=== PATIENT | female | born 1950 | race Caucasian/White ===

== ENCOUNTER 2019-03-11 12:35 | Outpatient (CLI) | payer MEDICARE, SELFPAY ==
--- NOTE | 2019-03-11 12:45 | USCV_ITS ---
Kathy Willoughby Age: 69 Gender: F : 1950 Exam Date: 03/11/2019 13:12 Ordering Phys: Debbie Burgos APRN Technologist: Sherita Chacon [place] [facility] [place]: CHEST PAIN, EDEMA BP: / HR: 68 Rhythm: Sinus Technical Quality: Fair MEASUREMENTS (Male / Female) Normal Values 2D ECHO LV Diastolic Diameter PLAX 5.7 cm 4.2 - 5.9 / 3.9 - 5.3 cm LV Systolic Diameter PLAX 2.8 cm LV Chamber Size 5.4 cm IVS Diastolic Thickness 0.8 cm 0.6 - 1.0 / 0.6 - 0.9 cm IVS Systolic Thickness 2.2 cm LVPW Diastolic Thickness 1.3 cm 0.6 - 1.0 / 0.6 - 0.9 cm LVPW Systolic Thickness 1.7 cm RV Chamber Size 4.5 cm LVOT Diameter 2.0 cm LV Ejection Fraction 2D Teich 81.8 % LV Ejection Fraction MOD 2C 59.9 % LV Ejection Fraction 2C AL 58.9 % LA Diameter 4.3 cm LA Width 3.9 cm LA Height 6.0 cm RA Width 3.8 cm RA Height 5.8 cm M-MODE LV Diastolic Diameter MM 6.8 cm 4.2 - 5.9 / 3.9 - 5.3 cm LV Systolic Diameter MM 4.5 cm LV Ejection Fraction MM Teich 61.7 % IVS Diastolic Thickness MM 0.7 cm 0.6 - 1.0 / 0.6 - 0.9 cm IVS Systolic Thickness MM 1.4 cm LVPW Diastolic Thickness MM 1.1 cm 0.6 - 1.0 / 0.6 - 0.9 cm LVPW Systolic Thickness MM 1.2 cm Aortic Annulus Diameter 3.1 cm LA Ao Ratio MM 1.4 MV E Point Septal Separation 0.6 cm DOPPLER AV Peak Velocity 176.0 cm/s LVOT Peak Velocity 109.0 cm/s AV Area Cont Eq vti 2.1 cm squared AV Area Cont Eq pk 2.0 cm squared MV Area PHT 2.5 cm squared Mitral E to A Ratio 1.3 MV E' Velocity 6.0 cm/s Mitral E to MV E' Ratio 21.3 Mitral E to LV E' Lateral Ratio 22.7 Mitral E to LV E' Septal Ratio 20.4 TR Peak Velocity 310.7 cm/s TR Peak Gradient 38.6 mmHg TR Mean Velocity 250.7 cm/s TR Mean Gradient 26.2 mmHg TR Velocity Time Integral 112.8 cm TV Peak E Velocity 51.0 cm/s Right Atrial Pressure 3.0 mmHg Pulmonary Artery Systolic Pressu 41.6 mmHg PV Peak Velocity 94.0 cm/s FINDINGS Left Ventricle Normal left ventricular cavity size. Normal left ventricular wall thickness. Normal left ventricular systolic function. Left ventricular ejection fraction is estimated at 65 %. No regional wall motion abnormalities. Grade 2 diastolic dysfunction with elevated left atrial pressure. Right Ventricle Normal right ventricular size and systolic function. Right ventricular systolic pressure 41.6 mmHg. Right Atrium Normal right atrial size. Right atrial pressure estimated at 3 mmHg. Left Atrium Mildly increased left atrial size. Mitral Valve Mildly thickened mitral valve. No mitral valve stenosis. Mild- moderate mitral valve regurgitation. Aortic Valve Structurally normal trileaflet aortic valve. No aortic valve stenosis. No aortic valve regurgitation. Tricuspid Valve Structurally normal tricuspid valve. No tricuspid valve stenosis. Mild tricuspid valve regurgitation. Pulmonic Valve Pulmonic valve not well visualized. No pulmonary valve stenosis. Trace pulmonary valve regurgitation. Pericardium No pericardial effusion. Aorta Mildly dilated ascending aorta measuring 40 mm anteroposteriorly CONCLUSIONS 1. Normal left ventricular cavity size, wall thickness and systolic function. Left ventricular ejection fraction is estimated at 65 %. No regional wall motion abnormalities. Grade 2 diastolic dysfunction with elevated left atrial pressure. 2. Normal right ventricular size and systolic function. 3. Right atrial pressure estimated at 3 mmHg. 4. Mild-moderate mitral valve regurgitation. 5. Mild tricuspid valve regurgitation. 6. Mild pulmonary hypertension with pulmonary artery pressure estimated at 42 mmHg. 7. No prior similar studies to compare. Kayleigh Samuel MD (Electronically Signed) Final Date: 11 March 2019 16:41 S
== END 2019-03-11 12:36 | disposition home or self-care (01) ==
DX: I34.0 Nonrheumatic mitral (valve) insufficiency (principal); R07.9 Chest pain, unspecified; R60.9 Edema, unspecified; I07.1 Rheumatic tricuspid insufficiency; I27.20 Pulmonary hypertension, unspecified
CPT/HCPCS: 93306

== ENCOUNTER 2019-04-06 06:17 | Day surgery (SDC) | payer MEDICARE, SELFPAY ==
[2019-04-05 13:56] VITALS: BMI 40.5
[2019-04-06] MEDS: sodium chloride 0.9% 1,000 ML 30 ML (06:45)
[2019-04-06 06:47] VITALS: BP 167/64; PULSE 73; RESP 18; TEMP 36.8; O2SAT 98
--- NOTE | 2019-04-06 06:49 | PM.HPUD ---
H&P update H&P Update: DATE OF SURGERY/PROCEDURE: 04/06/19 DATE H&P PERFORMED: 03/14/19 H&P UPDATE INFORMATION: H&P completed within last 30 days and No changes to prior documentation PREOP DIAGNOSIS: Anemia PLANNED PROCEDURE: Operation Date: 04/06/19 07:15 Proposed Procedures p EGD/Colon 94005 [id number] K21.9 Z12.11(Not Applicable) - Romain Vallejo MD s Colonoscopy(Not Applicable) - Romain Vallejo MD Full H&P Perinent History: Medical/Surgical History: Medical History (Updated 03/14/19 @ 11:03 by Romain Vallejo MD) Anemia (Acute) Family History: Family History (Updated 03/14/19 @ 10:43 by Nancy Lind RN) Father Stroke Mother Diabetes Sister Diabetes Social History: Social History Smoking and tobacco status: never smoked Second hand smoke exposure: No Smoking risk assessment/counseling performed?: No Alcohol intake: never Desire information about alcohol rehabilitation?: No Counseling given: No Desire information about substance/drug rehabilitation?: No Counseling given: No Adopted: No Caregiver/support person: Yes Lives independently: Yes Household members: spouse Housing: House Marital status: Number of children: 2 Number of grandchildren: 3 Highest education level completed: High School Graduate service: No Current occupational status: retired Current occupational exposures/hazards: No Pets and animals: Yes History of recent travel: No Sexually active: No Current gender identity: Female Nilam/Amish: [employer] [place] Special nilam needs: No Agree to transfusion: Yes Financial difficulty paying for basics: Not Very Hard
[2019-04-06 06:53] LABS: Glucose Point of Care 130 mg/dL (70-110)
--- NOTE | 2019-04-06 06:56 | P.ANES_ITS ---
Pre-Anesthetic Assessment Pre-Anesthetic Assessment: Height/Weight: Height 1.68 m Weight 113.852 kg Temp Pulse Resp BP Pulse Ox 98.3 F 73 18 167/64 98 04/06/19 06:47 04/06/19 06:47 04/06/19 06:47 04/06/19 06:47 04/06/19 06:47 Preop Diagnosis: Anemia Proposed Procedure: Operation Date: 04/06/19 07:15 Proposed Procedures p EGD/Colon [id number] K21.9 Z12.11(Not Applicable) - Romain Vallejo MD s Colonoscopy(Not Applicable) - Romain Vallejo MD Was Beta Jenny taken within 24 hours: Yes Last intake: Intake Last Liquid Date 04/05/19 Last Liquid Time 22:30 Social: Social History: No alcohol and No tobacco Exam: Pre-Anes Outpt Exam: alert, oriented x 3, clear to auscultation bilaterally and regular rate & rhythm Airway: Submandibular: WNL Cervical ROM: WNL MP: 2 Dentition: Full History/ROS: No significant history except as noted and No significant complaints Pulmonary: Pulmonary: None reported CV/HEM: CV/HEM: Anemia and HTN : : None reported Hepatic: Hepatic: None reported GI: GI: GERD Metabolic: Metabolic: DM Musc/skel: Musc/skel: None reported Neuropsych: Neuropsych: None reported Anesthetic Plan: ASA status: III Anesthesia: MAC Risk of > 500 ml blood loss (7ml/kg in children): No PFSH Anesthesia PFSH: Medical History (Updated 03/14/19 @ 11:03 by Romain Vallejo MD) Anemia (Acute) Social History Smoking and tobacco status: never smoked Second hand smoke exposure: No Smoking risk assessment/counseling performed?: No Alcohol intake: never Desire information about alcohol rehabilitation?: No Counseling given: No Desire information about substance/drug rehabilitation?: No Counseling given: No Adopted: No Caregiver/support person: Yes Lives independently: Yes Household members: spouse Housing: House Marital status: Number of children: 2 Number of grandchildren: 3 Highest education level completed: High School Graduate service: No Current occupational status: retired Current occupational exposures/hazards: No Pets and animals: Yes History of recent travel: No Sexually active: No Current gender identity: Female Nilam/[employer]regation: [employer] [place] Special nilam needs: No Agree to transfusion: Yes Financial difficulty paying for basics: Not Very Hard Female Reproductive History: Para: 1 Spontaneous abortions: Yes Data Anesthesia Other Labs: Laboratory Results - last 48 hr 04/06/19 06:50 POC Glucose 130 Cardiac Studies: No Data to Display
[2019-04-06 07:24] VITALS: BP 172/70; PULSE 58; RESP 16; TEMP 36.6; O2SAT 100
[2019-04-06 07:39] VITALS: BP 130/88; PULSE 64; RESP 16; O2SAT 100
[2019-04-06 07:52] VITALS: BP 142/82; PULSE 67; RESP 16; O2SAT 99
== END 2019-04-06 08:10 | disposition home or self-care (01) ==
PROVIDERS: PCP Nurse Practitioner Family; Visit Provider Surgery
PROC: 0DJ08ZZ Inspection of Upper Intestinal Tract, Via Natural or Artificial Opening Endoscopic (ICD-10-PCS; CPT 43235; principal; 2019-04-06 07:15)
PROC: 0DJD8ZZ Inspection of Lower Intestinal Tract, Via Natural or Artificial Opening Endoscopic (ICD-10-PCS; CPT 45378; 2019-04-06 07:15)
DX: D64.9 Anemia, unspecified (principal); K21.9 Gastro-esophageal reflux disease without esophagitis; E11.9 Type 2 diabetes mellitus without complications; Z79.4 Long term (current) use of insulin; Z83.3 Family history of diabetes mellitus; K57.30 Diverticulosis of large intestine without perforation or abscess without bleeding; I10 Essential (primary) hypertension
CPT/HCPCS: 12345; 36416; 43235; 45378; 82962; 96365; J2001; J2704; J7030

== ENCOUNTER 2020-08-23 12:33 | Outpatient (CLI) | payer MEDICARE, SELFPAY ==
--- NOTE | 2020-08-23 12:45 | USCV_ITS ---
Kathy Willoughby Age: 70 Gender: F : 1950 Exam Date: 08/23/2020 12:57 Ordering Phys: Nita Knox Technologist: Amanda Vogel Exam Location: [facility] – [place] Indication: Right carotid bruit Risk Factors: Unknown Previous Vascular Surgery: None Right Brachial BP: / Left Brachial BP: / Right Left Velocity (cm/s) Spectral Plaque Velocity (cm/s) Spectral Plaque Syst/Diast Broadening Syst/Diast Broadening 115.00/20.20 Prox CCA 122.40/ 22.10 99.40/ 21.80 Mid CCA 98.10 / 14.30 88.60/ 17.10 Hetro Distal CCA 84.90 / 17.60 Hetro 83.90/ 18.60 Hetro Prox ICA 59.80 / 17.10 Hetro 80.80/ 18.60 Mid ICA 78.60 / 24.80 107.20/34.20 Distal ICA 79.40 / 26.50 97.90 ECA 66.70 Hetro 1.21 ICA/CCA 0.94 Antegrade Vertebral Antegrade 39.70/ 14.30 cm/s 48.50/ 13.20 cm/s Tri Subclavian Bi 91.50 115.1 0 CONCLUSIONS Right ICA stenosis <50%. Mild atheromatous plaque right carotid bulb/ICA. Left ICA stenosis <50%. Mild atheromatous plaque left carotid bulb/ICA. Normal antegrade Doppler flow noted in the right vertebral artery. Normal antegrade Doppler flow noted in the left vertebral artery. Bilateral thyroid nodules. Recommend futher evaluation with ultrasound Uli De Leon MD (Electronically Signed) Final Date: 23 August 2020 14:58 S
== END 2020-08-23 12:34 | disposition home or self-care (01) ==
LOC: RAD 12:37
PROVIDERS: PCP Nurse Practitioner Family; Visit Provider Nurse Practitioner Family
DX: R09.89 Other specified symptoms and signs involving the circulatory and respiratory systems (principal); I65.23 Occlusion and stenosis of bilateral carotid arteries; E04.2 Nontoxic multinodular goiter
CPT/HCPCS: 93880

== ENCOUNTER 2020-10-09 13:06 | Outpatient (CLI) | payer MEDICARE, SELFPAY ==
--- NOTE | 2020-10-09 13:30 | US_ITS ---
WS: [id number] THYROID ULTRASOUND HISTORY: E04.1 - Nontoxic single thyroid nodule COMPARISON: None available. Right lobe: 2.2 cm x 2.1 cm x 5.0 cm (w x ap x l). Volume: 11.9 cm3. Mildly enlarged thyroid. There are multiple nodules scattered within the gland. These nodules are non specific. Nodules are less than 1 cm. Left lobe: 1.8 cm x 2.1 cm x 5.0 cm (w x ap x l). Volume: 9.9 cm3. Mildly enlarged thyroid. Multiple nodules are identified. There is a solid-appearing nodule in the LEFT neck adjacent to the mid thyroid. This nodule measures 1.3 x 1.5 x 1.7 cm. This may be external to the thyroid. Isthmus: 0.4 cm. US/US thyroid [id number] IMPRESSION: 1. Multinodular goiter. 2. Indeterminate location of a soft tissue nodule in the LEFT neck measuring 1 .3 x 1.5 x 1.7 cm. Cannot confirm location based upon this ultrasound. This cou ld be external to the thyroid and a lymph node. Recommend follow-up neck CT wit h IV contrast for further evaluation.
== END 2020-10-09 13:07 | disposition home or self-care (01) ==
PROVIDERS: PCP Nurse Practitioner Family; Visit Provider Nurse Practitioner Family
DX: E04.2 Nontoxic multinodular goiter (principal)
CPT/HCPCS: 76536

== ENCOUNTER 2020-12-26 13:53 | Outpatient (CLI) | payer MEDICARE, SELFPAY ==
[2020-12-26 16:02] LABS: Creatinine Urine, Random 144 mg/dL (28-217)
[2020-12-26 17:41] LABS: Microalbum Creatinine Ratio Ur 3604 mg/dL (0-20)
== END 2020-12-26 13:54 | disposition home or self-care (01) ==
PROVIDERS: PCP Nurse Practitioner Family; Visit Provider Internal Medicine Nephrology
DX: N18.2 Chronic kidney disease, stage 2 (mild) (principal)
CPT/HCPCS: 82044

== ENCOUNTER 2020-12-31 12:00 | Outpatient (CLI) | payer MEDICARE, SELFPAY ==
[2020-12-31 13:24] LABS: Complement C3 119 mg/dL (90-180)
[2021-01-01 10:14] LABS: PROTEIN, TOTAL 6.4 g/dL (6.1-8.1)
[2021-01-01 12:59] LABS: KAPPA LIGHT CHAIN, FREE, SERUM 94.1 mg/L (3.3-19.4); KAPPA/LAMBDA LIGHT CHAINS FREE 2.19 (0.26-1.65)
[2021-01-01 15:34] LABS: ALBUMIN 3.5 g/dL (3.8-4.8); ALPHA 1 GLOBULIN 0.3 g/dL (0.2-0.3); BETA 1 GLOBULIN 0.4 g/dL (0.4-0.6); BETA 2 GLOBULIN 0.3 g/dL (0.2-0.5); GAMMA GLOBULIN 0.9 g/dL (0.8-1.7)
[2021-01-03 09:57] LABS: Anti-Double Strand DNA AB 1 IU/mL; Jo-1 Antibody <1.0 NEG AI (<1.0 NEG); SM/RNP Antibodies <1.0 NEG AI (<1.0 NEG); SS-B/LA IGG <1.0 NEG AI (<1.0 NEG); Scleroderma Ab(Scl-70) Ab <1.0 NEG AI (<1.0 NEG); Ss-A/Ro Igg <1.0 NEG AI (<1.0 NEG)
== END 2020-12-31 12:01 | disposition home or self-care (01) ==
PROVIDERS: PCP Nurse Practitioner Family; Visit Provider Internal Medicine Nephrology
DX: N18.2 Chronic kidney disease, stage 2 (mild) (principal); D64.9 Anemia, unspecified; E04.1 Nontoxic single thyroid nodule; Z79.899 Other long term (current) drug therapy
CPT/HCPCS: 36415; 83516; 83883; 84155; 84165; 86160; 86225; 86235

== ENCOUNTER 2021-03-19 12:56 | Outpatient (CLI) | payer MEDICARE, SELFPAY ==
--- NOTE | 2021-03-19 13:10 | MM_ITS ---
WS: [id number] BILATERAL DIGITAL SCREENING MAMMOGRAPHY WITH CAD CLINICAL INFORMATION: SCREENING HISTORY: Screening mammogram. No current complaints. COMPARISON: TECHNIQUE: Bilateral CC and MLO views. FINDINGS: Scattered fibroglandular densities bilaterally. Vascular calcification. Punctate and lucent centered calcifications. Stable secretory calcifications right breast. No suspicious focal mass, asymmetry, ca lcifications, or architectural distortion. No evidence of malignancy. MM/[place] [id number] IMPRESSION: BI-RADS: 2-Benign FOLLOW UP: 1 Year Follow-up Recommend return to annual screening mammography.
== END 2021-03-19 12:57 | disposition home or self-care (01) ==
PROVIDERS: PCP Nurse Practitioner Family; Visit Provider Nurse Practitioner Family
DX: Z12.31 Encounter for screening mammogram for malignant neoplasm of breast (principal)
CPT/HCPCS: 77067

== ENCOUNTER 2021-04-22 07:02 | Outpatient (CLI) | payer MEDICARE, SELFPAY ==
--- NOTE | 2021-04-22 07:10 | US_ITS ---
WS: [id number] RENAL ULTRASOUND HISTORY: CHRONIC KIDNEY DISEASE STAGE 2 COMPARISON: None available. TECHNIQUE: 2-D and color Doppler imaging of the kidney submitted. Right kidney: 10.0 cm x 5.5 cm x 4.9 cm. Normal echogenicity with no hydronephrosis or mass. Left kidney: 12.7 cm x 6.1 cm x 5.7 cm. Normal echogenicity with no hydronephrosis or mass. Aorta: Normal. Urinary Bladder: Minimal distention. US/US renal BI* [id number] IMPRESSION: Normal renal ultrasound.
== END 2021-04-22 07:03 | disposition home or self-care (01) ==
LOC: RAD 07:05
PROVIDERS: PCP Nurse Practitioner Family; Visit Provider Internal Medicine Nephrology
DX: N18.2 Chronic kidney disease, stage 2 (mild) (principal)
CPT/HCPCS: 76770

== ENCOUNTER 2021-06-18 09:29 | Outpatient (CLI) | payer MEDICARE, SELFPAY ==
[2021-06-18 10:05] LABS: Basophils # 0.1 10^3/uL (0.0-0.1); Basophils % 0.6 %; Eosinophils # 0.2 10^3/uL (0.0-0.8); Eosinophils % 2.6 %; Hemoglobin 8.7 g/dL (11.5-15.3); Lymphocytes # 1.3 10^3/uL (0.8-4.8); Lymphocytes % 16.4 %; Mean Corpuscular Hemoglobin 25.7 pg (28.0-34.0); Mean Corpuscular Volume 85.8 fl (81-99); Monocytes # 0.7 10^3/uL (0.2-0.9); Monocytes % 8.1 %; Neutrophils # 5.77 10^3/uL (1.8-7.7); Neutrophils % 71.9 %; Nucleated Red Blood Cells % 0 %; Platelet Count 201 10^3/cmm (130-400); Red Blood Count 3.38 10^6/uL (4.1-5.3); Red Cell Distribution Width 15.1 % (12.1-15.1)
[2021-06-18 10:24] LABS: Calcium 9.1 mg/dL (8.5-10.5)
[2021-06-18 10:25] LABS: Albumin Level 3.9 g/dL (3.5-5.2); Blood Urea Nitrogen 29 mg/dL (8-23); Calcium 9.2 mg/dL (8.5-10.5); Carbon Dioxide 25 mmol/L (22-29); Chloride 102 mmol/L (98-107); Glucose 86 mg/dL (65-115); Phosphorus 4.3 mg/dL (2.5-4.5); Sodium 138 mmol/L (136-145)
[2021-06-18 10:31] LABS: Parathyroid Hormone 123.1 pg/mL (15-65)
[2021-06-18 10:32] LABS: Creatinine Urine, Random 122 mg/dL (28-217)
[2021-06-18 10:54] LABS: Microalbum Creatinine Ratio Ur 770 mg/dL (0-20); Microalbumin Random Urine 94 ug/dL (0-20)
== END 2021-06-18 09:30 | disposition home or self-care (01) ==
LOC: LAB 09:31
PROVIDERS: PCP Nurse Practitioner Family; Visit Provider Internal Medicine Nephrology
DX: N18.2 Chronic kidney disease, stage 2 (mild) (principal)
CPT/HCPCS: 36415; 80069; 82044; 82310; 83970; 85025

== ENCOUNTER 2021-07-01 09:09 | Outpatient (CLI) | payer MEDICARE, SELFPAY ==
[2021-07-01 12:55] LABS: Ferritin 43 ng/mL (15-150); Iron 44 ug/dL (37-145); Percent Saturation 16.3 % (20-50); Total Iron Binding Capacity 269 mcg/dl; Unsaturated Iron Binding 225 ug/dL (112-347)
== END 2021-07-01 09:10 | disposition home or self-care (01) ==
LOC: LAB 09:11
PROVIDERS: PCP Nurse Practitioner Family; Visit Provider Internal Medicine Nephrology
DX: N18.31 Chronic kidney disease, stage 3a (principal); D64.9 Anemia, unspecified
CPT/HCPCS: 36415; 82728; 83540; 83550

== ENCOUNTER → 2021-08-06 15:20 | Outpatient (BNVA) | payer MEDICARE, SELFPAY | PROVIDERS: PCP Nurse Practitioner Family; Visit Provider Internal Medicine Cardiovascular Disease | DX: R07.9 Chest pain, unspecified (principal); I11.9 Hypertensive heart disease without heart failure; R60.0 Localized edema | CPT/HCPCS: 93005; 99214; 99215 ==

== ENCOUNTER 2021-11-20 08:46 | Outpatient (CLI) | payer MEDICARE, SELFPAY ==
[2021-11-20 09:17] LABS: Basophils % 0.5 %; Eosinophils # 0.5 10^3/uL (0.0-0.8); Eosinophils % 5.9 %; Hematocrit 34.4 % (37.0-47.0); Hemoglobin 10.6 g/dL (11.5-15.3); Lymphocytes % 23.4 %; Mean Corpuscular HGB Conc 30.8 g/dL (30.0-36.0); Mean Corpuscular Volume 87.8 fl (81-99); Mean Platelet Volume 10.2 fL (7.4-10.4); Monocytes # 0.7 10^3/uL (0.2-0.9); Monocytes % 8.3 %; Neutrophils # 5.13 10^3/uL (1.8-7.7); Neutrophils % 61.7 %; Nucleated Red Blood Cells % 0 %; Platelet Count 241 10^3/cmm (130-400); Red Blood Count 3.92 10^6/uL (4.1-5.3); Red Cell Distribution Width 14.6 % (12.1-15.1); White Blood Count 8.3 10^3/uL (4.0-10.0)
[2021-11-20 09:38] LABS: Albumin Level 3.7 g/dL (3.5-5.2); Anion Gap 15.3 (5-19); Blood Urea Nitrogen 39 mg/dL (8-23); Calcium 9.2 mg/dL (8.5-10.5); Carbon Dioxide 27 mmol/L (22-29); Chloride 100 mmol/L (98-107); Glucose 58 mg/dL (65-115); Phosphorus 3.6 mg/dL (2.5-4.5); Potassium 4.3 mmol/L (3.5-5.1); Sodium 138 mmol/L (136-145)
[2021-11-20 09:40] LABS: Calcium 9.3 mg/dL (8.5-10.5)
[2021-11-20 10:36] LABS: Creatinine Urine, Random 97 mg/dL (28-217); Microalbumin Random Urine 25 ug/dL (0-20)
[2021-11-20 10:37] LABS: Microalbum Creatinine Ratio Ur 258 mg/dL (0-20)
[2021-11-20 10:43] LABS: Parathyroid Hormone 103.7 pg/mL (15-65)
== END 2021-11-20 08:47 | disposition home or self-care (01) ==
LOC: LAB 08:49
PROVIDERS: PCP Nurse Practitioner Family; Visit Provider Internal Medicine Nephrology
DX: N18.31 Chronic kidney disease, stage 3a (principal)
CPT/HCPCS: 80069; 82044; 82310; 83970; 85025

== ENCOUNTER 2022-02-05 08:36 | Outpatient (CLI) | payer MEDICARE, SELFPAY ==
[2022-02-05 09:42] LABS: Basophils # 0.1 10^3/uL (0.0-0.1); Basophils % 0.6 %; Eosinophils # 0.4 10^3/uL (0.0-0.8); Eosinophils % 4.3 %; Hematocrit 33.9 % (37.0-47.0); Hemoglobin 10.5 g/dL (11.5-15.3); Lymphocytes # 1.6 10^3/uL (0.8-4.8); Lymphocytes % 16.7 %; Mean Corpuscular Hemoglobin 27.4 pg (28.0-34.0); Mean Corpuscular Volume 88.5 fl (81-99); Mean Platelet Volume 10.1 fL (7.4-10.4); Monocytes # 0.8 10^3/uL (0.2-0.9); Monocytes % 8.2 %; Neutrophils # 6.59 10^3/uL (1.8-7.7); Nucleated Red Blood Cells % 0 %; Platelet Count 216 10^3/cmm (130-400); Red Blood Count 3.83 10^6/uL (4.1-5.3); Red Cell Distribution Width 13.8 % (12.1-15.1); White Blood Count 9.4 10^3/uL (4.0-10.0)
[2022-02-05 10:01] LABS: Albumin Level 3.8 g/dL (3.5-5.2); Blood Urea Nitrogen 31 mg/dL (8-23); Calcium 9.8 mg/dL (8.5-10.5); Carbon Dioxide 29 mmol/L (22-29); Chloride 97 mmol/L (98-107); Glucose 96 mg/dL (65-115); Phosphorus 4.1 mg/dL (2.5-4.5); Sodium 135 mmol/L (136-145)
[2022-02-05 10:17] LABS: 25 Hydroxy Vitamin D 8 ng/mL (30-100)
[2022-02-05 10:27] LABS: Creatinine Urine, Random 20 mg/dL (28-217); Microalbumin Random Urine 16 ug/dL (0-20)
[2022-02-05 10:31] LABS: Microalbum Creatinine Ratio Ur 800 mg/dL (0-20)
[2022-02-05 11:32] LABS: Parathyroid Hormone 101.6 pg/mL (15-65)
[2022-02-05 11:46] LABS: Calcium 9.9 mg/dL (8.5-10.5)
[2022-02-07 11:47] LABS: NT Pro B Type Natriuretic Pept 921 pg/mL (0-125)
== END 2022-02-05 08:37 | disposition home or self-care (01) ==
PROVIDERS: Nurse Practitioner Family; PCP Nurse Practitioner Family; Visit Provider Registered Nurse
DX: E55.9 Vitamin D deficiency, unspecified (principal)
CPT/HCPCS: 36415; 80069; 82044; 82306; 82310; 83880; 83970; 85025

== ENCOUNTER → 2022-02-07 10:13 | Outpatient (BNVA) | payer MEDICARE, SELFPAY | PROVIDERS: PCP Nurse Practitioner Family; Visit Provider Nurse Practitioner Family | DX: R60.0 Localized edema (principal) | CPT/HCPCS: 99214 ==

== ENCOUNTER 2022-04-24 12:48 | Outpatient (CLI) | payer MEDICARE, SELFPAY ==
--- NOTE | 2022-04-24 13:07 | MM_ITS ---
WS: [id number] Bilateral screening 3D tomosynthesis digital mammogram, 04/24/2022 Clinical Data: SCREENING Comparison: 03/19/2021, 07/03/2017, 12/21/2015, 12/13/2015. Findings: The breast parenchymal pattern shows fibroglandular tissue. No spiculated masses or clustered calcifi cations are seen. There are no secondary signs of carcinoma. There are small benign calcifications th roughout both breasts including vascular calcifications. There are bilateral lymph nodes in the axill a. MM/[place] [id number] Impression: 1. Negative bilateral mammogram unchanged. 2. Recommend annual screening mammograms. BIRADS: 1-Negative FOLLOW UP: 1 Year Follow-up The CAD store clerk checker was used.
== END 2022-04-24 12:49 | disposition home or self-care (01) ==
LOC: RAD 12:50
PROVIDERS: PCP Nurse Practitioner Family; Visit Provider Nurse Practitioner Family
DX: Z12.31 Encounter for screening mammogram for malignant neoplasm of breast (principal)
CPT/HCPCS: 77063; 77067

== ENCOUNTER 2022-06-24 09:36 | Outpatient (CLI) | payer MEDICARE, SELFPAY ==
[2022-06-24 10:48] LABS: Basophils # 0.1 10^3/uL (0.0-0.1); Basophils % 0.6 %; Eosinophils # 0.2 10^3/uL (0.0-0.8); Hematocrit 29.6 % (37.0-47.0); Lymphocytes # 1.7 10^3/uL (0.8-4.8); Lymphocytes % 19.2 %; Mean Corpuscular HGB Conc 30.4 g/dL (30.0-36.0); Mean Corpuscular Hemoglobin 26.9 pg (28.0-34.0); Mean Corpuscular Volume 88.4 fl (81-99); Mean Platelet Volume 10.5 fL (7.4-10.4); Monocytes # 0.8 10^3/uL (0.2-0.9); Monocytes % 9.1 %; Neutrophils # 5.96 10^3/uL (1.8-7.7); Neutrophils % 68.9 %; Nucleated Red Blood Cells % 0 %; Platelet Count 207 10^3/cmm (130-400); Red Blood Count 3.35 10^6/uL (4.1-5.3); White Blood Count 8.7 10^3/uL (4.0-10.0)
[2022-06-24 11:24] LABS: Calcium 8.9 mg/dL (8.5-10.5)
[2022-06-24 11:25] LABS: Albumin Level 3.9 g/dL (3.5-5.2); Anion Gap 12.6 (5-19); Blood Urea Nitrogen 33 mg/dL (8-23); Calcium 8.9 mg/dL (8.5-10.5); Carbon Dioxide 27 mmol/L (22-29); Chloride 104 mmol/L (98-107); Glucose 55 mg/dL (65-115); Iron 48 ug/dL (37-145); Percent Saturation 17.2 % (20-50); Potassium 4.6 mmol/L (3.5-5.1); Sodium 139 mmol/L (136-145); Total Iron Binding Capacity 278 mcg/dl; Unsaturated Iron Binding 230 ug/dL (112-347)
[2022-06-24 11:28] LABS: UPRO/UCREAT Ratio 0.55 mg/mg CR; Urine Creatinine 58 mg/dL (28-217); Urine Protein Random 32 mg/dL
[2022-06-24 11:29] LABS: Parathyroid Hormone 69.3 pg/mL (15-65)
[2022-06-24 11:39] LABS: 25 Hydroxy Vitamin D 18 ng/mL (30-100)
== END 2022-06-24 09:37 | disposition home or self-care (01) ==
LOC: LAB 09:42
PROVIDERS: PCP Nurse Practitioner Family; Visit Provider Internal Medicine
DX: N18.32 Chronic kidney disease, stage 3b (principal)
CPT/HCPCS: 80069; 82306; 82310; 82570; 83540; 83550; 83970; 84156; 85025

== ENCOUNTER → 2022-08-26 13:12 | Outpatient (BNVA) | payer MEDICARE, SELFPAY | PROVIDERS: PCP Nurse Practitioner Family; Visit Provider Specialist | DX: I11.0 Hypertensive heart disease with heart failure (principal); I50.30 Unspecified diastolic (congestive) heart failure; I34.0 Nonrheumatic mitral (valve) insufficiency; R60.9 Edema, unspecified | CPT/HCPCS: 99214 ==

== ENCOUNTER 2022-09-11 09:47 | Outpatient (CLI) | payer MEDICARE, SELFPAY ==
--- NOTE | 2022-09-11 10:15 | USCV_ITS ---
Kathy Willoughby Age: 72 Gender: F : 1950 Exam Date: 09/11/2022 10:18 Ordering Phys: Dian Guillen MD ([email or web address]) Technologist: Radha Castillo Exam Location: [facility] – [place] Indication: sob BP: 131 / 80 HR: 52 Rhythm: Sinus Technical Quality: Adequate MEASUREMENTS (Male / Female) Normal Values 2D ECHO LV Diastolic Diameter PLAX 6.0 cm 4.2 - 5.9 / 3.9 - 5.3 cm LV Systolic Diameter PLAX 2.9 cm IVS Diastolic Thickness 1.1 cm 0.6 - 1.0 / 0.6 - 0.9 cm IVS Systolic Thickness 2.1 cm LVPW Diastolic Thickness 0.9 cm 0.6 - 1.0 / 0.6 - 0.9 cm LVPW Systolic Thickness 1.8 cm LVOT Diameter 2.0 cm LV Ejection Fraction 2D Teich 83.2 % LV Ejection Fraction MOD 2C 66.2 % LV Ejection Fraction 2C AL 67.9 % LA Diameter 3.7 cm LA Width 3.7 cm LA Height 5.5 cm RA Width 2.9 cm RA Height 5.6 cm Aorta at Sinotubular Diameter 2.9 cm IVC Diameter 2.2 cm M-MODE Aortic Annulus Diameter 3.1 cm LA Ao Ratio MM 1.3 MV E Point Septal Separation 0.6 cm DOPPLER AV Peak Velocity 203.0 cm/s LVOT Peak Velocity 146.0 cm/s AV Area Cont Eq vti 2.4 cm squared AV Area Cont Eq pk 2.3 cm squared MV Area PHT 3.3 cm squared Mitral E to A Ratio 1.3 MV E' Velocity 71.0 cm/s Mitral E to MV E' Ratio 16.2 Mitral E to LV E' Lateral Ratio 15.6 Mitral E to LV E' Septal Ratio 17.0 TR Peak Velocity 209.5 cm/s TR Peak Gradient 17.6 mmHg Right Atrial Pressure 8.0 mmHg Pulmonary Artery Systolic Pressu 25.6 mmHg PV Peak Velocity 117.0 cm/s RV Acceleration Time 0.1 s RV Ejection Time 0.3 s RV AcT/ET 0.4 FINDINGS Left Ventricle LV systolic function is normal with EF of 55 to 60%. No regional wall motion abnormalities are seen. Right Ventricle Normal in size and function Right Atrium Normal in size Left Atrium Dilated Mitral Valve Mild mitral annular calcification. Mild mitral regurgitation. Aortic Valve Structurally normal aortic valve. No significant stenosis or regurgitation. Tricuspid Valve Mild tricuspid regurgitation. Insufficient TR jet to calculate RVSP Pulmonic Valve Trace pulmonic regurgitation Pericardium Normal Aorta Normal in size IVC Dilated CONCLUSIONS LV systolic function is normal with EF 55 to 60%. Left atrial dilation Mild mitral regurgitation Mild tricuspid regurgitation Trace pulmonic regurgitation IVC is dilated. Compared to prior echocardiogram from 2019, no significant changes are seen Oscar Denson MD (Electronically Signed) Final Date: 13 September 2022 10:29 S
== END 2022-09-11 09:48 | disposition home or self-care (01) ==
LOC: RAD 09:53
PROVIDERS: PCP Nurse Practitioner Family; Visit Provider Specialist
DX: I34.0 Nonrheumatic mitral (valve) insufficiency (principal); I10 Essential (primary) hypertension; R60.9 Edema, unspecified; I07.1 Rheumatic tricuspid insufficiency
CPT/HCPCS: 93306

== ENCOUNTER → 2022-12-10 10:42 | Outpatient (BNVA) | payer MEDICARE, SELFPAY | PROVIDERS: PCP Nurse Practitioner Family; Visit Provider Podiatrist Foot & Ankle Surgery | DX: R60.9 Edema, unspecified (principal); M76.822 Posterior tibial tendinitis, left leg; E11.42 Type 2 diabetes mellitus with diabetic polyneuropathy; L60.3 Nail dystrophy; L84 Corns and callosities; Z79.4 Long term (current) use of insulin | CPT/HCPCS: 11055; 11721; 99203 ==

== ENCOUNTER 2022-12-18 11:08 | Outpatient (CLI) | payer MEDICARE, SELFPAY ==
[2022-12-18 12:09] LABS: Basophils # 0.1 10^3/uL (0.0-0.1); Basophils % 0.6 %; Eosinophils # 0.3 10^3/uL (0.0-0.8); Eosinophils % 3.3 %; Hematocrit 39.9 % (36-47); Lymphocytes # 1.5 10^3/uL (0.8-4.8); Lymphocytes % 14.8 %; Mean Corpuscular HGB Conc 31.3 g/dL (30-55); Mean Corpuscular Hemoglobin 27.1 pg (27-33); Mean Corpuscular Volume 86.6 fl (85-98); Mean Platelet Volume 10.7 fL (7.4-10.4); Monocytes # 0.7 10^3/uL (0.2-0.9); Neutrophils # 7.63 10^3/uL (1.8-7.7); Neutrophils % 73.9 %; Nucleated Red Blood Cells % 0 %; Platelet Count 240 10^3/cmm (157-399); Red Blood Count 4.61 10^6/uL (3.85-5.65); Red Cell Distribution Width 15.4 % (12.1-15.1); White Blood Count 10.32 10^3/uL (3.29-11.43)
[2022-12-18 12:38] LABS: Creatinine Urine, Random 71 mg/dL (28-217); Microalbumin Random Urine 8 ug/dL (0-20)
[2022-12-18 12:39] LABS: Microalbum Creatinine Ratio Ur 113 mg/dL (0-20)
[2022-12-18 12:41] LABS: Calcium 9.4 mg/dL (8.5-10.5)
[2022-12-18 12:47] LABS: Parathyroid Hormone 71.8 pg/mL (15-65)
[2022-12-18 12:53] LABS: 25 Hydroxy Vitamin D 47 ng/mL (30-100); Albumin Level 3.9 g/dL (3.5-5.2); Anion Gap 15.3 (5-19); Blood Urea Nitrogen 38 mg/dL (8-23); Calcium 9.4 mg/dL (8.5-10.5); Carbon Dioxide 29 mmol/L (22-29); Chloride 99 mmol/L (98-107); Glucose 92 mg/dL (65-115); Phosphorus 3.5 mg/dL (2.5-4.5); Potassium 5.3 mmol/L (3.5-5.1); Sodium 138 mmol/L (136-145)
== END 2022-12-18 11:09 | disposition home or self-care (01) ==
PROVIDERS: PCP Nurse Practitioner Family; Visit Provider Internal Medicine Nephrology
DX: N18.31 Chronic kidney disease, stage 3a (principal); Z79.899 Other long term (current) drug therapy
CPT/HCPCS: 36415; 80069; 82044; 82306; 82310; 83970; 85025

== ENCOUNTER → 2023-02-10 09:42 | Outpatient (BNVA) | payer MEDICARE, SELFPAY | PROVIDERS: PCP Nurse Practitioner Family; Visit Provider Podiatrist Foot & Ankle Surgery | DX: R60.9 Edema, unspecified (principal); M76.822 Posterior tibial tendinitis, left leg; E11.42 Type 2 diabetes mellitus with diabetic polyneuropathy; L60.3 Nail dystrophy; L84 Corns and callosities; Z79.4 Long term (current) use of insulin; Z79.84 Long term (current) use of oral hypoglycemic drugs | CPT/HCPCS: 11055; 11721; 99213 ==

== ENCOUNTER → 2023-05-12 09:26 | Outpatient (BNVA) | payer MEDICARE, SELFPAY | PROVIDERS: PCP Nurse Practitioner Family; Visit Provider Podiatrist Foot & Ankle Surgery | DX: R60.9 Edema, unspecified (principal); M76.822 Posterior tibial tendinitis, left leg; E11.42 Type 2 diabetes mellitus with diabetic polyneuropathy; Z79.4 Long term (current) use of insulin; Z79.84 Long term (current) use of oral hypoglycemic drugs | CPT/HCPCS: 99213 ==

== ENCOUNTER → 2023-06-02 13:29 | Outpatient (BNVA) | payer MEDICARE, SELFPAY | PROVIDERS: PCP Nurse Practitioner Family; Visit Provider Internal Medicine Cardiovascular Disease | DX: I08.1 Rheumatic disorders of both mitral and tricuspid valves (principal); I11.9 Hypertensive heart disease without heart failure; I83.893 Varicose veins of bilateral lower extremities with other complications; R07.89 Other chest pain | CPT/HCPCS: 99214 ==

== ENCOUNTER 2023-06-29 08:27 | Outpatient (CLI) | payer MEDICARE, SELFPAY ==
[2023-06-29 08:55] LABS: Basophils # 0.1 10^3/uL (0.0-0.1); Basophils % 0.9 %; Eosinophils # 0.4 10^3/uL (0.0-0.8); Eosinophils % 3.9 %; Lymphocytes # 2.1 10^3/uL (0.8-4.8); Lymphocytes % 23.2 %; Mean Corpuscular HGB Conc 31.5 g/dL (30-55); Mean Corpuscular Hemoglobin 28.9 pg (27-33); Mean Corpuscular Volume 91.5 fl (85-98); Mean Platelet Volume 10.3 fL (7.4-10.4); Monocytes # 0.9 10^3/uL (0.2-0.9); Monocytes % 9.2 %; Neutrophils # 5.75 10^3/uL (1.8-7.7); Neutrophils % 62.6 %; Nucleated Red Blood Cells % 0 %; Platelet Count 218 10^3/cmm (157-399); Red Blood Count 4.26 10^6/uL (3.85-5.65); Red Cell Distribution Width 13.6 % (12.1-15.1); White Blood Count 9.19 10^3/uL (3.29-11.43)
[2023-06-29 09:15] LABS: Albumin Level 3.9 g/dL (3.5-5.2); Anion Gap 14.5 (5-19); Blood Urea Nitrogen 39 mg/dL (8-23); Calcium 9.8 mg/dL (8.5-10.5); Carbon Dioxide 30 mmol/L (22-29); Chloride 102 mmol/L (98-107); Glucose 70 mg/dL (65-115); Phosphorus 4.3 mg/dL (2.5-4.5); Potassium 4.5 mmol/L (3.5-5.1); Sodium 142 mmol/L (136-145)
[2023-06-29 09:16] LABS: Calcium 9.9 mg/dL (8.5-10.5)
[2023-06-29 09:22] LABS: Parathyroid Hormone 99.6 pg/mL (15-65)
[2023-06-29 09:59] LABS: Creatinine Urine, Random 61 mg/dL (28-217); Microalbumin Random Urine 5 ug/dL (0-20)
[2023-06-29 10:04] LABS: Microalbum Creatinine Ratio Ur 82 mg/dL (0-20)
== END 2023-06-29 08:28 | disposition home or self-care (01) ==
LOC: LAB 08:32
PROVIDERS: PCP Nurse Practitioner Family; Visit Provider Registered Nurse
DX: N18.32 Chronic kidney disease, stage 3b (principal)
CPT/HCPCS: 36415; 80069; 82044; 82310; 83970; 85025

== ENCOUNTER → 2023-08-18 08:41 | Outpatient (BNVA) | payer MEDICARE, SELFPAY | PROVIDERS: PCP Nurse Practitioner Family; Visit Provider Podiatrist Foot & Ankle Surgery | DX: R60.9 Edema, unspecified (principal); M76.822 Posterior tibial tendinitis, left leg; E11.42 Type 2 diabetes mellitus with diabetic polyneuropathy; L84 Corns and callosities; L60.3 Nail dystrophy; Z79.4 Long term (current) use of insulin; Z79.84 Long term (current) use of oral hypoglycemic drugs | CPT/HCPCS: 11055; 11721 ==

== ENCOUNTER → 2023-10-27 08:31 | Outpatient (BNVA) | payer MEDICARE, SELFPAY | PROVIDERS: PCP Nurse Practitioner Family; Visit Provider Podiatrist Foot & Ankle Surgery | DX: E11.42 Type 2 diabetes mellitus with diabetic polyneuropathy (principal); L60.0 Ingrowing nail; Z79.4 Long term (current) use of insulin; Z79.84 Long term (current) use of oral hypoglycemic drugs | CPT/HCPCS: 11730 ==

== ENCOUNTER 2023-11-10 08:15 | Outpatient (CLI) | payer MEDICARE, SELFPAY ==
[2023-11-10 09:41] LABS: Basophils # 0.1 10^3/uL (0.0-0.1); Basophils % 0.7 %; Eosinophils # 0.3 10^3/uL (0.0-0.8); Hematocrit 37.9 % (36-47); Lymphocytes % 23.8 %; Mean Corpuscular HGB Conc 31.9 g/dL (30-55); Mean Corpuscular Hemoglobin 29.6 pg (27-33); Mean Corpuscular Volume 92.7 fl (85-98); Mean Platelet Volume 10.9 fL (7.4-10.4); Monocytes # 0.7 10^3/uL (0.2-0.9); Monocytes % 8.2 %; Neutrophils # 5.38 10^3/uL (1.8-7.7); Neutrophils % 64.1 %; Nucleated Red Blood Cells % 0 %; Platelet Count 215 10^3/cmm (157-399); Red Blood Count 4.09 10^6/uL (3.85-5.65); Red Cell Distribution Width 12.7 % (12.1-15.1)
[2023-11-10 10:07] LABS: Urine Creatinine 79 mg/dL (28-217); Urine Protein Random 12 mg/dL
[2023-11-10 10:11] LABS: Calcium 9.4 mg/dL (8.5-10.5); Parathyroid Hormone 89.3 pg/mL (15-65)
[2023-11-10 10:12] LABS: UPRO/UCREAT Ratio 0.15 mg/mg CR
[2023-11-10 10:21] LABS: 25 Hydroxy Vitamin D 39 ng/mL (30-100)
[2023-11-12 09:16] LABS: Albumin Level 3.9 g/dL (3.5-5.2); Anion Gap 18.6 (5-19); Blood Urea Nitrogen 44 mg/dL (8-23); Calcium 8.9 mg/dL (8.5-10.5); Carbon Dioxide 26 mmol/L (22-29); Chloride 98 mmol/L (98-107); Glucose 60 mg/dL (65-115); Phosphorus 3.5 mg/dL (2.5-4.5); Sodium 136 mmol/L (136-145)
[2023-11-12 09:57] LABS: Potassium 6.6 mmol/L (3.5-5.1)
== END 2023-11-10 08:16 | disposition home or self-care (01) ==
PROVIDERS: PCP Nurse Practitioner Family; Visit Provider Nurse Practitioner
DX: N18.32 Chronic kidney disease, stage 3b (principal); E55.9 Vitamin D deficiency, unspecified; N25.81 Secondary hyperparathyroidism of renal origin
CPT/HCPCS: 36415; 80069; 82306; 82310; 82570; 83970; 84156; 85025

== ENCOUNTER 2023-11-16 08:27 | Outpatient (CLI) | payer MEDICARE, SELFPAY ==
[2023-11-16 09:47] LABS: Urine Creatinine 106 mg/dL (28-217); Urine Protein Random 8 mg/dL
[2023-11-16 09:51] LABS: UPRO/UCREAT Ratio 0.08 mg/mg CR
== END 2023-11-16 08:28 | disposition home or self-care (01) ==
PROVIDERS: PCP Nurse Practitioner Family; Visit Provider Nurse Practitioner
DX: N18.32 Chronic kidney disease, stage 3b (principal); E55.9 Vitamin D deficiency, unspecified; N25.81 Secondary hyperparathyroidism of renal origin
CPT/HCPCS: 82570; 84156

== ENCOUNTER → 2023-11-24 09:08 | Outpatient (BNVA) | payer MEDICARE, SELFPAY | PROVIDERS: PCP Nurse Practitioner Family; Visit Provider Podiatrist Foot & Ankle Surgery | DX: E11.42 Type 2 diabetes mellitus with diabetic polyneuropathy (principal); R60.9 Edema, unspecified; L84 Corns and callosities; L60.3 Nail dystrophy; Z79.4 Long term (current) use of insulin; Z79.84 Long term (current) use of oral hypoglycemic drugs | CPT/HCPCS: 11055; 11721 ==

== ENCOUNTER → 2024-04-04 08:14 | Outpatient (BNVA) | payer MEDICARE, SELFPAY | PROVIDERS: PCP Nurse Practitioner Family; Visit Provider Podiatrist Foot & Ankle Surgery | DX: L60.8 Other nail disorders (principal); E11.42 Type 2 diabetes mellitus with diabetic polyneuropathy; R60.9 Edema, unspecified; L84 Corns and callosities; L60.3 Nail dystrophy; L03.115 Cellulitis of right lower limb; Z79.4 Long term (current) use of insulin; Z79.84 Long term (current) use of oral hypoglycemic drugs | CPT/HCPCS: 11055; 11721; 99213 ==

== ENCOUNTER 2024-05-11 08:51 | Outpatient (CLI) | payer MEDICARE, SELFPAY ==
[2024-05-11 09:43] LABS: Basophils # 0.1 10^3/uL (0.0-0.1); Basophils % 0.8 %; Eosinophils # 0.3 10^3/uL (0.0-0.8); Eosinophils % 3.4 %; Hematocrit 36.7 % (36-47); Lymphocytes # 1.9 10^3/uL (0.8-4.8); Lymphocytes % 20.7 %; Mean Corpuscular HGB Conc 32.2 g/dL (30-55); Mean Corpuscular Hemoglobin 29.4 pg (27-33); Mean Corpuscular Volume 91.5 fl (85-98); Mean Platelet Volume 10.8 fL (7.4-10.4); Monocytes # 0.8 10^3/uL (0.2-0.9); Monocytes % 8.7 %; Neutrophils # 6.02 10^3/uL (1.8-7.7); Neutrophils % 66.3 %; Nucleated Red Blood Cells % 0 %; Platelet Count 212 10^3/cmm (157-399); Red Blood Count 4.01 10^6/uL (3.85-5.65); Red Cell Distribution Width 12.4 % (12.1-15.1); White Blood Count 9.08 10^3/uL (3.29-11.43)
[2024-05-11 10:05] LABS: Albumin Level 4.1 g/dL (3.5-5.2); Anion Gap 13.7 (5-19); Blood Urea Nitrogen 49 mg/dL (8-23); Calcium 9.5 mg/dL (8.5-10.5); Carbon Dioxide 30 mmol/L (22-29); Chloride 96 mmol/L (98-107); Glucose 97 mg/dL (65-115); Phosphorus 3.7 mg/dL (2.5-4.5); Potassium 4.7 mmol/L (3.5-5.1); Sodium 135 mmol/L (136-145)
[2024-05-11 10:07] LABS: Calcium 9.6 mg/dL (8.5-10.5)
[2024-05-11 10:10] LABS: Creatinine Urine, Random 36 mg/dL (28-217); Microalbumin Random Urine 2 ug/dL (0-20)
[2024-05-11 10:12] LABS: Microalbum Creatinine Ratio Ur 56 mg/dL (0-20)
[2024-05-11 10:14] LABS: Parathyroid Hormone 102.5 pg/mL (15-65)
== END 2024-05-11 08:52 | disposition home or self-care (01) ==
PROVIDERS: PCP Nurse Practitioner Family; Visit Provider Registered Nurse
DX: N18.32 Chronic kidney disease, stage 3b (principal)
CPT/HCPCS: 36415; 80069; 82044; 82310; 83970; 85025

== ENCOUNTER 2024-05-25 12:33 | Observation (INO) | payer MEDICARE, SELFPAY ==
[2024-05-25] VITALS (10 sets, daily range): BP systolic 111–159; BP diastolic 58–93; PULSE 59–73; RESP 16–20; TEMP 36.3–36.6; O2SAT 87–96; BMI 34.7
--- NOTE | 2024-05-25 12:41 | XRR_ITS ---
PROCEDURE INFORMATION: Exam: XR Chest Exam date and time: 05/25/2024 12:46 PM Age: 74 years old Clinical indication: Cough and dyspnea; Additional info: Dyspnea/cough TECHNIQUE: Imaging protocol: Radiologic exam of the chest. Views: 1 view. COMPARISON: No relevant prior studies available. FINDINGS: Lungs: Unremarkable. No consolidation. Pleural spaces: Unremarkable. No pleural effusion. No pneumothorax. Heart/Mediastinum: Unremarkable. No cardiomegaly. Bones/joints: Unremarkable. XR/XR chest 1V portable [id number] IMPRESSION: No acute findings.
--- NOTE | 2024-05-25 12:42 | ECG_ITS ---
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 Measurements Intervals [place] Rate: 63 P: 72 KS: 188 QRS: -69 QRSD: 123 T: 59 QT: 427 QTc: 439 Interpretive Statements SINUS RHYTHM WITH OCCASIONAL SUPRAVENTRICULAR PREMATURE COMPLEXES LEFT ANTERIOR FASCICULAR BLOCK [QRS AXIS <= -45, QR IN I, RS IN II] MINIMAL VOLTAGE CRITERIA FOR LVH, CONSIDER NORMAL VARIANT [MEETS CRITERIA IN ONE OF: R(aVL), S(V1), R(V5), R(V5/V6)+S(V1)] SEPTAL MYOCARDIAL INFARCTION , PROBABLY OLD [40+ ms Q WAVE IN V1/V2] POSSIBLE LATERAL MYOCARDIAL INFARCTION , PROBABLY OLD [30 ms Q WAVE IN I/aVL/V5/V6] No previous ECG available for comparison Electronically Signed On 05-25-2024 22:02:49 CDT by Kaylen Ku M.D. [id number]
[2024-05-25 13:04] LABS: ABG PCO2 45.2 mmHg (35-45); ABG PH Result 7.39 (7.35-7.45); Alveolar-Arterial Oxygen Gradi 9.6 mmHg (5-10); Arterial Blood Gas Hematocrit 37.4 % (37-47); Base Excess ABG 1.8 mmol/L (-2.0-2.0); Blood Gas Operator Identificat AMH; Blood Gas Sample Site Brachial, right; Blood Gas Sample Type Arterial; Carboxyhemoglobin 1.1 %THgb (0.4-20.1); HCO3 ABG 27.3 mmol/L (22-26); Ionized Calcium Level - ABG 1.1 mmol/L (1.1-1.4); Oxygen Device NC; Oxygen Saturation ABG 92.9; PO2 ABG 66.2 mmHg (80.0-100.0); PO2 FiO2 Ratio Arterial Blood 236; Potassium Level - ABG 3.7 mmol/L (3.5-5.0); Total Hemoglobin 12.2 g/dL (12-16)
[2024-05-25 13:06] LABS: Basophils % 0.3 %; Eosinophils % 0.2 %; Hematocrit 37.1 % (36-47); Lymphocytes # 1.1 10^3/uL (0.8-4.8); Lymphocytes % 16.5 %; Mean Corpuscular HGB Conc 31.3 g/dL (30-55); Mean Corpuscular Hemoglobin 28.7 pg (27-33); Mean Corpuscular Volume 91.8 fl (85-98); Monocytes # 0.7 10^3/uL (0.2-0.9); Monocytes % 11.1 %; Neutrophils % 71.7 %; Nucleated Red Blood Cells % 0 %; Platelet Count 150 10^3/cmm (157-399); Red Blood Count 4.04 10^6/uL (3.85-5.65); Red Cell Distribution Width 12.5 % (12.1-15.1); White Blood Count 6.55 10^3/uL (3.29-11.43)
--- NOTE | 2024-05-25 13:10 | W.ED.WEAKNES ---
HPI - Weakness General: Chief complaint: Weakness Stated complaint: General weakness Time Seen by Provider: 05/25/24 12:40 History of Present Illness: 74-year-old female presents emergency room complaining of shortness of breath mildly productive cough been going on for last 4 days. Patient denies fever sweats chills denies chest pain no orthopnea. No swelling in legs or feet. Denies hemoptysis. Not exposed to anyone flu or COVID recently. Audible wheeze. Associated symptoms: Denies chest pain, chills, dysuria or fever(s) Review of Systems Const: Denies: fever(s) or chills Card: Denies: chest pain Resp: Reports: dyspnea GI: Denies: abdominal pain : Denies: dysuria, urinary frequency or urinary urgency Musc: Denies: neck pain or back pain Skin/Breast: Denies: rash PFSH ED PFSH: Medical History Diabetes Epigastric pain Diverticulitis Callus of foot Onychomycosis Diabetic autonomic neuropathy Posterior tibial tendon dysfunction (PTTD) of left lower extremity Hiatal hernia Hyperlipidemia Hypertension Varicose veins of bilateral lower extremities with other complications Lower extremity edema Diastolic dysfunction Tricuspid valve regurgitation Mitral valve regurgitation Anemia EGD findings showed hiatal hernia and colonoscopy showed diverticulosis Surgical History S/P skin and subcutaneous tissue surgery Family History Father No problems noted. Mother Diabetes Chronic kidney disease (CKD) Hypertension Hyperlipidemia Sister Diabetes Stroke Hyperlipidemia Breast cancer Grandfather CAD (coronary artery disease) Lung disease Hypertension Grandmother Stroke Hypertension Denies family history of Clotting disorder Dementia Suicide Anesthesia complication Bleeding disorder Social History Smoking and tobacco/nicotine status: never used tobacco/nicotine Second hand smoke exposure: No Alcohol intake: never Substance/Drug Use: never Adopted: No Caregiver/support person: Yes Lives independently: Yes Household members: spouse Housing: House Marital status: Number of children: 2 Number of grandchildren: 3 Highest education level completed: High School Graduate service: No Current occupational status: retired Current occupational exposures/hazards: No Pets and animals: Yes Sexually active: No Do you think of yourself as: Straight/Heterosexual Current gender identity: Female Nilam/Orthodoxy: [employer]ist of [place] Special nilam needs: No Agree to transfusion: Yes Female Reproductive History: Para: 1 Spontaneous abortions: Yes Date of menopause: 03/09/79 Physical Exam Const: COMMON NORMALS: no acute distress GENERAL APPEARANCE: cooperative and comfortable ORIENTATION/CONSCIOUSNESS: Yes awake, Yes oriented to person, Yes oriented to place and Yes oriented to time HENMT: COMMON NORMALS: normocephalic, atraumatic and hearing grossly normal bilaterally HEAD & SCALP: normocephalic and atraumatic Resp: COMMON NORMALS: normal respiratory effort, No retractions and No use of accessory muscles AUSCULTATION: wheezes Cardio: COMMON NORMALS: regular rate, regular rhythm and No murmurs present (Cardio) RATE: regular rate RHYTHM: regular rhythm GI: COMMON NORMALS: Soft to palpation and No hepatosplenomegaly present AUSCULTATION: Yes normoactive bowel sounds PALPATION: Yes Soft to palpation, No Tenderness to palpation present (GI), No Guarding due to palpation present (GI) and Yes No hepatosplenomegaly present Extremity: COMMON NORMALS: normal to inspection, capillary refill normal, no clubbing, cyanosis or edema, no calf tenderness and no pedal edema Neuro: SENSORIUM/ORIENTATION: Yes oriented to person, Yes oriented to place and Yes oriented to time Skin: COMMON NORMALS: no rashes or lesions noted GENERAL SKIN EXAM: no rashes or lesions noted Course Vital Signs: Vital signs: Vital Signs Temperature 97.8 F 05/25/24 12:35 Pulse Rate 67 05/25/24 16:15 Respiratory Rate 20 H 05/25/24 15:29 Blood Pressure 147/70 05/25/24 16:15 Pulse Oximetry 92 05/25/24 16:15 Oxygen Delivery Me thod Nasal Cannula 05/25/24 15:29 Oxygen Flow Rate 2 05/25/24 15:29 MDM - Weakness Medical Decision Making Mild hypoxia with influenza. Will admit for supportive cares nebulizers oxygen support discussed with hospitalist patient placed on observation Medical Records I reviewed the patient's medical records. Lab Data I reviewed the patient's lab results. 05/25/24 13:02 05/25/24 13:02 Radiology Impressions Chest X-Ray 05/25/24 12:41 IMPRESSION: No acute findings. Laboratory Results WBC 6.55 10^3/uL (3.29-11.43) 05/25/24 13:02 RBC 4.04 10^6/uL (3.85-5.65) 05/25/24 13:02 Hgb 11.60 g/dL (11.27-16.99) 05/25/24 13:02 Hct 37.1 % (36-47) 05/25/24 13:02 MCV 91.8 fl (85-98) 05/25/24 13:02 MCH 28.7 pg (27-33) 05/25/24 13:02 MCHC 31.3 g/dL (30-55) 05/25/24 13:02 RDW 12.5 % (12.1-15.1) 05/25/24 13:02 Plt Count 150 10^3/cmm (157-399) L 05/25/24 13:02 MPV 10.0 fL (7.4-10.4) 05/25/24 13:02 Neut % (Auto) 71.7 % 05/25/24 13:02 Lymph % (Auto) 16.5 % 05/25/24 13:02 [place] % (Auto) 11.1 % 05/25/24 13:02 Eos % (Auto) 0.2 % 05/25/24 13:02 Baso % (Auto) 0.3 % 05/25/24 13:02 Neut # (Auto) 4.70 10^3/uL (1.8-7.7) 05/25/24 13:02 Lymph # (Auto) 1.1 10^3/uL (0.8-4.8) 05/25/24 13:02 [place] # (Auto) 0.7 10^3/uL (0.2-0.9) 05/25/24 13:02 Eos # (Auto) 0.0 10^3/uL (0.0-0.8) 05/25/24 13:02 Baso # (Auto) 0.0 10^3/uL (0.0-0.1) 05/25/24 13:02 Nucleated RBC % (auto) 0 % 05/25/24 13:02 Nucleated RBCs # 0.0 /100WBC 05/25/24 13:02 Specimen Type Arterial 05/25/24 12:52 Sample Site Brachial, right 05/25/24 12:52 ABG pH 7.39 (7.35-7.45) 05/25/24 12:52 ABG pCO2 45.2 mmHg (35-45) H 05/25/24 12:52 ABG pO2 66.2 mmHg (80.0-100.0) L 05/25/24 12:52 ABG PO2/FiO2 Ratio 236 05/25/24 12:52 ABG HCO3 27.3 mmol/L (22-26) H 05/25/24 12:52 ABG O2 Saturation 92.9 05/25/24 12:52 ABG Base Excess 1.8 mmol/L (-2.0-2.0) 05/25/24 12:52 Soham Test N/a 05/25/24 12:52 A-a O2 Gradient 9.6 mmHg (5-10) 05/25/24 12:52 Hematocrit 37.4 % (37-47) 05/25/24 12:52 Hgb O2 Saturation 91.0 % (95-100) L 05/25/24 12:52 Carboxyhemoglobin 1.1 %THgb (0.4-20.1) 05/25/24 12:52 Methemoglobin 1.0 % (0.4-1.5) 05/25/24 12:52 Total Hemoglobin 12.2 g/dL (12-16) 05/25/24 12:52 Sodium 134.0 mmol/L (131-143) 05/25/24 12:52 Potassium 3.7 mmol/L (3.5-5.0) 05/25/24 12:52 Glucose 167.0 mg/dL (70-115) H 05/25/24 12:52 Ionized Calcium 1.1 mmol/L (1.1-1.4) 05/25/24 12:52 O2 Delivery Device Nc 05/25/24 12:52 O2 Liters/Min 2.0 % 05/25/24 12:52 FiO2 28.0 % 05/25/24 12:52 Application Security Engineer ID Amh 05/25/24 12:52 Sodium 133 mmol/L (136-145) L 05/25/24 13:02 Potassium 3.9 mmol/L (3.5-5.1) 05/25/24 13:02 Chloride 95 mmol/L (98-107) L 05/25/24 13:02 Carbon Dioxide 26 mmol/L (22-29) 05/25/24 13:02 Anion Gap 15.9 (5-19) 05/25/24 13:02 BUN 55 mg/dL (8-23) H 05/25/24 13:02 Creatinine 1.8 mg/dL (0.5-0.9) H 05/25/24 13:02 GFR Calculation Not Reportable 05/25/24 13:02 Glucose 163 mg/dL (65-115) H 05/25/24 13:02 Calculated Osmolality 295 mOsm/kg (285-295) 05/25/24 13:02 Lactic Acid 1.1 mmol/L (0.5-2.2) 05/25/24 13:02 Calcium 8.3 mg/dL (8.5-10.5) L 05/25/24 13:02 Total Bilirubin 0.3 mg/dL (0.15-1.2) 05/25/24 13:02 AST 28 U/L (0-32) 05/25/24 13:02 ALT 17 U/L (0-33) 05/25/24 13:02 Alkaline Phosphatase 52 U/L (35-105) 05/25/24 13:02 Total Protein 6.2 g/dL (6.6-8.7) L 05/25/24 13:02 Albumin 3.3 g/dL (3.5-5.2) L 05/25/24 13:02 Globulin 2.9 g/dL (1.3-4.6) 05/25/24 13:02 Urine Color Yellow (Yellow) 05/25/24 13:23 Urine Appearance Clear (CLEAR) 05/25/24 13:23 Urine pH 5.0 (5-7) 05/25/24 13:23 Ur Specific [place] 1.015 (1.005-1.030) 05/25/24 13:23 Urine Protein Trace (Negative) A 05/25/24 13:23 Urine Glucose (UA) Negative (Normal) 05/25/24 13:23 Urine Ketones Negative (Negative) 05/25/24 13:23 Urine Blood Negative (Negative) 05/25/24 13:23 Urine Nitrate Negative (Negative) 05/25/24 13:23 Urine Bilirubin Negative (Negative) 05/25/24 13:23 Urine Urobilinogen 1.0 mg/dL (Negative) 05/25/24 13:23 Ur Leukocyte Esterase Negative (Negative) 05/25/24 13:23 Urine RBC 0-2 /hpf (0-2) 05/25/24 13:23 Urine WBC 0-5 /hpf (0-5) 05/25/24 13:23 Ur Squamous Epith Cells 0-5 /hpf (0-5) 05/25/24 13:23 Amorphous Sediment Not Reportable 05/25/24 13:23 Urine Bacteria None seen /hpf (NONE) 05/25/24 13:23 Hyaline Casts 15.71 /lpf 05/25/24 13:23 Influenza A (PCR) Positive (Negative) 05/25/24 12:50 Influenza Type B (PCR) Negative (Negative) 05/25/24 12:50 RSV (PCR) Negative (Negative) 05/25/24 12:50 SARS-CoV-2 (PCR) Negative (Negative) 05/25/24 12:50 All radiology interpretation(s) finalized by discharge Discharge Plan Discharge Patient Disposition: Admitted As Inpatient Admit Provider: Sarah Clancy Clinical Impression: Hypoxia, Influenza A Condition: Stable Coding Level of Care Code ED Glazier Supervisor for Chg Fwd Related Data Home Medications ?Medication ?Instructions ?Recorded ?Confirmed gabapentin 300 mg capsule 300 mg PO TID 03/14/19 05/25/24 metformin 500 mg tablet 500 mg PO BID 03/14/19 05/25/24 ferrous sulfate 325 mg (65 mg 325 mg PO DAILY PRN iron 02/04/21 05/25/24 iron) tablet valsartan 160 mg tablet 160 mg PO BID 02/19/21 05/25/24 insulin glargine 100 unit/mL (3 30 unit SUBCUT DAILY 08/06/21 05/25/24 mL) subcutaneous pen (Lantus Solostar U-100 Insulin) ezetimibe 10 mg tablet 10 mg PO DAILY 02/07/22 05/25/24 amlodipine 5 mg tablet 5 mg PO DAILY 05/25/24 05/25/24 furosemide 40 mg tablet 40 mg PO DAILY 05/25/24 05/25/24 Previous Rx's ?Medication ?Instructions ?Recorded isosorbide mononitrate 30 mg 15 mg (1/2 x 30 mg) PO BID #90 tabs 11/21/20 tablet,extended release 24 hr carvedilol 12.5 mg tablet 12.5 mg PO BID #180 tabs 02/12/21 Allergies Allergy/AdvReac Type Severity Reaction Status Date / Time cimetidine (From Tagamet) Allergy Severe Suicidal Verified 04/04/24 08:20 [facility] AdvReac Mild Unknown Verified 04/04/24 08:20
[2024-05-25 13:24] LABS: Alanine Aminotransferase 17 U/L (0-33); Albumin Level 3.3 g/dL (3.5-5.2); Alkaline Phosphatase 52 U/L (35-105); Anion Gap 15.9 (5-19); Aspartate Amino Transferase 28 U/L (0-32); Blood Urea Nitrogen 55 mg/dL (8-23); Calcium 8.3 mg/dL (8.5-10.5); Carbon Dioxide 26 mmol/L (22-29); Chloride 95 mmol/L (98-107); Creatinine Clr Calc Pharmacy 31.7981; Globulin 2.9 g/dL (1.3-4.6); Glucose 163 mg/dL (65-115); Osmolality Calculated 295 mOsm/kg (285-295); Potassium 3.9 mmol/L (3.5-5.1); Sodium 133 mmol/L (136-145); Total Bilirubin 0.3 mg/dL (0.15-1.2); Total Protein 6.2 g/dL (6.6-8.7)
[2024-05-25 13:41] LABS: Bilirubin Urine Negative (Negative); Blood Urine Negative (Negative); Glucose Urine UA Negative (Normal); Ketones Urine Negative (Negative); Leukocyte Esterase Urine Negative (Negative); Nitrate Urine Negative (Negative); Protein Urine Trace (Negative); Specific Gravity, Urine 1.015 (1.005-1.030); Urine Appearance Clear (CLEAR); Urine Color Yellow (Yellow)
[2024-05-25 13:44] LABS: Influenza A POSITIVE (Negative); Influenza B NEGATIVE (Negative); Respiratory Syncytial Virus Ce NEGATIVE (Negative); SARS-CoV-2 PCR NEGATIVE (Negative)
[2024-05-25 13:46] LABS: Add Urine Microscopic? YES; Bacteria Urine None Seen /hpf; Hyaline Casts Urine 15.71 /lpf; RBC Urine 0-2 /hpf (0-2); Squamous Epithelial Cell Urine 0-5 /hpf (0-5); WBC Urine 0-5 /hpf (0-5)
[2024-05-25 14:21] LABS: Lactic Sepsis W/Reflex 1.1 mmol/L (0.5-2.2)
[2024-05-25] MEDS: methylPREDNISolone sod succ 125 mg/2 mL INJ IVP (14:22)
[2024-05-25] MEDS: ipratropium-albuterol 3 mL Neb INHALATION ×2 (15:13→19:52)
[2024-05-25 16:51] LABS: Glucose Point of Care 158 mg/dL (70-110)
--- NOTE | 2024-05-25 18:27 | PM.HP ---
Providers/Chief Complaint Admitting Physician: Sarah Clancy MD Primary Care Provider: Debbie Burgos, SANITATION INSPECTOR Chief Complaint: General weakness History of Present Illness Kathy Willoughby is a 74 year old female with PMH HTN who presented to the hospital with generalized weakness starting 4-5 days ago. States she has been having cough, weakness and fatigue. NO chest pain. ROS + for chills, no fever measured at home. No Le swelling. She presnted to ER with these complaints, noted she was short of breath with ADLs. Here she was found to be + influenza A. Since coming up to the floor, she has had one bloody BM with broght red blood. She estimates volume was about 1/2 cup. Has a past h/o GI bleed and anemai for which she is on iron supplementation. States she had an EGD and colonoscopy years ago which did not find an obvious source of bleed .no known hemorrhoids. Review of Systems General: Reports: 10 or more systems reviewed and unremarkable except in HPI and below Const: Denies: fever(s), chills or body aches Eyes: Denies: change in vision, blurry vision or photophobia ENMT: Reports: hoarseness; Denies: throat pain, enlarged tonsils, odynophagia or nasal congestion Card: Denies: chest pain, palpitations, irregular heart rhythm, edema, swelling of feet/ankles, lightheadedness, pre-syncope, dyspnea on exertion or orthopnea Resp: Denies: dyspnea, productive cough, non-productive cough, wheezing, stridor, pain on inspiration, change in phlegm color, hemoptysis or chest congestion GI: Denies: abdominal pain, nausea, vomiting, hematemesis, coffee ground emesis, dysphagia, heartburn, diarrhea, constipation, GI cramping, change in stool character, hematochezia or melena : Denies: flank pain, difficulty voiding, dysuria, urinary frequency, urinary urgency, urinary hesitancy or hematuria Musc: Denies: neck pain, back pain, extremity pain, joint swelling, joint warmth or deformity Neuro: Denies: headache(s), numbness in extremities, weakness in extremities, sensory changes, difficulty walking, frequent falls, dizziness, vertigo, behavioral changes, Slurred speech present or seizure-like activity Psych: Denies: anxiety, depression, suicidal ideation or homicidal ideation Endo: Denies: polyuria, polydipsia, tired all the time, cold intolerance or hot flashes Jewel/Lymph: Denies: easy bruising or easy bleeding Medications/Allergies Home Medications ?Medication ?Instructions ?Recorded ?Confirmed ?Last Taken ?Type gabapentin 300 mg capsule 300 mg PO TID 03/14/19 05/25/24 04/05/19 History metformin 500 mg tablet 500 mg PO BID 03/14/19 05/25/24 04/05/19 History isosorbide mononitrate 30 mg 15 mg (1/2 x 30 mg) PO BID #90 tabs 11/21/20 05/25/24 Unknown Rx tablet,extended release 24 hr ferrous sulfate 325 mg (65 mg 325 mg PO DAILY PRN iron 02/04/21 05/25/24 Unknown History iron) tablet carvedilol 12.5 mg tablet 12.5 mg PO BID #180 tabs 02/12/21 05/25/24 Unknown Rx valsartan 160 mg tablet 160 mg PO BID 02/19/21 05/25/24 Unknown History insulin glargine 100 unit/mL (3 30 unit SUBCUT DAILY 08/06/21 05/25/24 Unknown History mL) subcutaneous pen (Lantus Solostar U-100 Insulin) ezetimibe 10 mg tablet 10 mg PO DAILY 02/07/22 05/25/24 Unknown History amlodipine 5 mg tablet 5 mg PO DAILY 05/25/24 05/25/24 Unknown History furosemide 40 mg tablet 40 mg PO DAILY 05/25/24 05/25/24 Unknown History Allergies Allergy/AdvReac Type Severity Reaction Status Date / Time cimetidine (From Tagamet) Allergy Severe Suicidal Verified 04/04/24 08:20 levofloxacin (From Levaquin) AdvReac Mild Unknown Verified 04/04/24 08:20 PFSH Acute PFSH: Medical History Diabetes Epigastric pain Diverticulitis Callus of foot Onychomycosis Diabetic autonomic neuropathy Posterior tibial tendon dysfunction (PTTD) of left lower extremity Hiatal hernia Hyperlipidemia Hypertension Varicose veins of bilateral lower extremities with other complications Lower extremity edema Diastolic dysfunction Tricuspid valve regurgitation Mitral valve regurgitation Anemia EGD findings showed hiatal hernia and colonoscopy showed diverticulosis Surgical History S/P skin and subcutaneous tissue surgery Family History Father No problems noted. Mother Diabetes Chronic kidney disease (CKD) Hypertension Hyperlipidemia Sister Diabetes Stroke Hyperlipidemia Breast cancer Grandfather CAD (coronary artery disease) Lung disease Hypertension Grandmother Stroke Hypertension Denies family history of Clotting disorder Dementia Suicide Anesthesia complication Bleeding disorder Social History Smoking and tobacco/nicotine status: never used tobacco/nicotine Second hand smoke exposure: No Alcohol intake: never Substance/Drug Use: never Adopted: No Caregiver/support person: Yes Lives independently: Yes Household members: spouse Housing: House Marital status: Number of children: 2 Number of grandchildren: 3 Highest education level completed: High School Graduate service: No Current occupational status: retired Current occupational exposures/hazards: No Pets and animals: Yes Sexually active: No Do you think of yourself as: Straight/Heterosexual Current gender identity: Female Nilam/Faith: [employer] [place] Special nilam needs: No Agree to transfusion: Yes Female Reproductive History: Para: 1 Spontaneous abortions: Yes Date of menopause: 03/09/79 Vitals/I&O/Wt Last Vital Signs Temp 97.6 F 05/25/24 17:52 Pulse 59 L 05/25/24 17:52 Resp 16 05/25/24 17:52 BP 142/77 05/25/24 17:52 Pulse Ox 94 05/25/24 17:52 O2 Del Method Nasal Cannula 05/25/24 17:52 O2 Flow Rate 2 05/25/24 15:29 05/25/24 05/25/24 05/25/24 06:59 14:59 22:59 Intake Total 480 / 480 Balance 480 / 480 Weight last 48 hrs Weight 97.522 kg Weight 97.522 kg Physical Exam Narrative: General: No acute distress, AO x3 HEENT: PERRLA, pupils bilaterally equal and reactive, pallors not present Chest: Normal vesicular breath sounds, no added sounds, equal good air entry bilaterally CVS: S1-S2 regular, no murmurs, no tachycardia, no gallops, no rubs Abdomen: Soft, nontender, no organomegaly, bowel sounds present Neuro: No focal deficits, no facial deformity, AO x3, power 5/5 in all limbs Data 05/26/24 16:42 05/26/24 00:32 Micro: Microbiology 05/25/24 14:24 Blood Culture - Preliminary Blood SPECIMEN COLLECTED 05/25/24 14:18 Blood Culture - Preliminary Blood SPECIMEN COLLECTED A&P Assessment and plan (1) Influenza A: Influenza A with new hypoxemia Start Tamiflu 75mg BID No evidence of consolidation on CXR scattered wheezing on exam scheduled nebulization with duoneb and budesonide iv steroids if no improvement (2) Hypertension: continue home meds Qualifiers: Hypertension type: primary hypertension Qualified Code(s): I10 - Essential (primary) hypertension (3) Anemia: on iron supplementation (4) GI bleed: patient noted to have bright red blood per rectum along with stools on having bowel movements here denies any abdominal pain She does not know if she was having bleeding at home or not as she had no power and was using a bedside commode shared with family Hb todat at 11.2, stable over previous Will check H&H every 8 hrs Patient has had colonoscopy in 2020 which had shown a sigmoid doverticulosis EGD showed hiatal hernia without any other abnormalities suspect diverticular bleeding as cause of bleeding currently. If continues to have bleeding, hemodynamic instability or falling hb, will plan for endoscopic evaluation Plan dvt ppx: Scd only, a/c contraindicated Full code PDMP PDMP Reviewed: Not Reviewed Attestations Medical Necessity Statement*: > 2 midnight stay anticipated for GI bleed, influenza infection Coding Level of Care Code Acute Code for [facility] Fwd Diagnoses Influenza A J10.1 Primary hypertension I10 Hypertension type: primary hypertension Anemia D64.9 GI bleed K92.2
[2024-05-25] MEDS: budesonide 0.5 mg/2 mL Neb INHALATION (19:52)
[2024-05-25 19:58] LABS: Troponin(5th) Baseline 27 ng/L (0-10)
[2024-05-25 20:07] LABS: D Dimer 1.71 ug/mLFEU (0-0.59)
[2024-05-25 20:15] LABS: Glucose Point of Care 425 mg/dL (70-110)
--- NOTE | 2024-05-25 20:25 | ECG_ITS ---
[facility] [employer] Test Date: 2024-05-25 Pat Name: Kathy Willoughby Department: Room: 275 Gender: Female Internet Cafe Manager: : 1950 Requested By: Sarah Clancy Order Number: [id number] Shukri MD: Kaylen Ku M.D. Measurements Intervals [place] Rate: 71 P: 96 HI: 192 QRS: -59 QRSD: 121 T: 59 QT: 393 QTc: 429 Interpretive Statements SINUS RHYTHM WITH FREQUENT SUPRAVENTRICULAR PREMATURE COMPLEXES LEFT ANTERIOR FASCICULAR BLOCK [QRS AXIS <= -45, QR IN I, RS IN II] MODERATE VOLTAGE CRITERIA FOR LVH, CONSIDER NORMAL VARIANT [MEETS CRITERIA IN ONE OF: R(aVL), S(V1), R(V5), R(V5/V6)+S(V1)] POSSIBLE ANTERIOR MYOCARDIAL INFARCTION , OF INDETERMINATE AGE [30 ms Q WAVE IN V3/V4, OR R < 0.2 mV IN V4] Compared to ECG 05/25/2024 12:36:16 No significant changes Electronically Signed On 05-25-2024 22:12:10 CDT by Kaylen Ku M.D. [email or web address] [id number]
[2024-05-25] MEDS: dexamethasone 4 mg/mL INJ 6 MG IVP (20:26)
[2024-05-25] MEDS: enoxaparin 40 mg/0.4 mL Syringe SUBCUT (20:26)
[2024-05-25] MEDS: gabapentin 300 mg Capsule PO (20:26)
[2024-05-25] MEDS: insulin lispro 100 unit/1 mL SUBCUT (20:27)
[2024-05-25 20:47] LABS: Troponin 5 2HR 25.29 ng/L (0-10)
[2024-05-25 20:48] LABS: Troponin 5 2HR Delta -1.71 ABS# (0-10)
[2024-05-25] MEDS: pantoprazole 40 mg SDV IVP (22:14)
[2024-05-26] VITALS (13 sets, daily range): BP systolic 114–150; BP diastolic 62–82; PULSE 60–77; RESP 16–20; TEMP 36.3–36.8; O2SAT 92–97
[2024-05-26] MEDS: ipratropium-albuterol 3 mL Neb INHALATION ×4 (00:39→19:41)
--- NOTE | 2024-05-26 00:40 | ECG_ITS ---
[facility] Test Date: 2024-05-26 Pat Name: Kathy Willoughby Department: Room: 275 Gender: Female Pet Counselor: : 1950 Requested By: Sarah Clancy Order Number: [id number] Shukri MD: Oscar Denson M.D. Measurements Intervals [place] Rate: 63 P: 85 MS: 185 QRS: -61 QRSD: 128 T: 31 QT: 430 QTc: 441 Interpretive Statements SINUS RHYTHM WITH OCCASIONAL SUPRAVENTRICULAR PREMATURE COMPLEXES LEFT ANTERIOR FASCICULAR BLOCK [QRS AXIS <= -45, QR IN I, RS IN II] POSSIBLE LEFT VENTRICULAR HYPERTROPHY [VOLTAGE CRITERIA PLUS LAE OR QRS WIDENING] POSSIBLE SEPTAL MYOCARDIAL INFARCTION , OF INDETERMINATE AGE [30 ms Q WAVE IN V1/V2] PROBABLE LATERAL MYOCARDIAL INFARCTION , OF INDETERMINATE AGE [35 ms Q WAVE IN I/aVL/V5/V6] Compared to ECG 05/25/2024 19:56:58 No significant changes Electronically Signed On 05-28-2024 07:49:23 CDT by Oscar Denson M.D. [id number] [id number]
[2024-05-26 00:43] LABS: Hematocrit 37.5 % (36-47); Lymphocytes # 0.5 10^3/uL (0.8-4.8); Lymphocytes % 14.4 %; Mean Corpuscular HGB Conc 32.8 g/dL (30-55); Mean Corpuscular Hemoglobin 29.3 pg (27-33); Mean Corpuscular Volume 89.3 fl (85-98); Mean Platelet Volume 10.3 fL (7.4-10.4); Monocytes # 0.1 10^3/uL (0.2-0.9); Monocytes % 2.8 %; Neutrophils # 2.64 10^3/uL (1.8-7.7); Neutrophils % 82.5 %; Nucleated Red Blood Cells % 0 %; Platelet Count 144 10^3/cmm (157-399); Red Cell Distribution Width 12.1 % (12.1-15.1)
[2024-05-26 01:04] LABS: Troponin 5 6HR 23.62 ng/L (0-10)
[2024-05-26 01:08] LABS: Alanine Aminotransferase 18 U/L (0-33); Albumin Level 3.6 g/dL (3.5-5.2); Alkaline Phosphatase 56 U/L (35-105); Anion Gap 16.2 (5-19); Aspartate Amino Transferase 25 U/L (0-32); Blood Urea Nitrogen 52 mg/dL (8-23); Calcium 8.2 mg/dL (8.5-10.5); Carbon Dioxide 24 mmol/L (22-29); Chloride 95 mmol/L (98-107); Creatinine Clr Calc Pharmacy 33.6686; Globulin 2.5 g/dL (1.3-4.6); Glucose 324 mg/dL (65-115); Osmolality Calculated 299 mOsm/kg (285-295); Potassium 4.2 mmol/L (3.5-5.1); Sodium 131 mmol/L (136-145); Total Bilirubin 0.2 mg/dL (0.15-1.2); Total Protein 6.1 g/dL (6.6-8.7)
[2024-05-26 01:12] LABS: Troponin 5 6HR Delta -3.38 ng/L (0-12)
[2024-05-26 06:17] LABS: Glucose Point of Care 259 mg/dL (70-110)
[2024-05-26] MEDS: budesonide 0.5 mg/2 mL Neb INHALATION ×2 (07:52→19:41)
[2024-05-26] MEDS: insulin lispro 100 unit/1 mL SUBCUT ×3 (08:54→21:16)
[2024-05-26] MEDS: amlodipine 5 mg Tablet PO (08:55)
[2024-05-26] MEDS: isosorbide mononitrate ER 30 mg Tablet 15 MG PO ×2 (08:55→18:10)
[2024-05-26] MEDS: FUROsemide 40 mg Tablet PO (08:55)
[2024-05-26] MEDS: gabapentin 300 mg Capsule PO ×3 (08:55→21:15)
[2024-05-26] MEDS: carvedilol 12.5 mg Tablet PO ×2 (08:55→18:10)
[2024-05-26] MEDS: ezetimibe 10 mg Tablet PO (08:57)
[2024-05-26 11:19] LABS: Glucose Point of Care 234 mg/dL (70-110)
[2024-05-26 16:40] LABS: Glucose Point of Care 106 mg/dL (70-110)
[2024-05-26 16:52] LABS: Hematocrit 34.7 % (36-47)
[2024-05-26] MEDS: pantoprazole DR 40 mg Tablet PO (18:10)
[2024-05-26] MEDS: oseltamivir phosphate 30 mg Capsule PO (18:13)
--- NOTE | 2024-05-26 18:33 | P.PN_ITS ---
Subjective 2 Subjective: 02 requirement stable today, wheezing be tter on auscultation. no further BM this morning Medications: Reviewed: Yes Vitals/I&O/Wt Last Vital Signs Temp 98.2 F 05/26/24 16:00 Pulse 61 05/26/24 16:00 Resp 20 H 05/26/24 16:00 BP 121/70 05/26/24 16:00 Pulse Ox 92 05/26/24 16:00 O2 Del Method Room Air 05/26/24 16:00 O2 Flow Rate 2 05/26/24 13:32 05/26/24 05/26/24 05/26/24 06:59 14:59 22:59 Intake Total 0 / 1480 480 / 480 Balance 0 / 1480 480 / 480 Weight last 48 hrs Weight 100.561 kg Weight 97.522 kg Weight 97.522 kg Physical Exam 2 Narrative: General: No acute distress, AO x3 HEENT: PERRLA, pupils bilaterally equal and reactive, pallors not present Chest: Normal vesicular breath sounds, no added sounds, equal good air entry bilaterally CVS: S1-S2 regular, no murmurs, no tachycardia, no gallops, no rubs Abdomen: Soft, nontender, no organomegaly, bowel sounds present Neuro: No focal deficits, no facial deformity, AO x3, power 5/5 in all limbs Data 05/26/24 16:42 05/26/24 00:32 Micro: Microbiology 05/25/24 14:24 Blood Culture - Preliminary Blood NEGATIVE TO DATE 05/25/24 14:18 Blood Culture - Preliminary Blood NEGATIVE TO DATE A&P Assessment and plan (1) Influenza A: Influenza A with new hypoxemia Start Tamiflu 75mg BID No evidence of consolidation on CXR scattered wheezing on exam scheduled nebulization with duoneb and budesonide iv steroids if no improvement (2) Hypertension: continue home meds Qualifiers: Hypertension type: primary hypertension Qualified Code(s): I10 - Essential (primary) hypertension (3) Anemia: on iron supplementation (4) GI bleed: patient noted to have bright red blood per rectum along with stools on having bowel movements here denies any abdominal pain She does not know if she was having bleeding at home or not as she had no power and was using a bedside commode shared with family Hb todat at 11.2, stable over previous Will check H&H every 8 hrs Patient has had colonoscopy in 2020 which had shown a sigmoid doverticulosis EGD showed hiatal hernia without any other abnormalities suspect diverticular bleeding as cause of bleeding currently. If continues to have bleeding, hemodynamic instability or falling hb, will plan for endoscopic evaluation Plan dvt ppx: Scd only, a/c contraindicated Full code 05/26/24: 02 requirements stable, wheezing better but persisting, continue scheduled nebs, iv dexamethasone 6mg x 1 iv, no further GI bleed today, check H&h this afternoon and then in am. This morning Hb at 12. No current indication for endoscopic procedure. Likely had diverticular bleed. PDMP PDMP Reviewed: Not Reviewed Attestations 2 Medical Necessity Statement*: monitor Hb closely, iv steroids today, continued nebs Coding Level of Care Code Acute Code for Chg Fwd Diagnoses Influenza A J10.1 Primary hypertension I10 Hypertension type: primary hypertension Anemia D64.9 GI bleed K92.2
[2024-05-26 20:43] LABS: Glucose Point of Care 232 mg/dL (70-110)
[2024-05-26] MEDS: dexamethasone 4 mg/mL INJ 6 MG IVP (21:16)
[2024-05-27] VITALS (13 sets, daily range): BP systolic 129–195; BP diastolic 64–74; PULSE 58–74; RESP 15–18; TEMP 36.4–37; O2SAT 88–97
[2024-05-27] MEDS: ipratropium-albuterol 3 mL Neb INHALATION ×2 (02:31→08:16)
[2024-05-27 05:53] LABS: Hematocrit 36.2 % (36-47); Lymphocytes # 0.7 10^3/uL (0.8-4.8); Mean Corpuscular HGB Conc 31.8 g/dL (30-55); Mean Corpuscular Hemoglobin 28.8 pg (27-33); Mean Corpuscular Volume 90.5 fl (85-98); Mean Platelet Volume 11.3 fL (7.4-10.4); Monocytes # 0.2 10^3/uL (0.2-0.9); Neutrophils # 3.87 10^3/uL (1.8-7.7); Neutrophils % 80.6 %; Nucleated Red Blood Cells % 0 %; Platelet Count 158 10^3/cmm (157-399); Red Cell Distribution Width 12.1 % (12.1-15.1)
[2024-05-27 06:14] LABS: Alanine Aminotransferase 16 U/L (0-33); Albumin Level 3.4 g/dL (3.5-5.2); Alkaline Phosphatase 48 U/L (35-105); Anion Gap 15.7 (5-19); Aspartate Amino Transferase 21 U/L (0-32); Blood Urea Nitrogen 39 mg/dL (8-23); Calcium 8.6 mg/dL (8.5-10.5); Carbon Dioxide 26 mmol/L (22-29); Chloride 95 mmol/L (98-107); Creatinine Clr Calc Pharmacy 41.3805; Globulin 2.8 g/dL (1.3-4.6); Glucose 234 mg/dL (65-115); Osmolality Calculated 291 mOsm/kg (285-295); Potassium 4.7 mmol/L (3.5-5.1); Sodium 132 mmol/L (136-145); Total Bilirubin 0.3 mg/dL (0.15-1.2); Total Protein 6.2 g/dL (6.6-8.7)
[2024-05-27 06:40] LABS: Glucose Point of Care 246 mg/dL (70-110)
[2024-05-27] MEDS: budesonide 0.5 mg/2 mL Neb INHALATION (08:16)
[2024-05-27] MEDS: gabapentin 300 mg Capsule PO (08:46)
[2024-05-27] MEDS: oseltamivir phosphate 30 mg Capsule PO (08:46)
[2024-05-27] MEDS: ferrous sulfate EC 325 mg Tablet PO (08:46)
[2024-05-27] MEDS: isosorbide mononitrate ER 30 mg Tablet 15 MG PO (08:46)
[2024-05-27] MEDS: pantoprazole DR 40 mg Tablet PO (08:46)
[2024-05-27] MEDS: FUROsemide 40 mg Tablet PO (08:46)
[2024-05-27] MEDS: ezetimibe 10 mg Tablet PO (08:46)
[2024-05-27] MEDS: carvedilol 12.5 mg Tablet PO (08:47)
[2024-05-27] MEDS: amlodipine 5 mg Tablet PO (08:47)
[2024-05-27] MEDS: insulin lispro 100 unit/1 mL SUBCUT ×2 (08:47→11:56)
[2024-05-27 10:52] LABS: Glucose Point of Care 308 mg/dL (70-110)
[2024-05-27] MEDS: losartan 50 mg Tablet PO (11:56)
--- NOTE | 2024-05-27 12:06 | PC.NURSE ---
Per Dr. Clancy, ONE time dose of IVP hydralazine not administered due to manual BP within normal range following administration of morning PO BP meds.
--- NOTE | 2024-05-27 14:55 | P.DS_ITS ---
Discharge Providers Date of Admission: 05/25/24 16:00 Date of Discharge: May 27, 2024 Attending Provider at Admission: Sarah Clancy MD Attending Provider at Discharge: Sarah Clancy MD Primary Care Provider: BERNARDINO Corbett Diagnoses at Discharge Discharge Diagnosis (1) Influenza A: Status: Acute (2) Hypertension: Status: Acute Qualifiers: Hypertension type: primary hypertension Qualified Code(s): I10 - Esse ntial (primary) hypertension (3) Anemia: Status: Chronic Permanent problem details: EGD findings showed hiatal hernia and colonoscopy showed diverticulosis (4) GI bleed: Status: Acute Reason for Visit Reason for Visit: General weakness Hospital Course Hospital Course Kathy Willoughby is a 74 year old female with PMH HTN who presented to the hospital with generalized weakness starting 4-5 days ago. States she has been having cough, weakness and fatigue. ROS + for chills, no fever measured at home. No LE swelling. She presented to ER with these complaints, noted she was short of breath with ADLs. Here she was found to be + influenza A. Since coming up to the floor, she has had one bloody BM with brought red blood. She estimates volume was about 1/2 cup. Has a past h/o GI bleed and anemai for which she is on iron supplementation. Parient was monitored with serail H&H for the GI bleed. This remained stable between 11-12. No further bleeding was encountered except day of admission. She had a previous colonoscopy with diverticulosis, suspect diverticular bleeding to have been the cause currently. For influenza infection, she received treatment with Tamiflu, scheduled nebulization and iv steroids. This has been transitioned to oral steroids for short course at time of discharge. Home oxygen evaluation was completed, she qualified for 2lpm with exertion. She is being discharged today in improved state. Physical Exam Narrative: General: No acute distress, AO x3 HEENT: PERRLA, pupils bilaterally equal and reactive, pallors not present Chest: Normal vesicular breath sounds, no added sounds, equal good air entry bi laterally CVS: S1-S2 regular, no murmurs, no tachycardia, no gallops, no rubs Abdomen: Soft, nontender, no organomegaly, bowel sounds present Neuro: No focal deficits, no facial deformity, AO x3, power 5/5 in all limbs Discharge Data Studies Completed and Pending Completed Studies During Hospitalization Category Date Time Status XR chest 1V portable [id number] Stat Exams 05/25/24 12:41 Completed Pending at discharge Category Date Time Status Blood Culture Stat Lab 05/25/24 14:24 Results Sputum Culture Routine Lab 05/25/24 21:30 Results Radiology Impressions Chest X-Ray 05/25/24 12:41 IMPRESSION: No acute findings. Laboratory Results WBC 4.80 10^3/uL (3.29-11.43) 05/27/24 04:48 RBC 4.00 10^6/uL (3.85-5.65) 05/27/24 04:48 Hgb 11.50 g/dL (11.27-16.99) 05/27/24 04:48 Hct 36.2 % (36-47) 05/27/24 04:48 MCV 90.5 fl (85-98) 05/27/24 04:48 MCH 28.8 pg (27-33) 05/27/24 04:48 MCHC 31.8 g/dL (30-55) 05/27/24 04:48 RDW 12.1 % (12.1-15.1) 05/27/24 04:48 Plt Count 158 10^3/cmm (157-399) 05/27/24 04:48 MPV 11.3 fL (7.4-10.4) H 05/27/24 04:48 Neut % (Auto) 80.6 % 05/27/24 04:48 Lymph % (Auto) 14.0 % 05/27/24 04:48 [place] % (Auto) 5.0 % 05/27/24 04:48 Eos % (Auto) 0.0 % 05/27/24 04:48 Baso % (Auto) 0.0 % 05/27/24 04:48 Neut # (Auto) 3.87 10^3/uL (1.8-7.7) 05/27/24 04:48 Lymph # (Auto) 0.7 10^3/uL (0.8-4.8) L 05/27/24 04:48 [place] # (Auto) 0.2 10^3/uL (0.2-0.9) 05/27/24 04:48 Eos # (Auto) 0.0 10^3/uL (0.0-0.8) 05/27/24 04:48 Baso # (Auto) 0.0 10^3/uL (0.0-0.1) 05/27/24 04:48 Nucleated RBC % (auto) 0 % 05/27/24 04:48 Nucleated RBCs # 0.0 /100WBC 05/27/24 04:48 D-Dimer 1.71 ug/mLFEU (0-0.59) H 05/25/24 19:24 Specimen Type Arterial 05/25/24 12:52 Sample Site Brachial, right 05/25/24 12:52 ABG pH 7.39 (7.35-7.45) 05/25/24 12:52 ABG pCO2 45.2 mmHg (35-45) H 05/25/24 12:52 ABG pO2 66.2 mmHg (80.0-100.0) L 05/25/24 12:52 ABG PO2/FiO2 Ratio 236 05/25/24 12:52 ABG HCO3 27.3 mmol/L (22-26) H 05/25/24 12:52 ABG O2 Saturation 92.9 05/25/24 12:52 ABG Base Excess 1.8 mmol/L (-2.0-2.0) 05/25/24 12:52 Soham Test N/a 05/25/24 12:52 A-a O2 Gradient 9.6 mmHg (5-10) 05/25/24 12:52 Hematocrit 37.4 % (37-47) 05/25/24 12:52 Hgb O2 Saturation 91.0 % (95-100) L 05/25/24 12:52 Carboxyhemoglobin 1.1 %THgb (0.4-20.1) 05/25/24 12:52 Methemoglobin 1.0 % (0.4-1.5) 05/25/24 12:52 Total Hemoglobin 12.2 g/dL (12-16) 05/25/24 12:52 Sodium 134.0 mmol/L (131-143) 05/25/24 12:52 Potassium 3.7 mmol/L (3.5-5.0) 05/25/24 12:52 Glucose 167.0 mg/dL (70-115) H 05/25/24 12:52 Ionized Calcium 1.1 mmol/L (1.1-1.4) 05/25/24 12:52 O2 Delivery Device Nc 05/25/24 12:52 O2 Liters/Min 2.0 % 05/25/24 12:52 FiO2 28.0 % 05/25/24 12:52 Haircutter ID Amh 05/25/24 12:52 Sodium 132 mmol/L (136-145) L 05/27/24 04:48 Potassium 4.7 mmol/L (3.5-5.1) 05/27/24 04:48 Chloride 95 mmol/L (98-107) L 05/27/24 04:48 Carbon Dioxide 26 mmol/L (22-29) 05/27/24 04:48 Anion Gap 15.7 (5-19) 05/27/24 04:48 BUN 39 mg/dL (8-23) H 05/27/24 04:48 Creatinine 1.4 mg/dL (0.5-0.9) H 05/27/24 04:48 GFR Calculation Not Reportable 05/27/24 04:48 Glucose 234 mg/dL (65-115) H 05/27/24 04:48 POC Glucose 308 mg/dL (70-110) H 05/27/24 10:46 Calculated Osmolality 291 mOsm/kg (285-295) 05/27/24 04:48 Lactic Acid 1.1 mmol/L (0.5-2.2) 05/25/24 13:02 Calcium 8.6 mg/dL (8.5-10.5) 05/27/24 04:48 Total Bilirubin 0.3 mg/dL (0.15-1.2) 05/27/24 04:48 AST 21 U/L (0-32) 05/27/24 04:48 ALT 16 U/L (0-33) 05/27/24 04:48 Alkaline Phosphatase 48 U/L (35-105) 05/27/24 04:48 Troponin T Baseline 27 ng/L (0-10) H 05/25/24 19:24 Troponin T 120 Minute 25.29 ng/L (0-10) H 05/25/24 20:18 Delta Troponin T -1.71 ABS# (0-10) L 05/25/24 20:18 Troponin T Hi Sens 6Hr 23.62 ng/L (0-10) H 05/26/24 00:32 Troponin T Hi Sens 6Hr Delta -3.38 ng/L (0-12) L 05/26/24 00:32 Total Protein 6.2 g/dL (6.6-8.7) L 05/27/24 04:48 Albumin 3.4 g/dL (3.5-5.2) L 05/27/24 04:48 Globulin 2.8 g/dL (1.3-4.6) 05/27/24 04:48 Urine Color Yellow (Yellow) 05/25/24 13:23 Urine Appearance Clear (CLEAR) 05/25/24 13:23 Urine pH 5.0 (5-7) 05/25/24 13:23 Ur Specific [place] 1.015 (1.005-1.030) 05/25/24 13:23 Urine Protein Trace (Negative) A 05/25/24 13:23 Urine Glucose (UA) Negative (Normal) 05/25/24 13:23 Urine Ketones Negative (Negative) 05/25/24 13:23 Urine Blood Negative (Negative) 05/25/24 13:23 Urine Nitrate Negative (Negative) 05/25/24 13:23 Urine Bilirubin Negative (Negative) 05/25/24 13:23 Urine Urobilinogen 1.0 mg/dL (Negative) 05/25/24 13:23 Ur Leukocyte Esterase Negative (Negative) 05/25/24 13:23 Urine RBC 0-2 /hpf (0-2) 05/25/24 13:23 Urine WBC 0-5 /hpf (0-5) 05/25/24 13:23 Ur Squamous Epith Cells 0-5 /hpf (0-5) 05/25/24 13:23 Amorphous Sediment Not Reportable 05/25/24 13:23 Urine Bacteria None seen /hpf (NONE) 05/25/24 13:23 Hyaline Casts 15.71 /lpf 05/25/24 13:23 Influenza A (PCR) Positive (Negative) 05/25/24 12:50 Influenza Type B (PCR) Negative (Negative) 05/25/24 12:50 RSV (PCR) Negative (Negative) 05/25/24 12:50 SARS-CoV-2 (PCR) Negative (Negative) 05/25/24 12:50 Vitals Last Vital Signs Temp 97.5 F L 05/27/24 11:14 Pulse 72 05/27/24 13:00 Resp 18 05/27/24 11:14 BP 150/70 05/27/24 13:00 Pulse Ox 96 05/27/24 13:00 O2 Del Method Nasal Cannula 05/27/24 11:14 O2 Flow Rate 2 05/27/24 11:15 Discharge Plan Discharge Patient Disposition: Home Condition: Stable Prescriptions: New oseltamivir [Tamiflu] 30 mg Capsule 30 mg PO BID 3 Days Qty: 6 0RF amoxicillin-pot clavulanate 875-125 mg tablet 1 tab PO BID 5 Days Qty: 10 0RF prednisone 20 mg tablet 20 mg PO BID 5 Days Qty: 10 0RF pantoprazole [Protonix] 40 mg tablet,delayed release (DR/EC) 40 mg PO DAILY 28 Days Qty: 30 0RF albuterol sulfate [Ventolin HFA] 90 mcg/actuation HFA aerosol inhaler 1 inh inhalation Q6H PRN (Reason: shortness of breath or wheezing) Qty: 8.5 0RF Continued gabapentin 300 mg capsule 300 mg PO TID metformin 500 mg tablet 500 mg PO BID ferrous sulfate 325 mg (65 mg iron) tablet 325 mg PO DAILY PRN (Reason: iron) Lantus Solostar U-100 Insulin 100 unit/mL (3 mL) insulin pen 30 unit SUBCUT DAILY Rx Instructions: 30 units valsartan 160 mg tablet 160 mg PO BID ezetimibe 10 mg tablet 10 mg PO DAILY isosorbide mononitrate 30 mg tablet extended release 24 hr 15 mg PO BID Qty: 90 3RF carvedilol 12.5 mg tablet 12.5 mg PO BID Qty: 180 3RF Rx Instructions: must administer with a meal/food furosemide 40 mg tablet 40 mg PO DAILY amlodipine 5 mg tablet 5 mg PO DAILY Discharge Orders: Discharge Order (Routine); Ordered 05/27/24 Ordered By: Sarah Clancy Other Ambulatory Orders: DME: Oxygen (Order) Location: None Selected Ordered By: Sarah Clancy Referrals: Debbie Burgos FNP [Primary Care Provider] - 06/02/24 1:30 pm (hospital discharge follow up ) Discharge Diet: Usual diet Discharge Activity: Resume usual activity Patient Instructions: Prednisone (By mouth), Amoxicillin/Clavulanate Potassium (By mouth), Oseltamivir (By mouth), Pantoprazole (By mouth), Influenza (DC), Using Oxygen at Home (DC), Hypoxia (GEN), Opioid Safety Discharge Attestations Time Spent in Discharge Care*: greater than 30 min Quality Metrics Clinical Quality Measures [ No reported AMI, CVA or VTE this stay] Coding Level of Care Code Acute Code for Chg Fwd Diagnoses Influenza A J10.1 Primary hypertension I10 Hypertension type: primary hypertension Anemia D64.9 GI bleed K92.2
== END 2024-05-27 13:01 | disposition home or self-care (01) ==
LOC: ER 15:36 → MEDSURG 16:00
PROVIDERS: Admitting Provider Student in an Organized Health Care Education/Training Program; Emergency Provider Family Medicine; PCP Nurse Practitioner Family; Visit Provider Student in an Organized Health Care Education/Training Program
DX: J10.1 Influenza due to other identified influenza virus with other respiratory manifestations (principal); I10 Essential (primary) hypertension; D64.9 Anemia, unspecified; K92.2 Gastrointestinal hemorrhage, unspecified; R53.1 Weakness; E13.43 Other specified diabetes mellitus with diabetic autonomic (poly)neuropathy; Z83.3 Family history of diabetes mellitus; Z87.19 Personal history of other diseases of the digestive system; K44.9 Diaphragmatic hernia without obstruction or gangrene; E78.5 Hyperlipidemia, unspecified
CPT/HCPCS: 36415; 36416; 36600; 71045; 80051; 80053; 81001; 82330; 82805; 82962; 83605; 84484; 85014; 85018; 85025; 85378; 87040; 87070; 87637; 93005; 94640; 94760; 96372; G0378; J1100; J1650; J1815; J2470; J2919; J7626; J9999

== ENCOUNTER → 2024-06-01 09:43 | Outpatient (BNVA) | payer MEDICARE, SELFPAY | PROVIDERS: PCP Nurse Practitioner Family; Visit Provider Internal Medicine Cardiovascular Disease | DX: R06.02 Shortness of breath (principal); I34.0 Nonrheumatic mitral (valve) insufficiency; I36.1 Nonrheumatic tricuspid (valve) insufficiency; I51.89 Other ill-defined heart diseases; I83.893 Varicose veins of bilateral lower extremities with other complications; I10 Essential (primary) hypertension | CPT/HCPCS: 36415; 83880; 99214 ==

== ENCOUNTER 2024-06-14 08:18 | Outpatient (CLI) | payer MEDICARE, SELFPAY ==
[2024-06-14 09:36] LABS: Anion Gap 13.8 (5-19); Blood Urea Nitrogen 43 mg/dL (8-23); Calcium 9.8 mg/dL (8.5-10.5); Carbon Dioxide 31 mmol/L (22-29); Chloride 100 mmol/L (98-107); Glucose 125 mg/dL (65-115); NT Pro B Type Natriuretic Pept 623 pg/mL (0-450); Osmolality Calculated 302 mOsm/kg (285-295); Potassium 4.8 mmol/L (3.5-5.1); Sodium 140 mmol/L (136-145)
== END 2024-06-14 08:19 | disposition home or self-care (01) ==
PROVIDERS: Internal Medicine Cardiovascular Disease; PCP Nurse Practitioner Family; Visit Provider Nurse Practitioner Family
DX: E87.70 Fluid overload, unspecified (principal); R07.89 Other chest pain
CPT/HCPCS: 36415; 80048; 83880

== ENCOUNTER → 2024-07-04 10:41 | Outpatient (BNVA) | payer MEDICARE, SELFPAY | PROVIDERS: PCP Nurse Practitioner Family; Visit Provider Podiatrist Foot & Ankle Surgery | DX: E11.42 Type 2 diabetes mellitus with diabetic polyneuropathy (principal); L60.8 Other nail disorders; L84 Corns and callosities; E11.8 Type 2 diabetes mellitus with unspecified complications; R60.9 Edema, unspecified; L60.3 Nail dystrophy; Z79.4 Long term (current) use of insulin; Z79.84 Long term (current) use of oral hypoglycemic drugs | CPT/HCPCS: 11055; 11721 ==

== ENCOUNTER 2024-09-13 08:38 | Outpatient (CLI) | payer MEDICARE, SELFPAY ==
[2024-09-13 09:25] LABS: Anion Gap 14.9 (5-19); Blood Urea Nitrogen 45 mg/dL (8-23); Calcium 9.5 mg/dL (8.5-10.5); Carbon Dioxide 31 mmol/L (22-29); Chloride 98 mmol/L (98-107); Glucose 126 mg/dL (65-115); Osmolality Calculated 301 mOsm/kg (285-295); Potassium 4.9 mmol/L (3.5-5.1); Sodium 139 mmol/L (136-145)
[2024-09-13 09:30] LABS: Estmated Average Glucose 131; Hemoglobin A1C 6.2 % (4.0-6.0)
== END 2024-09-13 08:39 | disposition home or self-care (01) ==
PROVIDERS: Internal Medicine Cardiovascular Disease; PCP Nurse Practitioner Family; Visit Provider Nurse Practitioner Family
DX: I12.9 Hypertensive chronic kidney disease with stage 1 through stage 4 chronic kidney disease, or unspecified chronic kidney disease (principal); N18.30 Chronic kidney disease, stage 3 unspecified; E11.22 Type 2 diabetes mellitus with diabetic chronic kidney disease; Z79.4 Long term (current) use of insulin
CPT/HCPCS: 36415; 80048; 83036

== ENCOUNTER 2024-11-14 08:45 | Outpatient (CLI) | payer MEDICARE, SELFPAY ==
[2024-11-14 10:01] LABS: Hematocrit 36.1 % (36-47); Hemoglobin 11.70 g/dL (11.27-16.99); Mean Corpuscular HGB Conc 32.4 g/dL (30-55); Mean Corpuscular Hemoglobin 29.9 pg (27-33); Mean Corpuscular Volume 92.3 fl (85-98); Nucleated Red Blood Cells % 0 %; Platelet Count 225 10^3/cmm (157-399); Red Blood Count 3.91 10^6/uL (3.85-5.65); White Blood Count 8.36 10^3/uL (3.29-11.43)
[2024-11-14 10:29] LABS: Albumin Level 4.0 g/dL (3.5-5.2); Anion Gap 15.4 (5-19); Blood Urea Nitrogen 43 mg/dL (8-23); Calcium 9.7 mg/dL (8.5-10.5); Calcium 9.8 mg/dL (8.5-10.5); Carbon Dioxide 28 mmol/L (22-29); Chloride 98 mmol/L (98-107); Glucose 110 mg/dL (65-115); Potassium 5.4 mmol/L (3.5-5.1); Sodium 136 mmol/L (136-145)
[2024-11-14 10:43] LABS: Creatinine Urine, Random 33 mg/dL (28-217)
[2024-11-14 10:51] LABS: Microalbum Creatinine Ratio Ur 61 mg/dL (0-20)
== END 2024-11-14 08:46 | disposition home or self-care (01) ==
PROVIDERS: PCP Nurse Practitioner Family; Visit Provider Registered Nurse
DX: N18.32 Chronic kidney disease, stage 3b (principal); E87.5 Hyperkalemia; E11.22 Type 2 diabetes mellitus with diabetic chronic kidney disease
CPT/HCPCS: 36415; 80069; 82044; 82310; 83970; 85025

== ENCOUNTER 2024-12-12 14:47 | Inpatient (IN) | payer MEDICARE, SELFPAY ==
[2024-12-12] VITALS (9 sets, daily range): BP systolic 103–144; BP diastolic 53–88; PULSE 62–73; RESP 16–18; TEMP 36.6–36.8; O2SAT 90–96; BMI 38.2
--- NOTE | 2024-12-12 13:34 | ECG_ITS ---
[facility] 2024[facility]12 Pat Name: Kathy Willoughby Department: Room: EDIP Gender: Female Practice Assistant: : 1950 Requested By: Estella Echevarria Order Number: [id number] Shukri MD: Kaylen Ku M.D. Measurements Intervals [place] Rate: 71 P: 28 MD: 252 QRS: -73 QRSD: 139 T: 20 QT: 443 QTc: 482 Interpretive Statements SINUS RHYTHM WITH FIRST DEGREE AV BLOCK INTRAVENTRICULAR CONDUCTION DELAY [130+ ms QRS DURATION] PROBABLE ANTEROLATERAL MYOCARDIAL INFARCTION , PROBABLY OLD [35 ms Q WAVE IN I/aVL/V3-V6] Compared to ECG 05/26/2024 00:40:45 First degree AV block now present Intraventricular conduction delay now present Left anterior fascicular block no longer present Myocardial infarct finding still present Electronically Signed On 12-12-2024 23:25:57 CDT by Kaylen Ku M.D. [email or web address]
--- NOTE | 2024-12-12 14:49 | XR_ITS ---
WS: [id number] Left ankle, 3 views, 12/12/2024 Clinical Data: trauma deformity Comparison: None. Findings: There are fractures of the distal left tibia and fibula with minimal displacement. 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 There is a plantar spur and an Achilles spur. There is vascular calcification. XR/XR ankle LT min 3V* [id number] Impression: Fractures of the distal left tibia and fibula.
--- OUTSIDE RECORDS SUMMARY | 2024-12-12 14:52 | XMS_ITS | Encounter Summary ---
Author Organization [facility] Address [address] [place] [address] Care Team Providers Care Hub Inventory Specialist Name Role Phone Debbie Burgos BERNARDINO Primary Care Provider [phone] Encounter Details Date Type Department Care Team (Late st Contact Info) Description 03/03/2019 Ancillary Orders [facility] [place] [address] [place] [id number] Lowell BurgosBERNARDINO wiley [address] [place] [phone] Chest pain, unspecified Social History Tobacco Use Types Packs/Day Years Used Date Smoking Tobacco: Never Assessed Comments Unknown Sex and Gender Information Value Date Recorded Sex Assigned at Not on file 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 Exam: XR CHEST PA AND LATERAL 2 VW Date/Time of Exam: 03/03/2019 12:17 PM Reason For Exam: See Diagnosis. Priors: None Findings: Cardiac silhouette is within normal limits. Chronic diffuse interstitial opacities without focal consolidation, pleural effusion or pneumothorax. No acute osseous abnormality. Narrative Procedure Note Laci Osorio, DO - 12/26/2019 IMPRESSION: See below. Exam: XR CHEST PA AND LATERAL 2 VW Date/Time of Exam: 03/03/2019 12:17 PM Reason For Exam: See Diagnosis. Priors: None Findings: Cardiac silhouette is within normal limits. Chronic diffuse interstitial opacities without focal consolidation, pleural effusion or pneumothorax. No acute osseous abnormality. [facility] DIAGNOSTIC IMAGING ORDERABLES nal Result documented in this encounter Visit Diagnoses Diagnosis Chest pain, unspecified Chest pain, unspecified documented in this encounter Care Teams Hub Inventory Specialist Relationship Specialty Start Date End Date Burgos, BERNARDINO Lewis [address] [place] [phone] PCP - General Nurse Practitioner Family 03/03/19 documented as of this encounter
--- OUTSIDE RECORDS SUMMARY | 2024-12-12 14:52 | XMS_ITS | Clinical Summary ---
Author Organization [place] Address [address] Hunt: Epic Prelude ADT BIANCA NERI [address] Care Team Providers Care Liner Man Name Role Phone Debbie Burgos BERNARDINO Primary Care Provider [phone] Allergies No known active allergies Medications carvediloL (COREG) 6.25 mg tablet Take 12.5 mg by mouth 2 times daily. Active ergocalciferol (VITAMIN D2) 50,000 unit capsule Take 50,000 Units by mouth. 4 Active ezetimibe (ZETIA) 10 mg tablet Take 10 mg by mouth daily. Active FeroSuL 325 mg (65 mg iron) tablet Take 325 mg by mouth daily. Active furosemide (LASIX) 40 mg tablet Take 1 Tablet by mouth daily. 5 Active gabapentin (NEURONTIN) 300 mg capsule Take 300 mg by mouth 3 times daily. Active insulin glargine (LANTUS) 100 unit/mL vial Inject 30 Units by subcutaneous injection daily at bedtime. Active Lantus Solostar U-100 Insulin 100 unit/mL (3 mL) solution for injection INJECT 15 UNITS UNDER SKIN TWICE DAILY 5 Active isosorbide dinitrate (ISORDIL) 30 mg Tablet TAKE ONE TABLET BY MOUTH TWICE DAILY, ALLOW NITRATE-FREE INTERVAL 12-14 HOURS PER 24 HOUR PERIOD 5 Active metFORMIN (GLUCOPHAGE) 500 mg tablet Take 500 mg by mouth 2 times daily. Active pantoprazole (PROTONIX) 40 mg Tablet, Delayed Release (E.C.) Take 1 Tablet by mouth daily. 5 Active valsartan (DIOVAN) 160 mg tablet Take 320 mg by mouth daily. Active Hospital, Clinic, or Other Facility Administered Medication Ordered Dose Route Frequency Start Date End Date Status bevacizumab (AVASTIN) 2.25 mg/0.09 mL intravitreal injection 1.25 mgIndications:Type 2 diabetes mellitus with both eyes affected by mild nonproliferative retinopathy and macular edema, with long-term current use of insulin 1.25 mg IZ ONE TIME ONLY 10/25/2024 Active lidocaine (XYLOCAINE) 4 % (40 mg/mL) mucosal solution 0.2 mLIndications:Type 2 diabetes mellitus with both eyes affected by mild nonproliferative retinopathy and macular edema, with long-term current use of insulin 0.2 mL See Instruct ONE TIME ONLY 10/25/2024 Active povidone-iodine in balanced salt solution 0.25% eye drop 2 DropIndications:Type 2 diabetes mellitus with both eyes affected by mild nonproliferative retinopathy and macular edema, with long-term current use of insulin 2 Drop Right Eye ONE TIME ONLY 10/25/2024 Active sod borate-boric vp-MoAs-xebki (COLLYRIUM) opthalmic solution 40 DropIndications:Type 2 diabetes mellitus with both eyes affected by mild nonproliferative retinopathy and macular edema, with long-term current use of insulin 40 Drop See Instruct ONE TIME ONLY 10/25/2024 Active tetracaine (AK-T-KATHY) 0.5 % ophthalmic solution 5 DropIndications:Type 2 diabetes mellitus with both eyes affected by mild nonproliferative retinopathy and macular edema, with long-term current use of insulin 5 Drop Right Eye ONE TIME ONLY 10/25/2024 Active povidone-iodine in balanced salt solution 0.25% eye drop 1 DropIndications:Type 2 diabetes mellitus with both eyes affected by mild nonproliferative retinopathy and macular edema, with long-term current use of insulin 1 Drop Right Eye ONE TIME ONLY 10/25/2024 Active bevacizumab (AVASTIN) 2.25 mg/0.09 mL intravitreal injection 1.25 mgIndications:Type 2 diabetes mellitus with both eyes affected by mild nonproliferative retinopathy and macular edema, with long-term current use of insulin 1.25 mg IZ ONE TIME ONLY 10/25/2024 Active lidocaine (XYLOCAINE) 4 % (40 mg/mL) mucosal solution 0.2 mLIndications:Type 2 diabetes mellitus with both eyes affected by mild nonproliferative retinopathy and macular edema, with long-term current use of insulin 0.2 mL See Instruct ONE TIME ONLY 10/25/2024 Active povidone-iodine in balanced salt solution 0.25% eye drop 2 DropIndications:Type 2 diabetes mellitus with both eyes affected by mild nonproliferative retinopathy and macular edema, with long-term current use of insulin 2 Drop Left Eye ONE TIME ONLY 10/25/2024 Active sod borate-boric rz-GhQx-bhbsq (COLLYRIUM) opthalmic solution 40 DropIndications:Type 2 diabetes mellitus with both eyes affected by mild nonproliferative retinopathy and macular edema, with long-term current use of insulin 40 Drop See Instruct ONE TIME ONLY 10/25/2024 Active tetracaine (AK-T-KATHY) 0.5 % ophthalmic solution 5 DropIndications:Type 2 diabetes mellitus with both eyes affected by mild nonproliferative retinopathy and macular edema, with long-term current use of insulin 5 Drop Left Eye ONE TIME ONLY 10/25/2024 Active povidone-iodine in balanced salt solution 0.25% eye drop 1 DropIndications:Type 2 diabetes mellitus with both eyes affected by mild nonproliferative retinopathy and macular edema, with long-term current use of insulin 1 Drop Left Eye ONE TIME ONLY 10/25/2024 Active proparacaine (OPTHAINE) 0.5 % ophthalmic solution 5 DropIndications:Type 2 diabetes mellitus with both eyes affected by mild nonproliferative retinopathy and macular edema, with long-term current use of insulin 5 Drop Left Eye ONE TIME ONLY 10/25/2024 Active fluorescein (AK-KAVON, FLUORESCITE) 500 mg/5 mL (10 %) injection 1 mLIndications:Backgro und diabetic macular edema (DME) 1 mL IV ONE TIME ONLY 10/25/2024 Active sodium chloride 0.9% vial - DILUENTIndications:Ba ckground diabetic macular edema (DME) 3 mL IV ONE TIME ONLY 10/25/2024 Ac tive Active Problems Problem Noted Date Diagnosed Date Chronic open angle glaucoma of both eyes, modera te stage 10/25/2024 Epiretinal membrane (ERM) of both eyes Type 2 diabetes mellitus wit h both eyes affected by mild nonproliferative retinopathy and macular edema, with long-term current use of insulin 10/25/2024 Pseudophakia, both eyes 10/25/2024 Dry eyes, bilateral 10/25/2024 Early dry stage nonexudative age-related macular degeneration of both eyes 10/25/2024 Encounters Date Type Department Care Team Description 11/29/2024 External Device Data [facility] ABSTRACTION Provider, Abstract 11/02/2024 External Device Data [facility] ABSTRACTION Provider, Abstract 11/01/2024 External Device Data [facility] ABSTRACTION Provider, Abstract 11/01/2024 External Device Data [facility] ABSTRACTION Provider, Abstract 10/25/2024 1:40 PM CDT Office Visit [facility] [place] [address] [facility] [address] [place] [address] Dafne Carter MD Type 2 diabetes mellitus with both eyes affected by mild nonproliferative retinopathy and macular edema, with long-term current use of insulin (CMS/HCC) (Primary Dx); Chronic open angle glaucoma of both eyes, moderate stage; Epiretinal membrane (ERM) of both eyes; Pseudophakia, both eyes; Dry eyes, bilateral; Early dry stage nonexudative age-related macular degeneration of both eyes from Last 3 Months Social History Tobacco Use Types Packs/Day Years Used Date Smoking Tobacco: Never Tobacco Cessation:Counseling Given: Not Answered Alcohol Use Standard Drinks/Week Comments Not Currently 0 (1 standard drink = 0.6 oz pur e alcohol) Comments Unknown Sex and Gender Information Value Date Recorded Sex Assigned at Not on file 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 Gender Identity Not on file Sexual Orientation Not on file Plan of Treatment Health Maintenance Due Date Last Done Comments DIABETES ANNUAL FOOT EXAM 1967 DIABETES HBA1C Q 6 MONTHS 1967 DIABETES MICROALBUMIN ANNUAL SCREEN 1967 LDL CHOLESTEROL ANNUAL 1967 DTAP/TDAP/TD VACCINES (1 - Tdap) 01/06/1968 PNEUMOCOCCAL VACCINE 50+ YEA RS (1 of 2 - PCV) 01/06/1968 COLORECTAL SCREENING 1994 Colorectal Cancer Screening 1994 FIT-DNA Q 3 years 1994 FIT/FOBT Q 1 year 1994 Flex Sig/CT Colonography Q 5 years 1994 ZOSTER VACCINE (1 of 2) 1999 OSTEOPOROSIS SCREENING 2014 RSV VACCINE (60+ or ) (1 - 1-dose 75+ series) 01/06/2024 INFLUENZA VACCINE (#1) 2024 COVID-19 Vaccine ( - 2024-2 6 season) 2024 01/25/2021, 06/01/2020, 05/04/2020 DIABETES ANNUAL RETINAL EXAM 10/25/2025, 10/25/2024, 10/25/2024, Additional history exists Procedures Procedure Name Priority Date/Time Associated Diagnosis Comments FUNDUS PHOTOS - OU - BOTH EYES Routine 10/26/2024 8:50 AM CDT Type 2 diabetes mellitus with both eyes affected by mild nonproliferative retinopathy and macular edema, with long-term current use of insulin (CMS/HCC) Epiretinal membrane (ERM) of both eyes EYE DROPS Routine 10/25/2024 3:12 PM CDT Type 2 diabetes mellitus with both eyes affected by mild nonproliferative retinopathy and macular edema, with long-term current use of insulin ([facility]) OCT, RETINA - OU - BOTH EYES Routine 10/25/2024 2:31 PM CDT Type 2 diabetes mellitus with both eyes affected by mild nonproliferative retinopathy and macular edema, with long-term current use of insulin ([facility]) from Last 3 Months Results * FUNDUS PHOTOS - OU - BOTH EYES (10/26/2024 8:50 AM CDT) Narrative [facility] - 10/26/2024 8:50 AM CDT Fundus Photo Indication for procedure: To evaluate and document fundus findings. Findings: Findings consistent with clinical findings, both eyes. Impression: Right eye: background diabetic retinopathy Left eye: background diabetic retinopathy, diabetic macular edema us X Tana Carter MD OPHTH PHOTOGRAPHY Final Result [facility] * EYE DROPS (10/25/2024 3:12 PM CDT) Narrative [facility] - 10/25/2024 3:12 PM CDT Medications Eye Drops: 1 Drop proparacaine (OPHTHAINE) 0.5% ophthalmic solution Route: Right Eye NDC: 02047-320-23, Lot: [id number], Expiration date: 04/09/2026 5 Drop proparacaine (OPHTHAINE) 0.5% ophthalmic solution Route: Right Eye NDC: 69364-912-31, Lot: [id number], Expiration date: 05/06/2026 1 Drop proparacaine (OPHTHAINE) 0.5% ophthalmic solution Route: Left Eye NDC: 34384-618-07, Lot: [id number], Expiration date: 04/09/2026 1 Drop phenylephrine 2.5 % Route: Topical, Site: Eye, Bilateral NDC: 23945-485-72, Lot: [id number], Expiration date: 03/09/2026 1 Drop tropicamide 1 % Route: Topical, Site: Eye, Bilateral NDC: 87553-386-09, Lot: [id number], Expiration date: 10/07/2025 Notes Eye drop orders per protocol for Basic Automatic Quilling Machine Operator Eye Exam (Dilated) 1 Drop proparacaine (OPHTHAINE) 0.5% ophthalmic solution prior to tonometry 1 Drop tropicamide (MYDRIACYL) 1% ophthalmic solution 1 Drop phenylephrine (AK-DILATE, MYDFRIN) 2.5% ophthalmic solution us X Tana Carter MD OPH CLINIC PROCEDURES Final R esult [facility] [id number] [address] [address] * OCT, RETINA - OU - BOTH EYES (10/25/2024 2:31 PM CDT) Narrative [facility] - 10/26/2024 8:49 AM CDT Optical Coherent Topography Report Indication: To evaluate the macula. Right Eye: There is no macular edema or subretinal fluid. Minimal Epiretinal membrane. Overall thinning Left Eye: There is macular edema but no subretinal fluid. Central thinning. Epiretinal membrane us X Tana Carter MD OPHTH TOMOGRAPHY Final Result [facility] from Last 3 Months Insurance [facility] [id number] Care Teams Liner Man Relationship Specialty Start Date End Date Debbie Burgos FNP [address] [place] [address] PCP - General Nurse Practitioner Family 03/03/19
--- OUTSIDE RECORDS SUMMARY | 2024-12-12 14:53 | XMS_ITS | Clinical Summary ---
Author Organization [facility] Address 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 Gender Identity Not on file Sexual Orientation Not on file Plan of Treatment Health Maintenance Due Date Last Done Comments DTAP/TDAP/TD VACCINES (1 - Tdap) 01/06/1968 COLORECTAL SCREENING 1994 Colorectal Cancer Screening 1994 FIT-DNA Q 3 years 1994 FIT/FOBT Q 1 year 1994 Flex Sig/CT Colonography Q 5 years 1994 PNEUMOCOCCAL VACCINE 50+ YEARS (1 of 1 - PCV) 01/05/19 99 ZOSTER VACCINE (1 of 2) 1999 OSTEOPOROSIS SCREENING 2014 RSV VACCINE (60+ or ) (1 - 1-dose 75+ series) 01/06/2024 INFLUENZA VACCINE (#1) 2024 Insurance [facility] DUAL COMPLETE MCR PPO D-SNP Care Teams Environmental Sustainability Manager Relationship Specialty Start Date End Date Debbie Burgos FNP [address] [place] [address] PCP - General Nurse Practitioner Family 03/03/19
--- NOTE | 2024-12-12 15:17 | W.ED.EXTPRO ---
HPI - Extremity Problem General: Chief complaint: Extremity Injury, Lower Stated complaint: fall - left ankle deformity Time Seen by Provider: 12/12/24 14:47 History of Present Illness: 74-year-old female with a history of morbid obesity, diabetes, diverticulosis, diabetic neuropathy, hiatal hernia, hyperlipidemia, hypertension, anemia and lower extremity edema who presents emergency room by ambulance from home with a left ankle deformity after her foot went through the floor of her home. She has some abrasions on her thigh where it hit the diamond. No other injuries. She is neurovascularly intact. No chest pain. No abdominal pain. No head injury. No altered mental status. No focal motor deficits. Related Data Home Medications ?Medication ?Instructions ?Recorded ?Confirmed gabapentin 300 mg capsule 300 mg PO TID 03/14/19 07/04/24 metformin 500 mg tablet 500 mg PO BID 03/14/19 07/04/24 ferrous sulfate 325 mg (65 mg 325 mg PO DAILY PRN iron 02/04/21 07/04/24 iron) tablet valsartan 160 mg tablet 160 mg PO BID 02/19/21 07/04/24 insulin glargine 100 unit/mL (3 30 unit SUBCUT DAILY 08/06/21 07/04/24 mL) subcutaneous pen (Lantus Solostar U-100 Insulin) ezetimibe 10 mg tablet 10 mg PO DAILY 02/07/22 07/04/24 amlodipine 5 mg tablet 5 mg PO DAILY 05/25/24 07/04/24 furosemide 40 mg tablet 40 mg PO DAILY 05/25/24 07/04/24 Previous Rx's ?Medication ?Instructions ?Recorded carvedilol 12.5 mg tablet 12.5 mg PO BID #180 tabs 02/12/21 albuterol sulfate 90 mcg/actuation 1 inh inhalation Q6H PRN shortness 05/27/24 aerosol inhaler (Ventolin HFA) of breath or wheezing #8.5 grams furosemide 40 mg tablet 40 mg PO BID 7 days #14 tabs 06/03/24 potassium chloride 20 mEq 20 meq PO DAILY #7 tabs 06/03/24 tablet,extended release (K-Tab) isosorbide dinitrate 30 mg tablet See Rx Instructions .Route 11/14/24 .COMPLEX #180 tabs Allergies Allergy/AdvReac Type Severity Reaction Status Date / Time cimetidine (From GetPromotd) Allergy Severe Suicidal Verified 07/04/24 07:37 levofloxacin (From Levaquin) AdvReac Mild Unknown Verified 07/04/24 07:37 Review of Systems Narrative: Constitutional symptoms: Negative except as documented in HPI. Skin symptoms: Negative except as documented in HPI. Eye symptoms: Negative except as documented in HPI. ENMT symptoms: Negative except as documented in HPI. Respiratory symptoms: Negative except as documented in HPI. Cardiovascular symptoms: Negative except as documented in HPI. Gastrointestinal symptoms: Negative except as documented in HPI. Genitourinary symptoms: Negative except as documented in HPI. Musculoskeletal symptoms: Negative except as documented in HPI. Neurologic symptoms: Negative except as documented in HPI. Psychiatric symptoms: Negative except as documented in HPI. Endocrine symptoms: Negative except as documented in HPI. PFSH ED PFSH: Medical History (Updated 12/12/24 @ 16:40 by Estella Scott MD) Diabetes Epigastric pain Diverticulitis Callus of foot Onychomycosis Diabetic autonomic neuropathy Posterior tibial tendon dysfunction (PTTD) of left lower extremity Hiatal hernia Hyperlipidemia Hypertension Varicose veins of bilateral lower extremities with other complications Lower extremity edema Diastolic dysfunction Tricuspid valve regurgitation Mitral valve regurgitation Anemia EGD findings showed hiatal hernia and colonoscopy showed diverticulosis Surgical History S/P skin and subcutaneous tissue surgery Family History Father No problems noted. Mother Diabetes Chronic kidney disease (CKD) Hypertension Hyperlipidemia Sister Diabetes Stroke Hyperlipidemia Breast cancer Grandfather CAD (coronary artery disease) Lung disease Hypertension Grandmother Stroke Hypertension Denies family history of Clotting disorder Dementia Suicide Anesthesia complication Bleeding disorder Social History Smoking and tobacco/nicotine status: never used tobacco/nicotine Second hand smoke exposure: No Alcohol intake: never Substance/Drug Use: never Adopted: No Caregiver/support person: Yes Lives independently: Yes Household members: spouse Housing: House Marital status: Number of children: 2 Number of grandchildren: 3 Highest education level completed: High School Graduate service: No Current occupational status: retired Current occupational exposures/hazards: No Pets and animals: Yes Sexually active: No Do you think of yourself as: Straight/Heterosexual Current gender identity: Female Nilam/Baptism: [employer] [place] Special nilam needs: No Agree to transfusion: Yes Female Reproductive History: Para: 1 Spontaneous abortions: Yes Date of menopause: 03/09/79 Physical Exam Narrative: EXAM NARRATIVE: General: Alert, no acute distress. Skin: Warm, dry. Head: Normocephalic, atraumatic. Neck: Supple, trachea midline. Eye: Extraocular movements are intact. Ears, nose, mouth and throat: mucosa moist. Cardiovascular: Regular, Normal peripheral perfusion. Respiratory: Lungs are clear to auscultation, respirations are non-labored, breath sounds are equal, Symmetrical chest wall expansion. Gastrointestinal: Soft, Nontender, Non distended Musculoskeletal: Left ankle deformity with some bruising medially. Patient is neurovascularly intact. Neurological: Alert and oriented, No focal neurological deficit observed. Psychiatric: Cooperative, appropriate mood & affect. Course Vital Signs: Vital signs: Vital Signs Temperature 98.3 F 12/12/24 14:54 Pulse Rate 65 12/12/24 14:54 Respiratory Rate 16 12/12/24 14:54 Blood Pressure 131/75 12/12/24 14:54 Pulse Oximetry 95 12/12/24 14:54 Oxygen Delivery Me thod Nasal Cannula 12/12/24 14:54 Oxygen Flow Rate 2 12/12/24 14:54 MDM - Extremity (Nontraumatic) Medical Decision Making Medical decision making: Differential diagnosis including but not limited to and based on the above HPI, review of systems and physical exam: In this patient with a musculoskeletal extremity traumatic injury and x-ray is being ordered to rule out fractures and dislocations. Orders placed to evaluate differential diagnosis based on the above differential, HPI and physical exam X-ray of the right ankle: Fractures of the distal left tibia and fibula. This was reviewed and interpreted by myself the emergency room physician. I also reviewed the radiology report. CT of the left ankle: Severely comminuted mildly displaced fractures of the distal fibula and tibia. This was reviewed and interpreted by myself the emergency room physician. I also reviewed the radiology report. Chest x-ray: No acute process. No infiltrate. No pneumothorax. This was reviewed and interpreted by myself the emergency room physician. I also reviewed the radiology report. Lab review: Mild leukocytosis. No anemia. Renal function pending at admission. I reviewed the patient's medical record. 74-year-old female with a history of morbid obesity, diabetes, diverticulosis, diabetic neuropathy, hiatal hernia, hyperlipidemia, hypertension, anemia and lower extremity edema Reexamination: Patient remained stable. No increased work of breathing. No altered mental status. No focal motor deficits. Splint placed by nursing. Neurovascularly intact. Consultation: I spoke with Dr. Gaitan. He initially recommended a CT scan. After the CT scan he is going to put in an Ex-Fix and tomorrow at lunch and then do a definitive operation in a couple of weeks. He does agree with admission to hospitalist and he will consult. Patient likely will need jail/rehabilitation Consultation: I spoke with Dr. Haro who is on-call for the hospital service who agrees to admission. Splint was placed by myself and nursing personally. Reduced ankle slightly and placed a posterior with stirrups. She is neurovascularly intact afterwards. Pain is improved somewhat. Assessment and plan: Ankle fracture Obesity Diabetes ?Lily Abbott, splint placement -I discussed the patient with the hospitalist on-call who is admitting the patient. - Discussed findings and plan with patient. Answered any questions. - All laboratory values were reviewed and interpreted personally by myself, the ER physician - All imaging was reviewed and interpreted personally by myself, the ER physician. - Evaluation and treatment of this problem were appropriate in the emergency setting Lab Data 12/12/24 16:20 12/12/24 16:20 Radiology Impressions Ankle X-Ray 12/12/24 14:49 Impression: Fractures of the distal left tibia and fibula. Ankle CT 12/12/24 15:32 IMPRESSION: Severely comminuted, mildly displaced fractures of the distal tibia and fibula as detailed above Chest X-Ray 12/12/24 16:13 IMPRESSION: No acute findings. Laboratory Results WBC 12.58 10^3/uL (3.29-11.43) H 12/12/24 16:20 RBC 3.73 10^6/uL (3.85-5.65) L 12/12/24 16:20 Hgb 10.90 g/dL (11.27-16.99) L 12/12/24 16:20 Hct 34.1 % (36-47) L 12/12/24 16:20 MCV 91.4 fl (85-98) 12/12/24 16:20 MCH 29.2 pg (27-33) 12/12/24 16:20 MCHC 32.0 g/dL (30-55) 12/12/24 16:20 RDW 12.1 % (12.1-15.1) 12/12/24 16:20 Plt Count 233 10^3/cmm (157-399) 12/12/24 16:20 MPV 9.6 fL (7.4-10.4) 12/12/24 16:20 Neut % (Auto) 81.7 % 12/12/24 16:20 Lymph % (Auto) 10.2 % 12/12/24 16:20 [place] % (Auto) 5.8 % 12/12/24 16:20 Eos % (Auto) 1.6 % 12/12/24 16:20 Baso % (Auto) 0.3 % 12/12/24 16:20 Neut # (Auto) 10.28 10^3/uL (1.8-7.7) H 12/12/24 16:20 Lymph # (Auto) 1.3 10^3/uL (0.8-4.8) 12/12/24 16:20 [place] # (Auto) 0.7 10^3/uL (0.2-0.9) 12/12/24 16:20 Eos # (Auto) 0.2 10^3/uL (0.0-0.8) 12/12/24 16:20 Baso # (Auto) 0.0 10^3/uL (0.0-0.1) 12/12/24 16:20 Nucleated RBC % (auto) 0 % 12/12/24 16:20 Nucleated RBCs # 0.0 /100WBC 12/12/24 16:20 PT 12.40 SECONDS (12.1-14.9) 12/12/24 16:20 INR 0.87 (0.8-1.2) 12/12/24 16:20 APTT 25.1 SECONDS (23.9-36.7) 12/12/24 16:20 Sodium 138 mmol/L (136-145) 12/12/24 16:20 Potassium 4.8 mmol/L (3.5-5.1) 12/12/24 16:20 Chloride 96 mmol/L (98-107) L 12/12/24 16:20 Albumin 4.2 g/dL (3.5-5.2) 12/12/24 16:20 All radiology interpretation(s) finalized by discharge Discharge Plan Discharge Patient Disposition: Admitted As Inpatient Admit Provider: Uli Haro Clinical Impression: Ankle fracture, Morbid obesity, Diabetes Condition: Stable Coding Level of Care Code ED Statistical Reporting Analyst for Ming Holloway
--- NOTE | 2024-12-12 15:32 | CTR_ITS ---
PROCEDURE INFORMATION: Exam: CT Left Lower Extremity Without Contrast, Ankle Exam date and time: 12/12/2024 3:41 PM Age: 74 years old Clinical indication: Injury or trauma; Fall; Injury date: 12/12/2022; Injury details: PT fell through floor while doing laundry; PT presents with left ankle pain. Patient states she fell through floor in house. Patient had obvious deformity per EMS and splinted. XR done prior to CT; Additional info: FX. Podiatry recs TECHNIQUE: Imaging protocol: CT of the left lower extremity without contrast was performed. Exam focused on the ankle. Radiation optimization: All CT scans at this facility use at least one of these dose optimization techniques: automated exposure control; mA and/or kV adjustment per patient size (includes targeted exams where dose is matched to clinical indication); or iterative reconstruction. COMPARISON: CR XR ankle LT min 3V* [id number] 12/12/2024 2:51 PM RADIATION DOSE METRICS: Total DLP (mGy-cm): 140.66 FINDINGS: Bones/joints: The bony structures demonstrate diffuse osteopenia. Severely comminuted fractures involve the distal portion of the tibia and fibula. The tibial fractures involve the plafond and enter the tibiotalar joint space. A dominant fracture line extends through the medial malleolus. There is mild displacement of the fracture fragments. A large fracture fragment involving the posterior malleolus is displaced posteriorly. In general, the distal tibia is shifted anteriorly with respect to the talus. Severely comminuted fractures also involve the lateral malleolus with mild displacement. No other acute fracture is noted. Arthritic change involves the midfoot joints and calcaneus. Soft tissues: Normal. CT/CT ankle LT wo con* [id number] IMPRESSION: Severely comminuted, mildly displaced fractures of the distal tibia and fibula as detailed above
--- NOTE | 2024-12-12 16:13 | XRR_ITS ---
PROCEDURE INFORMATION: Exam: XR Chest Exam date and time: 12/12/2024 4:34 PM Age: 74 years old Clinical indication: Pre-operative exam; Cardiovascular screening and respiratory screening exam; Additional info: Presurgical TECHNIQUE: Imaging protocol: Radiologic exam of the chest. Views: 1 view. COMPARISON: CR XR chest 1V portable [id number] 05/25/2024 12:46 PM FINDINGS: Lungs: Unremarkable. No consolidation or mass. Pleural spaces: Unremarkable. No pleural effusion. No pneumothorax. Heart/Mediastinum: Unremarkable. No cardiomegaly. Bones/joints: Unremarkable. XR/XR chest 1V portable [id number] IMPRESSION: No acute findings.
[2024-12-12 16:34] LABS: Hematocrit 34.1 % (36-47); Hemoglobin 10.90 g/dL (11.27-16.99); Mean Corpuscular HGB Conc 32.0 g/dL (30-55); Mean Corpuscular Hemoglobin 29.2 pg (27-33); Mean Corpuscular Volume 91.4 fl (85-98); Nucleated Red Blood Cells % 0 %; Platelet Count 233 10^3/cmm (157-399); Red Blood Count 3.73 10^6/uL (3.85-5.65); White Blood Count 12.58 10^3/uL (3.29-11.43)
--- NOTE | 2024-12-12 16:39 | PM.CONSULT ---
Providers/Reason For Consult Consulting Physician/Specialty*: Dr. Scooter Gaitan, D.P.M./podiatry Reason for Consult*: Left ankle fracture Attending Physician: Uli Haro MD Primary Care Provider: BERNARDINO Corbett History of Present Illness History of Present Illness Kathy Willoughby is a 74 year old female past medical history significant for diabetes diabetic neuropathy who presented to the emergency department earlier today 12/12/2024 via EMS from home after sustaining a left ankle injury. Patient states that her foot went through the floor of her home. Patient noticed immediate pain and deformity of left lower extremity. Splint was placed in the field by EMS before being brought to emergency department for further evaluation. Podiatry was consulted to evaluate and treat. Review of Systems General: Reports: 10 or more systems reviewed and unremarkable except in HPI and below Const: Denies: fever(s), chills or fatigue Eyes: Denies: change in vision ENMT: Denies: sinus pain Card: Denies: chest pain, palpitations or lightheadedness Resp: Denies: dyspnea GI: Denies: abdominal pain, nausea or vomiting Musc: Reports: extremity pain, extremity swelling and limited range of motion; Denies: neck pain or back pain Skin/Breast: Reports: skin swelling Neuro: Denies: numbness in extremities Medications/Allergies Home Medications ?Medication ?Instructions ?Recorded ?Confirmed ?Last Taken ?Type gabapentin 300 mg capsule 300 mg PO TID 03/14/19 07/04/24 04/05/19 History metformin 500 mg tablet 500 mg PO BID 03/14/19 07/04/24 04/05/19 History ferrous sulfate 325 mg (65 mg 325 mg PO DAILY PRN iron 02/04/21 07/04/24 Unknown History iron) tablet carvedilol 12.5 mg tablet 12.5 mg PO BID #180 tabs 02/12/21 07/04/24 Unknown Rx valsartan 160 mg tablet 160 mg PO BID 02/19/21 07/04/24 Unknown History insulin glargine 100 unit/mL (3 30 unit SUBCUT DAILY 08/06/21 07/04/24 Unknown History mL) subcutaneous pen (Lantus Solostar U-100 Insulin) ezetimibe 10 mg tablet 10 mg PO DAILY 02/07/22 07/04/24 Unknown History amlodipine 5 mg tablet 5 mg PO DAILY 05/25/24 07/04/24 Unknown History furosemide 40 mg tablet 40 mg PO DAILY 05/25/24 07/04/24 Unknown History albuterol sulfate 90 mcg/actuation 1 inh inhalation Q6H PRN shortness 05/27/24 07/04/24 Unknown Rx aerosol inhaler (Ventolin HFA) of breath or wheezing #8.5 grams furosemide 40 mg tablet 40 mg PO BID 7 days #14 tabs 06/03/24 07/04/24 Unknown Rx potassium chloride 20 mEq 20 meq PO DAILY #7 tabs 06/03/24 07/04/24 Unknown Rx tablet,extended release (K-Tab) isosorbide dinitrate 30 mg tablet See Rx Instructions .Route 11/14/24 Unknown Rx .COMPLEX #180 tabs Allergies Allergy/AdvReac Type Severity Reaction Status Date / Time cimetidine (From Tagamet) Allergy Severe Suicidal Verified 07/04/24 07:37 levofloxacin (From Levaquin) AdvReac Mild Unknown Verified 07/04/24 07:37 PFSH Acute PFSH: Medical History (Updated 12/12/24 @ 18:50 by Scooter Gaitan DPM) Diabetes Epigastric pain Diverticulitis Callus of foot Onychomycosis Diabetic autonomic neuropathy Posterior tibial tendon dysfunction (PTTD) of left lower extremity Hiatal hernia Hyperlipidemia Hypertension Varicose veins of bilateral lower extremities with other complications Lower extremity edema Diastolic dysfunction Tricuspid valve regurgitation Mitral valve regurgitation Anemia EGD findings showed hiatal hernia and colonoscopy showed diverticulosis Surgical History S/P skin and subcutaneous tissue surgery Family History Father No problems noted. Mother Diabetes Chronic kidney disease (CKD) Hypertension Hyperlipidemia Sister Diabetes Stroke Hyperlipidemia Breast cancer Grandfather CAD (coronary artery disease) Lung disease Hypertension Grandmother Stroke Hypertension Denies family history of Clotting disorder Dementia Suicide Anesthesia complication Bleeding disorder Social History Smoking and tobacco/nicotine status: never used tobacco/nicotine Second hand smoke exposure: No Alcohol intake: never Substance/Drug Use: never Adopted: No Caregiver/support person: Yes Lives independently: Yes Household members: spouse Housing: House Marital status: Number of children: 2 Number of grandchildren: 3 Highest education level completed: High School Graduate service: No Current occupational status: retired Current occupational exposures/hazards: No Pets and animals: Yes Sexually active: No Do you think of yourself as: Straight/Heterosexual Current gender identity: Female Nilam/Restoration: [employer] Special nilam needs: No Agree to transfusion: Yes Female Reproductive History: Para: 1 Spontaneous abortions: Yes Date of menopause: 03/09/79 Vitals/I&O/Wt Last Vital Signs Temp 98.3 F 12/12/24 14:54 Pulse 65 12/12/24 14:54 Resp 16 12/12/24 14:54 BP 131/75 12/12/24 14:54 Pulse Ox 95 12/12/24 14:54 O2 Del Method Nasal Cannula 12/12/24 14:54 O2 Flow Rate 2 12/12/24 14:54 Weight last 48 hrs Weight 230 lb Physical Exam Narrative: BELOW IS A FOCUSED LOWER EXTREMITY EXAM GENERAL: A&O x 3 VASCULAR: DP/PT pulses palpable 2/4 with CFT intact, <3seconds to distal digits DERMATOLOGICAL: Skin turgor and temperature is within normal limits. No interdigital maceration noted. No tenting of skin. No open wounds at the level of the ankle MUSCULOSKELETAL: Full musculoskeletal exam deferred secondary to posttraumatic state. Left ankle deformity with external rotation and transverse plane at the level of the ankle. NEUROLOGICAL: Neurological sensation diminished to distal digits consistent with diabetic peripheral neuropathy IMAGING: Three-view x-rays left ankle taken in the emergency department independently interpreted by me. These show distal tib-fib fracture. Hard to visualize the extent of the injury from x-rays obtained in the emergency department. CT scan was obtained and personally interpreted by me. This shows medial malleolar type D fracture pattern with comminution. Posterior malleolus fracture extending into 50% of articular surface of tibial plafond with distal comminution. Distal fibula shows extensive comminution. Data 12/12/24 16:20 12/12/24 16:20 A&P Assessment and plan 1. Pilon fracture of left tibia: 2. Closed fracture of left distal fibula: 3. Diabetes: 4. Diabetic peripheral neuropathy associated with type 2 diabetes mellitus: Plan: -Left distal tibia pilon fracture with comminuted distal fibula fracture -Labs and vitals reviewed -Diet: N.p.o. at midnight -Surgical plan: Plan for external fixation tomorrow 12/13/2024 at noon to left lower extremity. Plan of treatment discussed with patient and patient's daughter at bedside in the emergency department. All questions answered to satisfaction. After external fixation we will monitor neurovascular status and soft tissue envelope status to determine timing of definitive fixation of left lower extremity which will likely be in the form of TTC nail. -Pain Mgmt: Per primary team -Weight bearing: Nonweightbearing to left lower extremity -Dressings: Leave splint to left lower extremity clean, dry, intact until surgery tomorrow 12/13/2024 -Continue current Abx therapy until ID and Sensitivity results -Trend labs -Discharge plan: To be determined -Podiatry will continue to round on patient daily and provide recommendations PDMP PDMP Reviewed: Not Reviewed Coding Level of Care Code Acute Code for [facility] Fwd Diagnoses Pilon fracture of left tibia S82.872A Closed fracture of left distal fibula S82.832A Diabetes E11.9 Diabetic peripheral neuropathy associated with type 2 diabetes mellitus E11.42
[2024-12-12 16:49] LABS: INR 0.87 (0.8-1.2); Prothrombin Time 12.40 SECONDS (12.1-14.9)
[2024-12-12 16:50] LABS: Partial Thromboplastin Time 25.1 SECONDS (23.9-36.7)
[2024-12-12 16:53] LABS: Albumin Level 4.2 g/dL (3.5-5.2); Chloride 96 mmol/L (98-107); Potassium 4.8 mmol/L (3.5-5.1); Sodium 138 mmol/L (136-145)
[2024-12-12] MEDS: HYDROmorphone 0.5 MG/0.5 ML INJ 1 MG IVP (17:13)
[2024-12-12] MEDS: ondansetron 2 mg/ML SDV 2 mL 4 MG IVP (17:13)
[2024-12-12 17:46] LABS: Alanine Aminotransferase 8 U/L (0-33); Anion Gap 17.8 (5-19); Aspartate Amino Transferase 13 U/L (0-32); Blood Urea Nitrogen 56 mg/dL (8-23); Calcium 9.5 mg/dL (8.5-10.5); Carbon Dioxide 29 mmol/L (22-29); Creatinine Clr Calc Pharmacy 29.1330; Globulin 3.1 g/dL (1.3-4.6); Glucose 71 mg/dL (65-115); Osmolality Calculated 300 mOsm/kg (285-295); Total Protein 7.3 g/dL (6.6-8.7)
--- NOTE | 2024-12-12 17:52 | XRR_ITS ---
PROCEDURE INFORMATION: Exam: XR Left Ankle Exam date and time: 12/12/2024 5:53 PM Age: 74 years old Clinical indication: Other: Post reduction TECHNIQUE: Imaging protocol: Radiologic exam of the left ankle. Views: 3 or more views. COMPARISON: CT ankle LT wo con* [id number] 12/12/2024 3:41 PM FINDINGS: Tubes, catheters and devices: A fiberglass splint overlies the ankle. Bones/joints: Trimalleolar ankle fractures are again noted in the talus remains mildly displaced in the lateral direction in relation to the tibia. Soft tissues: Normal. XR/XR ankle LT min 3V* [id number] IMPRESSION: As above
[2024-12-12 18:18] LABS: Alkaline Phosphatase 74 U/L (35-105)
--- NOTE | 2024-12-12 20:05 | PM.HP ---
Providers/Chief Complaint Admitting Physician: Uli Haro MD Primary Care Provider: BERNARDINO Corbett Chief Complaint: fall - left ankle deformity History of Present Illness Kathy Willoughby is a 74 year old female with diabetes, chronic kidney disease, obesity who is elderly living and stick to a house built in 1964 and fell through the laundry room floor which had been water damage from bathroom water leak years ago. Her left ankle was deformed after called grandson Jorge Nolasco who is age 32 and came over and pulled her out of the crawlspace. She was brought to the emergency department via 911 and found to have mildly displaced comminuted fracture of the left ankle. Fibula and tibia. Patient was seen by Dr. Gaitan scheduled for surgery tomorrow. Patient has chronic kidney disease from diabetes and hypertension. She has been continued on metformin. Patient's primary care nurse practitioner is Debbie Burgos at [facility]. Patient states she has had diabetes since 1989 and insulin requiring for 8 to 9 years Patient denies chest pain Review of Systems Narrative: General No fevers chills Cardiovascular some chest pressure occasional palpitations positive for edema and dizziness Respiratory cough with clear phlegm GI no nausea vomiting she does have diarrhea and constipation at times no dysuria hematuria Neuro no seizures strokes limb weakness Malignancy history negative Heme negative for blood clots in legs or lungs Medications/Allergies Home Medications ?Medication ?Instructions ?Recorded ?Confirmed ?Last Taken ?Type gabapentin 300 mg capsule 300 mg PO TID 03/14/19 07/04/24 04/05/19 History metformin 500 mg tablet 500 mg PO BID 03/14/19 07/04/24 04/05/19 History ferrous sulfate 325 mg (65 mg 325 mg PO DAILY PRN iron 02/04/21 07/04/24 Unknown History iron) tablet carvedilol 12.5 mg tablet 12.5 mg PO BID #180 tabs 02/12/21 07/04/24 Unknown Rx valsartan 160 mg tablet 160 mg PO BID 02/19/21 07/04/24 Unknown History insulin glargine 100 unit/mL (3 30 unit SUBCUT DAILY 08/06/21 07/04/24 Unknown History mL) subcutaneous pen (Lantus Solostar U-100 Insulin) ezetimibe 10 mg tablet 10 mg PO DAILY 02/07/22 07/04/24 Unknown History amlodipine 5 mg tablet 5 mg PO DAILY 05/25/24 07/04/24 Unknown History furosemide 40 mg tablet 40 mg PO DAILY 05/25/24 07/04/24 Unknown History albuterol sulfate 90 mcg/actuation 1 inh inhalation Q6H PRN shortness 05/27/24 07/04/24 Unknown Rx aerosol inhaler (Ventolin HFA) of breath or wheezing #8.5 grams furosemide 40 mg tablet 40 mg PO BID 7 days #14 tabs 06/03/24 07/04/24 Unknown Rx potassium chloride 20 mEq 20 meq PO DAILY #7 tabs 06/03/24 07/04/24 Unknown Rx tablet,extended release (K-Tab) isosorbide dinitrate 30 mg tablet See Rx Instructions .Route 11/14/24 Unknown Rx .COMPLEX #180 tabs Allergies Allergy/AdvReac Type Severity Reaction Status Date / Time cimetidine (From Tagamet) Allergy Severe Suicidal Verified 07/04/24 07:37 levofloxacin (From Levaquin) AdvReac Mild Unknown Verified 07/04/24 07:37 PFSH Acute PFSH: Medical History (Updated 12/12/24 @ 20:16 by Uli Haro MD) CKD (chronic kidney disease) stage 3, GFR 30-59 ml/min Diabetes Epigastric pain Diverticulitis Callus of foot Onychomycosis Diabetic autonomic neuropathy Posterior tibial tendon dysfunction (PTTD) of left lower extremity Hiatal hernia Hyperlipidemia Hypertension Varicose veins of bilateral lower extremities with other complications Lower extremity edema Diastolic dysfunction Tricuspid valve regurgitation Mitral valve regurgitation Anemia EGD findings showed hiatal hernia and colonoscopy showed diverticulosis Surgical History S/P skin and subcutaneous tissue surgery Family History Father No problems noted. Mother Diabetes Chronic kidney disease (CKD) Hypertension Hyperlipidemia Sister Diabetes Stroke Hyperlipidemia Breast cancer Grandfather CAD (coronary artery disease) Lung disease Hypertension Grandmother Stroke Hypertension Denies family history of Clotting disorder Dementia Suicide Anesthesia complication Bleeding disorder Social History (Updated 12/12/24 @ 20:14 by Uli Haro MD) Smoking and tobacco/nicotine status: never used tobacco/nicotine Second hand smoke exposure: No Alcohol intake: never Substance/Drug Use: never Additional social history: She wants full code no prolong life support as discussed with myself and her daughter Nelsy on 12/12/2024 with Uli Haro MD. 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[place] [employer] Pets and animals: Yes Sexually active: No Do you think of yourself as: Straight/Heterosexual Current gender identity: Female Nilam/[employer]: [employer] Special nilam needs: No Agree to transfusion: Yes Female Reproductive History: Para: 1 Spontaneous abortions: Yes Date of menopause: 03/09/79 Vitals/I&O/Wt Last Vital Signs Temp 98.3 F 12/12/24 14:54 Pulse 72 12/12/24 19:31 Resp 16 12/12/24 14:54 BP 144/78 12/12/24 19:31 Pulse Ox 90 12/12/24 19:31 O2 Del Method Room Air 12/12/24 19:31 O2 Flow Rate 2 12/12/24 14:54 Weight last 48 hrs Weight 104.326 kg Physical Exam Narrative: General Well-developed obese female in no acute cardiopulmonary stress Neck no bruits CV regular rate and rhythm Lungs clear to auscultation bilaterally Abdomen positive bowel tones soft obese nontender Calves left one is in a splint right one trace to 1+ pedal edema but dorsal pedal pulses 2/4 on the right left side unable to be checked Skin warm and dry Mentation alert and oriented pleasant cooperative Data 12/12/24 16:20 12/12/24 16:20 A&P Assessment and plan 1. Trimalleolar fracture of left ankle: Heparin for DVT prophylaxis tonight skip tomorrow's dose in the morning. Similarly give Lantus 15 units at night but skip tomorrow morning's dose. Anticipate surgery in the morning 2. Diabetes: As above plus sliding scale insulin low scale 3. CKD (chronic kidney disease) stage 3, GFR 30-59 ml/min: Do not prescribe NSAIDs. Metformin should be stopped forever due to GFR of only 33 and below 50 4. Hypertension: Resume home blood pressure medications PDMP PDMP Reviewed: Not Reviewed Attestations Medical Necessity Statement*: Patient admitted to hospital with ankle fracture with surgery planned in the morning and will require greater than 2 midnights in the hospital Coding Level of Care Code 30365 Diagnoses Trimalleolar fracture of left ankle S82.852A Diabetes E11.9 CKD (chronic kidney disease) stage 3, GFR 30-59 ml/min N18.30 Hypertension I10 Time Spent (min) 70
[2024-12-12] MEDS: heparin 5,000 unit/mL INJ 1 mL 5000 UNIT SUBCUT (22:10)
[2024-12-12] MEDS: insulin glargine 100 units/1 mL 15 UNIT SUBCUT (22:48)
--- NOTE | 2024-12-12 22:54 | PC.NURSE ---
2230 Patient to [facility] from ER via [facility]. Patient moved to bed with 3 person assist. Report received from FREDRICK Garcia. Patient oriented to room and plan of care discussed.
[2024-12-12] MEDS: oxyCODONE 5 mg IR Tab/Cap PO (23:56)
[2024-12-13] VITALS (20 sets, daily range): BP systolic 114–143; BP diastolic 43–76; PULSE 64–80; RESP 16–18; TEMP 36.4–37.1; O2SAT 90–98; BMI 38.2
--- NOTE | 2024-12-13 05:39 | PC.NURSE ---
0538 Lantus insulin not given per MD instructions for preop
[2024-12-13 05:48] LABS: Hematocrit 31.5 % (36-47); Hemoglobin 9.80 g/dL (11.27-16.99); Mean Corpuscular HGB Conc 31.1 g/dL (30-55); Mean Corpuscular Hemoglobin 28.9 pg (27-33); Mean Corpuscular Volume 92.9 fl (85-98); Nucleated Red Blood Cells % 0 %; Platelet Count 209 10^3/cmm (157-399); Red Blood Count 3.39 10^6/uL (3.85-5.65); White Blood Count 7.02 10^3/uL (3.29-11.43)
[2024-12-13 06:20] LABS: Anion Gap 16.1 (5-19); Blood Urea Nitrogen 59 mg/dL (8-23); Calcium 9.2 mg/dL (8.5-10.5); Carbon Dioxide 30 mmol/L (22-29); Chloride 98 mmol/L (98-107); Creatinine Clr Calc Pharmacy 27.7457; Glucose 125 mg/dL (65-115); Osmolality Calculated 306 mOsm/kg (285-295); Potassium 5.1 mmol/L (3.5-5.1); Sodium 139 mmol/L (136-145); Thyroid Stimulating Hormone 1.23 uIU/mL (0.27-4.20)
--- NOTE | 2024-12-13 10:52 | ANES.PREANE2 ---
Pre-Anesthetic Assessment Height/Weight: Height 5 ft 5 in Weight 229 lb 15.991 oz Temp Pulse Resp BP Pulse Ox O2 Del Method O2 Flow Rate 98.1 F 80 16 136/64 94 Nasal Cannula 2 12/13/24 09:50 12/13/24 09:50 12/13/24 09:50 12/13/24 09:50 12/13/24 09:50 12/13/24 09:50 12/13/24 09:50 Operation Date: 12/13/24 12:00 Proposed Procedures p Application External Fixator Ankle/Foot External Fixator Ankle(Left) - Scooter Gaitan DPM Anesthetic Plan Other: No prior issues with anesthesia NPO since yesterday evening History of hypertension on amlodipine and carvedilol IDDM, BS 125 Labs reviewed from today and acceptable for procedure Prior echo 2022 showing EF of 60% Plan for general anesthesia Medications/Allergies Home Medications ?Medication ?Instructions ?Recorded ?Confirmed ?Last Taken ?Type gabapentin 300 mg capsule 300 mg PO TID 03/14/19 07/04/24 04/05/19 History metformin 500 mg tablet 500 mg PO BID 03/14/19 07/04/24 04/05/19 History ferrous sulfate 325 mg (65 mg 325 mg PO DAILY PRN iron 02/04/21 07/04/24 Unknown History iron) tablet carvedilol 12.5 mg tablet 12.5 mg PO BID #180 tabs 02/12/21 07/04/24 Unknown Rx valsartan 160 mg tablet 160 mg PO BID 02/19/21 07/04/24 Unknown History insulin glargine 100 unit/mL (3 30 unit SUBCUT DAILY 08/06/21 07/04/24 Unknown History mL) subcutaneous pen (Lantus Solostar U-100 Insulin) ezetimibe 10 mg tablet 10 mg PO DAILY 02/07/22 07/04/24 Unknown History amlodipine 5 mg tablet 5 mg PO DAILY 05/25/24 07/04/24 Unknown History furosemide 40 mg tablet 40 mg PO DAILY 05/25/24 07/04/24 Unknown History albuterol sulfate 90 mcg/actuation 1 inh inhalation Q6H PRN shortness 05/27/24 07/04/24 Unknown Rx aerosol inhaler (Ventolin HFA) of breath or wheezing #8.5 grams furosemide 40 mg tablet 40 mg PO BID 7 days #14 tabs 06/03/24 07/04/24 Unknown Rx potassium chloride 20 mEq 20 meq PO DAILY #7 tabs 06/03/24 07/04/24 Unknown Rx tablet,extended release (K-Tab) isosorbide dinitrate 30 mg tablet See Rx Instructions .Route 11/14/24 Unknown Rx .COMPLEX #180 tabs Allergies Allergy/AdvReac Type Severity Reaction Status Date / Time cimetidine (From Tagamet) Allergy Severe Suicidal Verified 07/04/24 07:37 [facility] AdvReac Mild Unknown Verified 07/04/24 07:37 Current Medications Generic Name Dose Route Start Last Admin Trade Name Freq PRN Reason Stop Dose Admin Amlodipine Besylate 5 mg 12/13/24 05:00 12/13/24 05:38 Amlodipine 5 Mg Tablet PO Not Given DAILY [facility] Carvedilol 12.5 mg 12/13/24 05:00 12/13/24 05:38 Carvedilol 12.5 Mg Tablet PO Not Given BID [facility] Docusate Sodium 100 mg 12/13/24 05:00 12/13/24 05:38 Docusate Sodium 100 Mg Capsule PO Not Given BID [facility] Ezetimibe 10 mg 12/13/24 05:00 12/13/24 05:38 Ezetimibe 10 Mg Tablet PO Not Given DAILY [facility] Furosemide 40 mg 12/13/24 05:00 12/13/24 05:38 Furosemide 40 Mg Tablet PO Not Given BID [facility] Gabapentin 300 mg 12/12/24 21:00 12/13/24 05:38 Gabapentin 300 Mg Capsule PO Not Given TID [facility] Heparin Sodium (Porcine) 5,000 unit 12/12/24 21:00 12/13/24 07:32 Heparin 5,000 Unit/Ml Inj 1 Ml SUBCUT Not Given Q12H [facility] Insulin Glargine 15 unit 12/12/24 21:00 12/13/24 05:39 Insulin Glargine 100 Units/1 Ml SUBCUT Not Given BID [facility] Insulin Human Lispro 0 unit 12/12/24 21:00 12/13/24 07:32 Insulin Lispro 100 Unit/1 Ml SUBCUT Not Given WM&BEDTIME [facility] Protocol Isosorbide Dinitrate 30 mg 12/12/24 05:00 12/13/24 05:38 Isosorbide Dinitrate 20 Mg Tablet PO Not Given BID [facility] Losartan Potassium 50 mg 12/13/24 05:00 12/13/24 05:39 Losartan 50 Mg Tablet PO Not Given BID [facility] Oxycodone HCl 5 mg 12/12/24 20:00 12/12/24 23:56 Oxycodone 5 Mg Ir Tab/Cap PO 5 mg Q6H PRN Administration SEVERE PAIN Potassium Chloride 20 meq 12/13/24 05:00 12/13/24 05:39 Potassium Chloride Er 20 Meq Tablet PO Not Given DAILY JU PFSH Anesthesia Medical History (Updated 12/12/24 @ 20:16 by Uli Haro MD) CKD (chronic kidney disease) stage 3, GFR 30-59 ml/min Diabetes Epigastric pain Diverticulitis Callus of foot Onychomycosis Diabetic autonomic neuropathy Posterior tibial tendon dysfunction (PTTD) of left lower extremity Hiatal hernia Hyperlipidemia Hypertension Varicose veins of bilateral lower extremities with other complications Lower extremity edema Diastolic dysfunction Tricuspid valve regurgitation Mitral valve regurgitation Anemia EGD findings showed hiatal hernia and colonoscopy showed diverticulosis Surgical History S/P skin and subcutaneous tissue surgery Family History Father No problems noted. Mother Diabetes Chronic kidney disease (CKD) Hypertension Hyperlipidemia Sister Diabetes Stroke Hyperlipidemia Breast cancer Grandfather CAD (coronary artery disease) Lung disease Hypertension Grandmother Stroke Hypertension Denies family history of Clotting disorder Dementia Suicide Anesthesia complication Bleeding disorder Social History (Updated 12/12/24 @ 20:14 by Uli Haro MD) Smoking and tobacco/nicotine status: never used tobacco/nicotine Second hand smoke exposure: No Alcohol intake: never Substance/Drug Use: never Additional social history: She wants full code no prolong life support as discussed with myself and her daughter Nelsy on 12/12/2024 with Uli Haro MD. 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[employer] Pets and animals: Yes Sexually active: No Do you think of yourself as: Straight/Heterosexual Current gender identity: Female Nilam/Jainism: [employer] [place] Special nilam needs: No Agree to transfusion: Yes Female Reproductive History Para: 1 Spontaneous abortions: Yes Date of menopause: 03/09/79 Data Anesthesia 12/13/24 05:41 12/13/24 05:41 Short CBC 12/12/24 12/13/24 Range/Units 16:20 05:41 WBC 12.58 H 7.02 (3.29-11.43) 10^3/uL Hgb 10.90 L 9.80 L (11.27-16.99) g/dL Hct 34.1 L 31.5 L (36-47) % MCV 91.4 92.9 (85-98) fl Plt Count 233 209 (157-399) 10^3/cmm Neut % (Auto) 81.7 65.4 % Neut # (Auto) 10.28 H 4.59 (1.8-7.7) 10^3/uL BMP 12/12/24 12/13/24 16:20 05:41 Sodium 138 139 Potassium 4.8 5.1 Chloride 96 L 98 Carbon Dioxide 29 30 H BUN 56 H 59 H Creatinine 2.0 H 2.1 H Glucose 71 125 H Calcium 9.5 9.2 Liver Function 12/12/24 Range/Units 16:20 Total Bilirubin 0.4 (0.15-1.2) mg/dL AST 13 (0-32) U/L ALT 8 (0-33) U/L Alkaline Phosphatase 74 (35-105) U/L Albumin 4.2 (3.5-5.2) g/dL Coags 12/12/24 16:20 PT 12.40 INR 0.87 APTT 25.1 Cardiac Studies: Echocardiogram 09/11/22 Echocardiogram Ultrasound 03/11/19
--- NOTE | 2024-12-13 10:55 | PC.NURSE ---
Pt to preop with nursing staff per bed
--- NOTE | 2024-12-13 11:34 | W.PM.OPSUD ---
Surgery/Procedure H&P Update DATE OF PROCEDURE: December 13, 2024 DATE H&P PERFORMED: 12/12/24 H&P UPDATE INFORMATION: I have reviewed H&P completed within last 30 days, I have examined patient prior to procedure, No changes to prior documentation, H&P is in [facility] EMR on date indicated and Risks and benefits of the procedure reviewed PLANNED PROCEDURE: Operation Date: 12/13/24 12:00 Proposed Procedures p Application External Fixator Ankle/Foot External Fixator Ankle(Left) - Scooter Gaitan DPM
[2024-12-13] MEDS: ceFAZolin 2,000 mg SDV 2000 MG IVP (12:35)
[2024-12-13] MEDS: BUPivacaine 0.5% INJ 30 mL INJECTION (12:46)
--- NOTE | 2024-12-13 13:19 | XR_ITS ---
WS: [email or web address] Left foot, 3 views, 12/13/2024 Clinical Data: left foot trauma Comparison: Left ankle, 12/13/2024 Findings: There is a small fixator marcelle in the base of the left first metatarsal. There are there is a longer marcelle crossing the calcaneus. These devices aid in external skeletal fixation to reduce a trimalleolar fracture of the left ankle. XR/XR foot LT min 3V* [id number] Impression: External skeletal fixation to reduce trimalleolar fracture of the left ankle.
--- NOTE | 2024-12-13 13:19 | XR_ITS ---
WS: [email or web address] Left ankle, 3 views, 12/13/2024 Clinical Data: postop Comparison: Left ankle, 12/12/2024 Findings: The trimalleolar fracture has been reduced with external skeletal fixation. There are rods in the proximal third of the left tibia and a rods across the talus. An additional marcelle crosses the calcaneus and a pin appears in the left first metatarsal. XR/XR ankle LT min 3V* [id number] Impression: Trimalleolar fracture left ankle reduced with external skeletal fixation.
--- NOTE | 2024-12-13 13:20 | W.PM.BPON ---
Date of procedure: 12/13/2024 Surgeon name: Bridget GoodePCarmen Site Reliability Engineer(s) name(s): Kendrick Procedure(s) performed: Closed reduction left ankle with external fixator application and drainage of fracture blister Description of findings: Fracture blister Estimated blood loss: 3 cc Tourniquet time: No tourniquet used Specimen(s) removed: None Post-operative diagnosis: Left pilon and distal fibular fracture
[2024-12-13] MEDS: fentaNYL 50 mcg/mL INJ 2mL IVP (14:29)
--- NOTE | 2024-12-13 16:47 | XR_ITS ---
WS: [email or web address] Left ankle, C-arm fluoroscopy views, 12/13/2024 Clinical Data: HAMLET PICS Comparison: Left ankle, 12/12/2024 Findings: Dr. Gaitan applied external skeletal fixation with 2 orthopedic nails in the mid tibia and one in the calcaneus. XR/XR ankle LT min 3V* [id number] Impression: External skeletal fixation to reduce left ankle fracture.
[2024-12-13] MEDS: oxyCODONE 5 mg IR Tab/Cap PO (17:40)
[2024-12-13] MEDS: insulin glargine 100 units/1 mL 15 UNIT SUBCUT (17:41)
--- NOTE | 2024-12-13 17:43 | P.PN_ITS ---
Subjective 2 Subjective: 74-year-old female with diabet es underwent left ankle external fixation today. She and her daughter point out bruising on her right foot along the fourth distal metatarsal which has been tender. Patient has neuropathy. They wonder if this has a fracture and would like it x-rayed. Vitals/I&O/Wt Last Vital Signs Temp 98.6 F 12/13/24 17:01 Pulse 74 12/13/24 17:01 Resp 18 12/13/24 17:01 BP 114/71 12/13/24 17:01 Pulse Ox 90 12/13/24 17:01 O2 Del Method Nasal Cannula 12/13/24 17:01 O2 Flow Rate 2 12/13/24 13:52 FiO2 2 12/13/24 15:03 12/13/24 12/13/24 12/13/24 06:59 14:59 22:59 Intake Total 100 / 100 Output Total 5 / 5 Balance 95 / 95 Weight last 48 hrs Weight 104.326 kg Weight 104.326 kg Physical Exam 2 Narrative: General Well-developed obese female in no acute cardiopulmonary stress Neck no bruits CV regular rate and rhythm Lungs clear to auscultation bilaterally Abdomen positive bowel tones soft obese nontender Calves right no edema left side in Chad wrap and external fixation Feet right foot with third fourth distal metatarsal ecchymosis mildly tender to range of motion. Left foot she has adequate flexion extension of the big toe and gross sensation is intact Skin warm and dry Mentation alert and oriented pleasant cooperative Data 12/13/24 05:41 12/13/24 05:41 A&P Assessment and plan 1. Trimalleolar fracture of left ankle: Externally fixated. Continue with heparin DVT prophylaxis 2. Diabetes: As above plus sliding scale insulin low scale. Continue with Lantus 15 units subcu twice daily 3. CKD (chronic kidney disease) stage 3, GFR 30-59 ml/min: Do not prescribe NSAIDs. Metformin should be stopped forever due to GFR of only 33 and below 50 4. Primary hypertension: Resume home blood pressure medications 5. Right foot pain: Will obtain 2 view plain film PDMP PDMP Reviewed: Not Reviewed Attestations 2 Medical Necessity Statement*: Patient remains in the hospital for additional surgery regarding her left ankle fracture and will require greater than 2 midnights additionally in the hospital Coding Level of Care Code 94780 Diagnoses Trimalleolar fracture of left ankle S82.852A Diabetes E11.9 CKD (chronic kidney disease) stage 3, GFR 30-59 ml/min N18.30 Primary hypertension I10 Hypertension type: primary hypertension Right foot pain M79.671 Time Spent (min) 25
--- NOTE | 2024-12-13 18:07 | XRR_ITS ---
PROCEDURE INFORMATION: Exam: XR Right Foot Exam date and time: 12/13/2024 6:12 PM Age: 74 years old Clinical indication: Injury or trauma; Fall; Blunt trauma; Foot; Right; Injury details: Bruising to 4th metatarsal area; Additional info: Right distal fourth metatarsal pain and bruising TECHNIQUE: Imaging protocol: Radiologic exam of the right foot. Views: 1 or 2 views. COMPARISON: No relevant prior studies available. FINDINGS: Bones/joints: No acute fracture or subluxation. Diffuse osteopenia. Small inferior calcaneal enthesophyte. Soft tissues: Mild soft tissue swelling. XR/XR foot RT 2V [id number] IMPRESSION: 1. No acute fracture or subluxation. 2. Diffuse osteopenia.
[2024-12-13] MEDS: morphine 4 mg/mL SDV 1 mL 2 MG IVP (19:19)
[2024-12-13] MEDS: heparin 5,000 unit/mL INJ 1 mL 5000 UNIT SUBCUT (21:17)
--- NOTE | 2024-12-13 22:58 | PM.OP ---
Operative Report Date of procedure: December 13, 2024 Surgeon: Scooter Gaitan DPM Procedure: Date of procedure: 12/13/2024 Pre-op diagnosis: Left distal pilon fracture and distal fibular fracture Post-op diagnosis: Same Post-op findings: Left distal pilon fracture distal fibula fracture Procedure done: Closed reduction application of multiplanar external fixator left lower extremity CPT 26478 Implants: Multiplane external fixator [place] 28 Specimens removed: None Surgeon: Dr. Scooter Gaitan DPM Weld Engineer: Kendrick Estimated blood loss: 3 cc Tourniquet time: No tourniquet used Complications: None Patient is a 74-year-old female that sustained left distal tibia pilon fracture and distal fibula comminuted fracture. The nature of the fracture pattern is inherently unstable. This warrants temporary fixation via external fixation to allow soft tissue envelope to normalize in preparation for final fixation. A lengthy discussion regarding the procedure, including risks and complications has been had with the patient and is noted in the recent clinic note. Written and verbal consent have been obtained. All patient questions have been answered to the patient?s satisfaction. No written or verbal guarantees have been given or implied. The patient has been NPO since midnight. The history has been reviewed and the history and physical is current. The signed consent was confirmed and placed in the patient chart. Patient imaging has been reviewed and is consistent with the diagnosis. Under mild sedation, the patient was brought into the operating room and placed on the table in the supine position. IV antibiotics were given by the anesthesia team as preoperative surgical prophylaxis. General sedation was then performed by the anesthesiateam. A pneumatic tourniquet was then placed about the left thigh. The operative extremity was then prepped and draped in the usual fashion. After prep, the following procedure was then performed. Attention was directed to the left ankle where foot was noted to be externally rotated at the level of the ankle. In order to stabilize the ankle external fixation was warranted. Two 5 mm half pins were driven into the anterior left tibia just medial to the tibial crest. Good position of these pins was noted on C-arm imaging on both AP and lateral projections. Next, a 5 hole pin clamp was fastened to these have tibial pins. 2 angled posts were then inserted into the pin clamp. Transfixation pin was then driven from lateral to medial through the body of the calcaneus. Good positioning of the pin was noted on C-arm imaging both lateral and calcaneal axial views. 2 carbon bars were then attached to the angled posts and to the transaxial pin. The ankle was reduced to appropriate anatomic position to reduce the talus in the mortise. The carbon rods were then securely tightened to maintain fixation. It was determined that multiplanar bar application would be necessary to maintain 90 degrees. A half pin was driven into the dorsal medial first metatarsal head before a short carbon bar was attached from the longer bar to the half pin of the first metatarsal. Posterior kickstand was applied to multiplanar external fixator to float heel from bed. This was tightened down once appropriate anatomic position was noted. All pins were dressed with Xeroform, 4 x 4 gauze, Kerlix and Chad. Hemostasis was noted to be achieved. The patient tolerated the procedure and anesthesia well and without complication. The patient was transported from the operating room to the recovery room with vital signs stable and vascular status intact to all digits of the left foot. Thepatient was instructed to remain nonweightbearing to the operative extremity, to keep surgical dressing clean, dry and intact. The patient will be transferred back to the floor once anesthesia criteria is met. I will continue to round on and follow the patient in the inpatientsetting and provide recommendations to stabilize the patient for discharge.
[2024-12-14] VITALS (12 sets, daily range): BP systolic 103–145; BP diastolic 57–76; PULSE 58–74; RESP 16–20; TEMP 36.3–37; O2SAT 91–96
[2024-12-14] MEDS: oxyCODONE 5 mg IR Tab/Cap PO ×3 (00:48→15:44)
[2024-12-14] MEDS: insulin glargine 100 units/1 mL 15 UNIT SUBCUT ×2 (05:07→17:36)
[2024-12-14 05:15] LABS: Anion Gap 14.9 (5-19); Blood Urea Nitrogen 47 mg/dL (8-23); Calcium 8.9 mg/dL (8.5-10.5); Carbon Dioxide 28 mmol/L (22-29); Chloride 97 mmol/L (98-107); Creatinine Clr Calc Pharmacy 32.3700; Glucose 181 mg/dL (65-115); Osmolality Calculated 297 mOsm/kg (285-295); Potassium 4.9 mmol/L (3.5-5.1); Sodium 135 mmol/L (136-145)
[2024-12-14] MEDS: heparin 5,000 unit/mL INJ 1 mL 5000 UNIT SUBCUT ×2 (08:38→20:30)
[2024-12-14] MEDS: ondansetron 2 mg/ML SDV 2 mL 4 MG IVP (09:48)
--- NOTE | 2024-12-14 11:28 | P.PN_ITS ---
Subjective 2 Subjective: Patient seen at bedside this morning. Resting comfortably. No overnight events. Pain is well-controlled. Vitals/I&O/Wt Last Vital Signs Temp 97.4 F L 12/14/24 08:00 Pulse 58 L 12/14/24 08:59 Resp 17 12/14/24 08:59 BP 126/62 12/14/24 08:00 Pulse Ox 92 12/14/24 08:59 O2 Del Method Nasal Cannula 12/14/24 08:59 O2 Flow Rate 2 12/14/24 08:59 FiO2 2 12/13/24 15:03 12/13/24 12/14/24 12/14/24 22:59 06:59 14:59 Intake Total 240 / 340 Balance 240 / 335 Weight last 48 hrs Weight 230 lb Weight 229 lb 15.991 oz Weight 230 lb Physical Exam 2 Narrative: BELOW IS A FOCUSED LOWER EXTREMITY EXAM GENERAL: A&O x 3 VASCULAR: DP/PT pulses palpable 2/4 with CFT intact, <3seconds to distal digits DERMATOLOGICAL: External fixator intact left lower extremity no strikethrough of surgical dressing noted. MUSCULOSKELETAL: Full musculoskeletal exam deferred secondary to posttraumatic state. External fixator multiplanar to left lower extremity NEUROLOGICAL: Neurological sensation diminished to distal digits consistent with diabetic peripheral neuropathy IMAGING: Postop images show talus well position within the mortise of the left ankle. External fixator intact Data 12/13/24 05:41 12/14/24 04:39 A&P Assessment and plan 1. Pilon fracture of left tibia: 2. Closed fracture of left distal fibula: 3. Diabetes: 4. Diabetic peripheral neuropathy associated with type 2 diabetes mellitus: Plan: -Left distal tibia pilon fracture with comminuted distal fibula fracture -Labs and vitals reviewed -Diet: Okay for diet -Surgical plan: Patient will need to return to operating room for definitive surgical treatment. This may be in coming days pending soft tissue envelope response. Continue to monitor neurovascular status. Plan for dressing change tomorrow 12/15/2024 to determine status of soft tissue envelope and whether amenable to definitive fixation on 12/16/2024 -Pain Mgmt: Per primary team -Weight bearing: Nonweightbearing to left lower extremity -Dressings: Leave surgical dressing clean, dry, intact -Continue current Abx therapy until ID and Sensitivity results -Trend labs -Discharge plan: To be determined -Podiatry will continue to round on patient daily and provide recommendations PDMP PDMP Reviewed: Not Reviewed Attestations 2 Medical Necessity Statement*: Continue neurovascular monitoring left lower extremity. Evaluate soft tissue envelope for definitive fixation Coding Level of Care Code Acute Code for Chg Fwd Diagnoses Pilon fracture of left tibia S82.872A Closed fracture of left distal fibula S82.832A Diabetes E11.9 Diabetic peripheral neuropathy associated with type 2 diabetes mellitus E11.42
--- NOTE | 2024-12-14 18:02 | P.PN_ITS ---
Subjective 2 Subjective: Patient is accompanied by her daughter Makayla Willoughby is the youngest daughter patient states her pain is controlled. She has not had a bowel movement here but feels like she could. She is concerned about being in external fixation and needing to have a bowel movement. Vitals/I&O/Wt Last Vital Signs Temp 97.5 F L 12/14/24 16:00 Pulse 74 12/14/24 16:00 Resp 17 12/14/24 16:00 BP 138/63 12/14/24 16:29 Pulse Ox 91 12/14/24 16:00 O2 Del Method Nasal Cannula 12/14/24 16:00 O2 Flow Rate 2 12/14/24 08:59 FiO2 2 12/13/24 15:03 12/14/24 12/14/24 12/14/24 06:59 14:59 22:59 Intake Total 240 / 240 240 / 480 Balance 240 / 240 240 / 480 Weight last 48 hrs Weight 104.326 kg Weight 104.326 kg Physical Exam 2 Narrative: General Well-developed obese female in no acute cardiopulmonary stress Neck no bruits CV regular rate and rhythm Lungs clear to auscultation bilaterally Abdomen positive bowel tones soft obese nontender Calves right no edema left side in Chad wrap and external fixation Feet right foot with third fourth distal metatarsal ecchymosis mildly tender to range of motion. Left foot she has adequate flexion extension of the big toe and gross sensation is intact Skin warm and dry Mentation alert and oriented pleasant cooperative Data 12/13/24 05:41 12/14/24 04:39 A&P Assessment and plan 1. Trimalleolar fracture of left ankle: Externally fixated. Continue with heparin DVT prophylaxis 2. Diabetes: As above plus sliding scale insulin low scale. Continue with Lantus 15 units subcu twice daily 3. CKD (chronic kidney disease) stage 3, GFR 30-59 ml/min: Do not prescribe NSAIDs. Metformin should be stopped forever due to GFR of only 33 and below 50 4. Primary hypertension: Resume home blood pressure medications 5. Right foot pain: Will obtain 2 view plain film PDMP PDMP Reviewed: Not Reviewed Attestations 2 Medical Necessity Statement*: Patient is in the hospital and external fixation with ORIF planned Thursday and will remain the hospital for 2 additional midnights Coding Level of Care Code 60154 Diagnoses Trimalleolar fracture of left ankle S82.852A Diabetes E11.9 CKD (chronic kidney disease) stage 3, GFR 30-59 ml/min N18.30 Primary hypertension I10 Hypertension type: primary hypertension Right foot pain M79.671 Time Spent (min) 15
[2024-12-15] VITALS (14 sets, daily range): BP systolic 104–126; BP diastolic 52–73; PULSE 58–74; RESP 16–18; TEMP 36.4–36.8; O2SAT 90–97
[2024-12-15] MEDS: oxyCODONE 5 mg IR Tab/Cap PO ×4 (01:09→17:36)
[2024-12-15] MEDS: polyethylene glycol 3350 Pkt 17 gm PO (04:17)
[2024-12-15] MEDS: insulin glargine 100 units/1 mL 15 UNIT SUBCUT ×2 (04:19→17:36)
[2024-12-15 05:38] LABS: Anion Gap 13.6 (5-19); Blood Urea Nitrogen 46 mg/dL (8-23); Calcium 8.9 mg/dL (8.5-10.5); Carbon Dioxide 31 mmol/L (22-29); Chloride 98 mmol/L (98-107); Creatinine Clr Calc Pharmacy 30.6663; Glucose 130 mg/dL (65-115); Osmolality Calculated 300 mOsm/kg (285-295); Potassium 4.6 mmol/L (3.5-5.1); Sodium 138 mmol/L (136-145)
[2024-12-15] MEDS: heparin 5,000 unit/mL INJ 1 mL 5000 UNIT SUBCUT ×2 (08:21→20:12)
--- NOTE | 2024-12-15 10:53 | P.PN_ITS ---
Subjective 2 Subjective: Patient seen at bedside this morning. Resting comfortably. No overnight events. Pain is well-controlled. Vitals/I&O/Wt Last Vital Signs Temp 97.9 F 12/15/24 08:09 Pulse 58 L 12/15/24 09:14 Resp 16 12/15/24 09:14 BP 109/56 12/15/24 08:09 Pulse Ox 97 12/15/24 09:14 O2 Del Method Nasal Cannula 12/15/24 09:14 O2 Flow Rate 2 12/15/24 09:14 FiO2 2 12/13/24 15:03 12/14/24 12/15/24 12/15/24 22:59 06:59 14:59 Intake Total 240 / 480 240 / 240 Output Total 1000 / 1000 Balance 240 / 480 -1000 / -520 240 / 240 Weight last 48 hrs Weight 230 lb Weight 230 lb Physical Exam 2 Narrative: BELOW IS A FOCUSED LOWER EXTREMITY EXAM GENERAL: A&O x 3 VASCULAR: DP/PT pulses palpable 2/4 with CFT intact, <3seconds to distal digits DERMATOLOGICAL: Surgical dressing change at bedside. No new fracture blisters. Swelling improved. No signs of infection. Pin sites clean no active drainage MUSCULOSKELETAL: Full musculoskeletal exam deferred secondary to posttraumatic state. External fixator multiplanar to left lower extremity NEUROLOGICAL: Neurological sensation diminished to distal digits consistent with diabetic peripheral neuropathy IMAGING: Postop images show talus well position within the mortise of the left ankle. External fixator intact Data 12/13/24 05:41 12/15/24 04:48 A&P Assessment and plan 1. Pilon fracture of left tibia: 2. Closed fracture of left distal fibula: 3. Diabetes: 4. Diabetic peripheral neuropathy associated with type 2 diabetes mellitus: Plan: -Left distal tibia pilon fracture with comminuted distal fibula fracture -Labs and vitals reviewed -Diet: N.p.o. at midnight for procedure tomorrow 12/16/[address] Tate -Surgical plan: Patient will need to return to operating room for definitive surgical treatment. This may be in coming days pending soft tissue envelope response. Continue to monitor neurovascular status. Dr. Taet will evaluate patient to discuss definitive surgical fixation. Dr. Tate has been consulted. -Pain Mgmt: Per primary team -Weight bearing: Nonweightbearing to left lower extremity -Dressings: Leave surgical dressing clean, dry, intact -Continue current Abx therapy until ID and Sensitivity results -Trend labs -Discharge plan: To be determined -Podiatry will continue to round on patient daily and provide recommendations PDMP PDMP Reviewed: Not Reviewed Attestations 2 Medical Necessity Statement*: Awaiting definitive fixation Coding Level of Care Code Acute Code for Chg Fwd Diagnoses Pilon fracture of left tibia S82.872A Closed fracture of left distal fibula S82.832A Diabetes E11.9 Diabetic peripheral neuropathy associated with type 2 diabetes mellitus E11.42
--- NOTE | 2024-12-15 15:09 | P.PN_ITS ---
Subjective 2 Subjective: 74-year-old female states she had a bowel movement yesterday but feels like she could go more. She denies abdominal pain or nausea. Patient reports her right heel is feeling sore against the bed. Patient states she is interested in weight loss and willing to have a diet restricting her from caloric drinks, concentrated sweets and desserts. She states she has quit drinking soda in general already and does not really like milk Vitals/I&O/Wt Last Vital Signs Temp 98.2 F 12/15/24 13:36 Pulse 74 12/15/24 13:36 Resp 18 12/15/24 13:36 BP 104/52 12/15/24 13:36 Pulse Ox 93 12/15/24 13:36 O2 Del Method Nasal Cannula 12/15/24 13:36 O2 Flow Rate 2 12/15/24 09:14 FiO2 2 12/13/24 15:03 12/15/24 12/15/24 12/15/24 06:59 14:59 22:59 Intake Total 480 / 480 Output Total 1000 / 1000 Balance -1000 / -520 480 / 480 Weight last 48 hrs Weight 104.326 kg Weight 104.326 kg Physical Exam 2 Narrative: General Well-developed obese female in no acute cardiopulmonary stress Neck no bruits CV regular rate and rhythm Lungs clear to auscultation bilaterally Abdomen positive bowel tones soft obese nontender Calves right no edema left side in [place] wrap and external fixation Left foot she has adequate flexion extension of the big toe and gross sensation is intact Skin warm and dry Mentation alert and oriented pleasant cooperative Data 12/13/24 05:41 12/15/24 04:48 A&P Assessment and plan 1. Trimalleolar fracture of left ankle: Externally fixated. Continue with heparin DVT prophylaxis. Open reduction internal fixation planned tomorrow 2. Diabetes: As above plus sliding scale insulin low scale. Continue with Lantus 15 units subcu twice daily 3. CKD (chronic kidney disease) stage 3, GFR 30-59 ml/min: Do not prescribe NSAIDs. Metformin should be stopped forever due to GFR of only 33 and below 50 Stop amlodipine for now. Decrease furosemide to once a day continue off potassium for now 4. Primary hypertension: As above 5. Right foot pain: Will obtain 2 view plain film. Right foot no fracture. Will start heel protector right foot PDMP PDMP Reviewed: Not Reviewed Attestations 2 Medical Necessity Statement*: Patient caroline in the hospital with anticipated surgery tomorrow and couple days for recovery before going to [facility] Coding Level of Care Code 23385 Diagnoses Trimalleolar fracture of left ankle S82.852A Diabetes E11.9 CKD (chronic kidney disease) stage 3, GFR 30-59 ml/min N18.30 Primary hypertension I10 Hypertension type: primary hypertension Right foot pain M79.671 Time Spent (min) 25
--- NOTE | 2024-12-15 16:57 | PM.CONSULT ---
Providers/Reason For Consult Consulting Physician/Specialty*: Hima Tate D.P.M./podiatry Reason for Consult*: Surgical management of left pilon fracture and distal fibular fracture injury occurred at home 12/12/2024 fell through the floor at her house. Admitted to hospital service, external fixator applied 12/13/2024 with plan for staged procedure requiring soft tissue and neurovascular monitoring. Attending Physician: Uli Haro MD Primary Care Provider: BERNARDINO Corbett History of Present Illness History of Present Illness Kathy Willoughby is a 74 year old female who sustained a left ankle injury 12/12/2024. Review of Systems General: Reports: 10 or more systems reviewed and unremarkable except in HPI and below Const: Denies: fever(s) or chills Card: Denies: chest pain or palpitations Resp: Denies: productive cough GI: Denies: abdominal pain, nausea or vomiting : Denies: flank pain Musc: Reports: extremity swelling, joint pain, joint stiffness, limited range of motion and deformity Skin/Breast: Reports: nail changes and change in hair; Denies: rash or sores Neuro: Reports: numbness in extremities, sensory changes and difficulty walking Psych: Denies: suicidal ideation Jewel/Lymph: Denies: easy bruising Medications/Allergies Home Medications ?Medication ?Instructions ?Recorded ?Confirmed ?Last Taken ?Type gabapentin 300 mg capsule 300 mg PO TID 03/14/19 12/13/24 12/12/24 09:00 History metformin 500 mg tablet 500 mg PO BID 03/14/19 12/13/24 12/12/24 08:00 History ferrous sulfate 325 mg (65 mg 325 mg PO DAILY PRN iron 02/04/21 12/13/24 12/12/24 08:00 History iron) tablet carvedilol 12.5 mg tablet 12.5 mg PO BID #180 tabs 02/12/21 12/13/24 12/12/24 08:30 Rx valsartan 160 mg tablet 160 mg PO BID 02/19/21 12/13/24 12/12/24 09:00 History insulin glargine 100 unit/mL (3 15 unit SUBCUT BID 08/06/21 12/13/24 12/12/24 08:00 History mL) subcutaneous pen (Lantus Solostar U-100 Insulin) ezetimibe 10 mg tablet 10 mg PO DAILY 02/07/22 12/13/24 12/12/24 08:30 History amlodipine 5 mg tablet 5 mg PO DAILY 05/25/24 12/13/24 12/12/24 08:00 History furosemide 40 mg tablet 40 mg PO DAILY 05/25/24 12/13/24 12/12/24 08:00 History isosorbide dinitrate 30 mg tablet See Rx Instructions .Route 11/14/24 12/13/24 12/12/24 09:00 Rx .COMPLEX #180 tabs albuterol sulfate 90 mcg/actuation See Rx Instructions .Route .COMPLEX 12/13/24 12/13/24 Unknown History aerosol inhaler ascorbic acid (vitamin C) 500 mg 500 mg PO DAILY 12/13/24 12/13/24 12/12/24 09:00 History tablet (Vitamin C) docusate sodium 50 mg capsule 50 mg PO DAILY PRN Constipation 12/13/24 12/13/24 Unknown History pantoprazole 40 mg tablet,delayed 40 mg PO DAILY 12/13/24 12/13/24 12/12/24 09:00 History release Allergies Allergy/AdvReac Type Severity Reaction Status Date / Time cimetidine (From Tagamet) Allergy Severe Suicidal Verified 07/04/24 07:37 levofloxacin (From Levaquin) AdvReac Mild Unknown Verified 07/04/24 07:37 Current Medications Generic Name Dose Route Start Last Admin Trade Name Freq PRN Reason Stop Dose Admin Acetaminophen 650 mg 12/12/24 20:00 12/15/24 16:41 Acetaminophen 325 Mg Tablet PO 650 mg Q6H PRN Administration Mild/Mod Pain Or Temp >/= 101 Carvedilol 12.5 mg 12/13/24 05:00 12/15/24 16:43 Carvedilol 12.5 Mg Tablet PO 12.5 mg BID JU Administration Docusate Sodium 100 mg 12/13/24 05:00 12/15/24 16:42 Docusate Sodium 100 Mg Capsule PO 100 mg BID JU Administration Ezetimibe 10 mg 12/13/24 05:00 12/15/24 04:17 Ezetimibe 10 Mg Tablet PO 10 mg DAILY JU Administration Gabapentin 300 mg 12/12/24 21:00 12/15/24 13:06 Gabapentin 300 Mg Capsule PO 300 mg TID JU Administration Heparin Sodium (Porcine) 5,000 unit 12/12/24 21:00 12/15/24 08:21 Heparin 5,000 Unit/Ml Inj 1 Ml SUBCUT 5,000 unit Q12H JU Administration Insulin Glargine 15 unit 12/12/24 21:00 12/15/24 04:19 Insulin Glargine 100 Units/1 Ml SUBCUT 15 unit BID JU Administration Insulin Human Lispro 0 unit 12/12/24 21:00 12/15/24 13:05 Insulin Lispro 100 Unit/1 Ml SUBCUT 2 unit WM&BEDTIME JU Administration Protocol Isosorbide Dinitrate 30 mg 12/12/24 05:00 12/15/24 16:41 Isosorbide Dinitrate 20 Mg Tablet PO 30 mg BID JU Administration Losartan Potassium 50 mg 12/13/24 05:00 12/15/24 16:42 Losartan 50 Mg Tablet PO 50 mg BID JU Administration Morphine Sulfate 2 mg 12/12/24 20:00 12/13/24 19:19 Morphine 4 Mg/Ml Sdv 1 Ml IVP 2 mg Q4H PRN Administration SEVERE PAIN Ondansetron HCl 4 mg 12/14/24 09:39 12/14/24 09:48 Ondansetron 2 Mg/Ml Sdv 2 Ml IVP 4 mg Q6H PRN Administration NAUSEA AND VOMITING Oxycodone HCl 5 mg 12/12/24 20:00 12/15/24 13:33 Oxycodone 5 Mg Ir Tab/Cap PO 5 mg Q6H PRN Administration SEVERE PAIN Polyethylene Glycol 17 gm 12/15/24 05:00 12/15/24 04:17 Polyethylene Glycol 3350 Pkt 17 Gm PO 17 gm DAILY JU Administration Potassium Chloride 20 meq 12/13/24 05:00 12/13/24 05:39 Potassium Chloride Er 20 Meq Tablet PO Not Given On Hold: 12/13/24 17:30 DAILY [facility] PFSH Acute PFSH: Medical History (Updated 12/15/24 @ 18:03 by Hima Tate DPM) CKD (chronic kidney disease) stage 3, GFR 30-59 ml/min Diabetes Epigastric pain Diverticulitis Callus of foot Onychomycosis Diabetic autonomic neuropathy Posterior tibial tendon dysfunction (PTTD) of left lower extremity Hiatal hernia Hyperlipidemia Hypertension Varicose veins of bilateral lower extremities with other complications Lower extremity edema Diastolic dysfunction Tricuspid valve regurgitation Mitral valve regurgitation Anemia EGD findings showed hiatal hernia and colonoscopy showed diverticulosis Surgical History S/P skin and subcutaneous tissue surgery Family History Father No problems noted. Mother Diabetes Chronic kidney disease (CKD) Hypertension Hyperlipidemia Sister Diabetes Stroke Hyperlipidemia Breast cancer Grandfather CAD (coronary artery disease) Lung disease Hypertension Grandmother Stroke Hypertension Denies family history of Clotting disorder Dementia Suicide Anesthesia complication Bleeding disorder Social History (Updated 12/12/24 @ 20:14 by Uli Haro MD) Smoking and tobacco/nicotine status: never used tobacco/nicotine Second hand smoke exposure: No Alcohol intake: never Substance/Drug Use: never Additional social history: She wants full code no prolong life support as discussed with myself and her daughter Nelsy on 12/12/2024 with Uli Haro MD. 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[place] [employer] Pets and animals: Yes Sexually active: No Do you think of yourself as: Straight/Heterosexual Current gender identity: Female Nilam/Voodoo: [employer] Special nilam needs: No Agree to transfusion: Yes Female Reproductive History: Para: 1 Spontaneous abortions: Yes Date of menopause: 03/09/79 Vitals/I&O/Wt Last Vital Signs Temp 98.2 F 12/15/24 13:36 Pulse 74 12/15/24 13:36 Resp 18 12/15/24 13:36 BP 126/59 12/15/24 16:42 Pulse Ox 93 12/15/24 13:36 O2 Del Method Nasal Cannula 12/15/24 13:36 O2 Flow Rate 2 12/15/24 09:14 FiO2 2 12/13/24 15:03 1012/15/24 12/15/24 06:59 14:59 22:59 Intake Total 480 / 480 Output Total 1000 / 1000 Balance -1000 / -520 480 / 480 Weight last 48 hrs Weight 230 lb Weight 230 lb Physical Exam Const: COMMON NORMALS: no acute distress, patient oriented x3 and alert HENMT: COMMON NORMALS: normocephalic HEAD & SCALP: normocephalic Eye: COMMON NORMALS: Equal, round and reactive pupils present, EOMs intact bilaterally and conjunctivae normal CONJUNCTIVA: Yes conjunctivae normal PUPIL: Yes Equal, round and reactive pupils present Chest: CHEST: Yes Symmetrical chest wall rise Resp: COMMON NORMALS: normal respiratory effort, No use of accessory muscles and clear to auscultation bilaterally EFFORT & INSPECTION: Yes able to speak in complete sentences and Yes symmetric chest movement AUSCULTATION: clear to auscultation bilaterally Cardio: COMMON NORMALS: regular rate, regular rhythm, No murmurs present (Cardio) and Peripheral pulses 2+ throughout RATE: regular rate RHYTHM: regular rhythm PERIPHERAL PULSES: Peripheral pulses 2+ throughout Extremity: COMMON NORMALS: capillary refill normal, no calf tenderness and no pedal edema (Focal edema right ankle medial and lateral malleolus) GENERAL: Yes edema LEFT LOWER EXTREMITY: Yes ankle joint (Pain at medial and lateral malleolus.) Left ankle: Yes inspection (No abrasion or laceration), Yes palpation (Pain to palpation medial and lateral malleolus.), Yes ROM (Guarded secondary to pain), Yes neurovascular exam (Dorsalis pedis and posterior tibial arteries palpable) and Yes other Neuro: COMMON NORMALS: patient oriented x3 SENSORIUM/ORIENTATION: Yes alert Psych: COMMON NORMALS: mental status grossly normal and cooperative Skin: COMMON NORMALS: no wounds GENERAL SKIN EXAM: no erythema TRAUMA: abrasion HAIR: general thinning Data 12/13/24 05:41 12/15/24 04:48 A&P Assessment and plan 1. Closed displaced pilon fracture of left tibia, initial encounter: 2. Other closed fracture of distal end of left fibula, initial encounter: 3. Diabetic peripheral neuropathy associated with type 2 diabetes mellitus: Plan: N.p.o. at midnight Nonweightbearing anticipated for the next 6 to 8 weeks left lower extremity, may toe-touch with assistance for transfers Scheduled for removal of external fixator and tibial talocalcaneal intramedullary nail tomorrow 12/16/2024 PDMP PDMP Reviewed: Not Reviewed Coding Level of Care Code Acute Code for Chg Fwd Diagnoses Closed displaced pilon fracture of left tibia, initial encounter S82.872A Encounter type: initial encounter Fracture type: closed Fracture alignment: displaced Other closed fracture of distal end of left fibula, initial encounter S82.832A Encounter type: initial encounter Fracture morphology: other fracture Diabetic peripheral neuropathy associated with type 2 diabetes mellitus E11.42
[2024-12-16] VITALS (23 sets, daily range): BP systolic 106–130; BP diastolic 43–75; PULSE 59–77; RESP 12–20; TEMP 36.5–37; O2SAT 82–97
[2024-12-16] MEDS: oxyCODONE 5 mg IR Tab/Cap PO ×2 (01:57→23:22)
[2024-12-16] MEDS: polyethylene glycol 3350 Pkt 17 gm PO (05:10)
[2024-12-16] MEDS: insulin glargine 100 units/1 mL 15 UNIT SUBCUT ×2 (05:11→15:56)
--- NOTE | 2024-12-16 09:00 | P.ANESASSM_ITS ---
Pre-Anesthetic Assessment Height/Weight: Height 1.65 m Weight 103.873 kg Temp Pulse Resp BP Pulse Ox O2 Del Method O2 Flow Rate 98.4 F 66 20 H 111/54 96 Nasal Cannula 3 12/16/24 08:38 12/16/24 08:38 12/16/24 08:38 12/16/24 08:38 12/16/24 08:38 12/16/24 08:38 12/16/24 08:38 FiO2 2 12/13/24 15:03 Preop Diagnosis: Left pilon and distal fibular fracture. Operation Date: 12/13/24 12:00 Proposed Procedures p Application External Fixator Ankle/Foot External Fixator Ankle(Left) - Scooter Gaitan DPM Operation Date: 12/16/24 09:30 Proposed Procedures p Left ankle joint and subtalar joint fusion(Left) - Hima Tate DPM s Intramedullary Nailing Lower Extremity(Left) - Hima Tate DPM Familial anesthetic complications: none Was Beta Jenny taken within 24 hours: N/A Was Clonidine taken within 24 hours: N/A Last intake: Intake Last Liquid Date 12/15/24 Last Liquid Time 05:00 Last Solid Date 12/15/24 Last Solid Time 05:00 Social No alcohol and No tobacco Exam alert, oriented x 3, clear to auscultation bilaterally and regular rate & rhythm CV/HEM Congestive Heart Failure and Hypertension MVR, TVR (mild) Chronic Renal Insufficiency Metabolic Diabetes Mellitus Anesthetic Plan ASA status: 3 Anesthesia: General and Regional (specify below) Risk of > 500 ml blood loss (7ml/kg in children): No Medications/Allergies Home Medications ?Medication ?Instructions ?Recorded ?Confirmed ?Last Taken ?Type gabapentin 300 mg capsule 300 mg PO TID 03/14/1912/1312/12/24 09:00 History metformin 500 mg tablet 500 mg PO BID 03/14/1912/1312/12/24 08:00 History ferrous sulfate 325 mg (65 mg 325 mg PO DAILY PRN iron 02/04/21 12/13/24 12/12/24 08:00 History iron) tablet carvedilol 12.5 mg tablet 12.5 mg PO BID #180 tabs 09/2612/13/24 12/12/24 08:30 Rx valsartan 160 mg tablet 160 mg PO BID 12/14/21 10/07 /25 10/06/25 09:00 History insulin glargine 100 unit/mL (3 15 unit SUBCUT BID 12/13/24 12/12/24 08:00 History mL) subcutaneous pen (Lantus Solostar U-100 Insulin) ezetimibe 10 mg tablet 10 mg PO DAILY 02/07/2209/3012/12/24 08:30 History amlodipine 5 mg tablet 5 mg PO DAILY 05/25/2412/1312/12/24 08:00 History furosemide 40 mg tablet 40 mg PO DAILY 05/25/2409/3012/12/24 08:00 History isosorbide dinitrate 30 mg tablet See Rx Instructions .Route 11/14/24 12/13/24 12/12/24 09:00 Rx .COMPLEX #180 tabs albuterol sulfate 90 mcg/actuation See Rx Instructions .Route .COMPLEX 12/13/24 12/13/24 Unknown History aerosol inhaler ascorbic acid (vitamin C) 500 mg 500 mg PO DAILY 12/1312/13/24 12/12/24 09:00 History tablet (Vitamin C) docusate sodium 50 mg capsule 50 mg PO DAILY PRN Const ipation 12/13/24 12/13/24 Unknown History pantoprazole 40 mg tablet,delayed 40 mg PO DAILY 12/1312/13/24 12/12/24 09:00 History release Allergies Allergy/AdvReac Type Severity Reaction Status Date / Time cimetidine (From Tagamet) Allergy Severe Suicidal Verified 07/04/24 07:37 [facility] ([facility] AdvReac Mild Unknown Verified 07/04/24 07:37 Current Medications Generic Name Dose Route Start Last Admin Trade Name Freq PRN Reason Stop Dose Admin Acetaminophen 650 mg 12/12/24 20:00 12/15/24 16:41 Acetaminophen 325 Mg Tablet PO 650 mg On Hold: 12/16/24 08:36 Q6H PRN Administration Comment: Order held by Process Mild/Mod Pain Or Temp >/= 101 Transfer Carvedilol 12.5 mg 12/13/24 05:00 12/16/24 05:10 Carvedilol 12.5 Mg Tablet PO 12.5 mg On Hold: 12/16/24 08:36 BID [facility] Administration Comment: Order held by Process Transfer Docusate Sodium 100 mg 12/13/24 05:00 12/16/24 05:10 Docusate Sodium 100 Mg Capsule PO 100 mg On Hold: 12/16/24 08:36 BID JU Administration Comment: Order held by Process Transfer Ezetimibe 10 mg 12/13/24 05:00 12/16/24 05:10 Ezetimibe 10 Mg Tablet PO 10 mg On Hold: 12/16/24 08:36 DAILY [facility] Administration Comment: Order held by Process Transfer Furosemide 40 mg 12/16/24 05:00 12/16/24 05:10 Furosemide 40 Mg Tablet PO 40 mg On Hold: 12/16/24 08:36 DAILY [facility] Administration Comment: Order held by Process Transfer Gabapentin 300 mg 12/12/24 21:00 12/16/24 05:10 Gabapentin 300 Mg Capsule PO 300 mg On Hold: 12/16/24 08:36 TID [facility] Administration Comment: Order held by Process Transfer Heparin Sodium (Porcine) 5,000 unit 12/12/24 21:00 12/16/24 08:03 Heparin 5,000 Unit/Ml Inj 1 Ml SUBCUT Not Given On Hold: 12/16/24 08:36 Q12H [facility] Comment: Order held by Process Transfer Insulin Glargine 15 unit 12/12/24 21:00 12/16/24 05:11 Insulin Glargine 100 Units/1 Ml SUBCUT 15 unit On Hold: 12/16/24 08:36 BID [facility] Administration Comment: Order held by Process Transfer Insulin Human Lispro 0 unit 12/12/24 21:00 12/16/24 07:09 Insulin Lispro 100 Unit/1 Ml SUBCUT Not Given On Hold: 12/16/24 08:36 WM&BEDTIME [facility] Comment: Order held by Process Protocol Transfer Isosorbide Dinitrate 30 mg 12/12/24 05:00 12/16/24 05:10 Isosorbide Dinitrate 20 Mg Tablet PO 30 mg On Hold: 12/16/24 08:36 BID [facility] Administration Comment: Order held by Process Transfer Losartan Potassium 50 mg 12/13/24 05:00 12/16/24 05:10 Losartan 50 Mg Tablet PO 50 mg On Hold: 12/16/24 08:36 BID JU Administration Comment: Order held by Process Transfer Morphine Sulfate 2 mg 12/12/24 20:00 12/13/24 19:19 Morphine 4 Mg/Ml Sdv 1 Ml IVP 2 mg On Hold: 12/16/24 08:36 Q4H PRN Administration Comment: Order held by Process SEVERE PAIN Transfer Ondansetron HCl 4 mg 12/14/24 09:39 12/14/24 09:48 Ondansetron 2 Mg/Ml Sdv 2 Ml IVP 4 mg On Hold: 12/16/24 08:36 Q6H PRN Administration Comment: Order held by Process NAUSEA AND VOMITING Transfer Oxycodone HCl 5 mg 12/12/24 20:00 12/16/24 01:57 Oxycodone 5 Mg Ir Tab/Cap PO 5 mg On Hold: 12/16/24 08:36 Q6H PRN Administration Comment: Order held by Process SEVERE PAIN Transfer Polyethylene Glycol 17 gm 12/15/24 05:00 12/16/24 05:10 Polyethylene Glycol 3350 Pkt 17 Gm PO 17 gm On Hold: 12/16/24 08:36 DAILY JU Administration Comment: Order held by Process Transfer Potassium Chloride 20 meq 12/13/24 05:00 12/13/24 05:39 Potassium Chloride Er 20 Meq Tablet PO Not Given On Hold: 12/13/24 17:30 DAILY [facility] Anesthesia Medical History (Updated 12/15/24 @ 18:03 by Hima Tate DPM) CKD (chronic kidney disease) stage 3, GFR 30-59 ml/min Diabetes Epigastric pain Diverticulitis Callus of foot Onychomycosis Diabetic autonomic neuropathy Posterior tibial tendon dysfunction (PTTD) of left lower extremity Hiatal hernia Hyperlipidemia Hypertension Varicose veins of bilateral lower extremities with other complications Lower extremity edema Diastolic dysfunction Tricuspid valve regurgitation Mitral valve regurgitation Anemia EGD findings showed hiatal hernia and colonoscopy showed diverticulosis Surgical History S/P skin and subcutaneous tissue surgery Family History Father No problems noted. Mother Diabetes Chronic kidney disease (CKD) Hypertension Hyperlipidemia Sister Diabetes Stroke Hyperlipidemia Breast cancer Grandfather CAD (coronary artery disease) Lung disease Hypertension Grandmother Stroke Hypertension Denies family history of Clotting disorder Dementia Suicide Anesthesia complication Bleeding disorder Social History (Updated 12/12/24 @ 20:14 by Uli Haro MD) Smoking and tobacco/nicotine status: never used tobacco/nicotine Second hand smoke exposure: No Alcohol intake: never Substance/Drug Use: never Additional social history: She wants full code no prolong life support as discussed with myself and her daughter Nelsy on 12/12/2024 with Uli Haro MD. 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[employer] Pets and animals: Yes Sexually active: No Do you think of yourself as: Straight/Heterosexual Current gender identity: Female Nilam/Anabaptist: Yazidi of [place] Special nilam needs: No Agree to transfusion: Yes Female Reproductive History Para: 1 Spontaneous abortions: Yes Date of menopause: 03/09/79 Data Anesthesia 12/13/24 05:41 12/15/24 04:48 BMP 12/15/24 04:48 Sodium 138 Potassium 4.6 Chloride 98 Carbon Dioxide 31 H BUN 46 H Creatinine 1.9 H Glucose 130 H Calcium 8.9 Cardiac Studies: 2 Echocardiogram 09/11/22 Echocardiogram Ultrasound 03/11/19 Anesthesia Procedures Nerve Block Nerve Block 1: Main Anesthesia: general anesthesia Time Out Performed: Yes Consent: requested by attending/covering physician, from patient, from other, risks and benefits reviewed and patient agrees to proceed Nerve block location: popliteal (L) Anesthesia monitors applied: pulse oximetry, EKG, BP cuff and oxygen Nerve block position: supine Anesthetic Used: ropivicaine 0.5% (20 ml) and with decadron (4 mg) Ultrasound used to: recognize landmarks Interscalene/Femoral BLK: 4 stimuplex 21 g needle used for position and inplane approach, visualize local anesthetic spread and no vascular puncture identified Injection: neg aspiration of heme Patient Tolerated Procedure: well Complications: none Nerve Block 2: Main Anesthesia: general anesthesia Time Out Performed: Yes Consent: requested by attending/covering physician, from patient, from other, risks and benefits reviewed and patient agrees to proceed Nerve block location: adductor canal (L) Anesthesia monitors applied: pulse oximetry, EKG, BP cuff and oxygen Nerve block position: supine Anesthetic Used: ropivicaine 0.5% (10 ml) Ultrasound used to: recognize landmarks and visualize and ID femerol nerve Nerve Stimulator Used?: No Interscalene/Femoral BLK: 4 stimuplex 21 g needle used for position and inplane approach, visualize local anesthetic spread and no vascular puncture identified Injection: neg aspiration of heme Patient Tolerated Procedure: well Complications: none Additional Comments: Performed by Johnathon MILTON under supervision
--- NOTE | 2024-12-16 09:05 | PC.NURSE ---
0903 Popliteal and Aductor cannal nerve block performed by Dr. López and student Mahad Hernandez. 0.5% Ropivicaine 25ml (15ml in popliteal, 10ml in aductor) and Decadron 4mg injected. Vital signs stable throughout procedure.
--- NOTE | 2024-12-16 11:54 | P.BOP_ITS ---
Date of Procedure: 05/22/23 Surgeon: Hima Tate DPM [facility] Case Manager(s): Sylvia Procedure(s) performed: Removal of external fixator and tibial talocalcaneal arthrodesis left lower extremity with intramedullary nail Findings of the procedure(s): None Estimated blood loss: 25 mL Specimen(s) removed: None Post-operative diagnosis: Left pilon fracture
--- NOTE | 2024-12-16 11:54 | PM.OP ---
Operative Report Date of procedure: December 16, 2024 Pre-op diagnosis: Left pilon fracture Post-op diagnosis: Left pilon fracture Left ankle equinus Post-op findings: Significant left ankle equinus impeding neutral ankle joint positioning during fixation required lengthening. Procedure done: 1) removal of external fixator left lower extremity. CPT code 81485 2) open reduction internal fixation left pilon fracture. CPT code 01665 3) left Achilles lengthening. CPT code 24361 Implants: [place] intramedullary nail active core 200 mm with 7.2 millimeter screw x 2 and 5 mm screw x 2, 3-0 nylon, 4 nylon Specimens removed/disposition: None Pathology: None Surgeon: Hima Tate DPM Technical Applications Specialist: Sylvia Estimated blood loss: 25 mL 1 hour and 26 minutes IV fluids: See intraoperative documentation Urine output: None Complications: None Brief History: 74-year-old female fell through floor at home sustained a dislocated pilon fracture underwent closed reduction and application of external fixator for staged ORIF with intramedullary nailing. I reviewed at length with the patient, the risks, potential complications, benefits, alternatives, expectations, and typical outcomes associated with the surgery. The risks and potential complications were explained in detail, including but not limited to infection, wound dehiscence or soft tissue complications, bleeding and hematoma, chronic edema, neuritis or nerve damage producing numbness or chronic pain, CRPS, failure to relieve pain or worsening pain, thick / painful / unsightly scar, limited motion / stiffness, malposition, delayed union, malunion, or nonunion, fracture, reaction to implants, anesthetic complications, venous thromboembolism, and deformity recurrence. I discussed the notion of no regrets with the patient as it pertains to complications and outcomes. The patient seemed to understand the nature of the proposed care and required convalescence. They asked appropriate questions, answered to their satisfaction. They are aware no guarantees can be made as to a satisfactory outcome and they understand there may be other possible unforeseen complications or outcomes not listed here that will be treated accordingly if they arise. There were no written or implied guarantees given to the patient. They gave informed consent to proceed. Procedure: Under mild sedation the patient was brought to the operating room and positioned onto the operating table in supine position. A timeout was performed. Anesthesia was administered by the anesthesia service. Of note left popliteal block and adductor block performed preoperatively per anesthesia. Well-padded pneumatic tourniquet applied to the left high thigh. The left lower extremity was then scrubbed, prepped and draped utilizing normal aseptic technique. External fixator was removed both tibial pins, first metatarsal pin and trans calcaneal pin and all couplers and rods as well as post removed and passed from the field. The left lower extremity was then once again scrubbed, prepped and draped utilizing normal aseptic technique, left foot and ankle were exanguinated with an Esmarch bandage and tourniquet inflated to 250 mmHg. Attention was directed to the left ankle which demonstrated gross instability due to pilon fracture, fracture was reduced and stabilized with tibial talocalcaneal intramedullary nail provided by Frida Rubio and dynamic compression state. Entry point at the central heel favoring slight lateral to midline in position the ankle joint into neutral position was futile due to underlying equinus deformity, this impeded reduction and neutral positioning required for fixation necessitating Achilles tendon lengthening which was performed with a #15 blade this was a triple hemisection percutaneous lengthening with increased dorsiflexion appreciated after release the 3 incisions were flushed with saline and closed with 4-0 nylon and ankle joint dorsiflexion was unable to be obtained beyond neutral approximately 5 degrees thus allowing fixation of the fracture. Standard entry point in the calcaneus transversing the talus and mid tibia confirmed on AP oblique and lateral views with C arm followed by drilling and step reamer for appropriately fitting intramedullary marcelle placed without regular per manufacture recommendation and technique with excellent bony apposition and compression noted at the fracture sites and maintained reduction, fixated with 7.2 mm calcaneal screw x 2 not violating calcaneocuboid joint and fixated in the distal tibia with 5 mm screw x 2 with excellent bony apposition and compression. Final imaging consisting of AP oblique and lateral view confirmed excellent placement of hardware and stabilization of the fracture. The incisions were closed with 3-0 and 4-0 nylon. The incisions were then dressed with Xeroform, sterile 4 x 4 gauze, Kerlix and a well-padded fiberglass short leg cast applied. Tourniquet was deflated and a prompt hyperemic response is noted to the distal digits of the left foot. Patient tolerated the procedure and anesthesia well and was transferred to the PACU with vital signs stable and vascular status intact. Following a period of postoperative monitoring she will be transferred back to the floor.
--- NOTE | 2024-12-16 12:35 | ANE.PACU2 ---
Inpatient post-anesthesia follow up: Airway intact: Yes Vital signs: Temperature 97.7 F Pulse Rate 74 Respiratory Rate 16 Blood Pressure 124/63 Pulse Oximetry 97 Oxygen Delivery Me thod Nasal Cannula Oxygen Flow Rate 2 Fraction of Inspir ed Oxygen 2 Hydration adequate: Yes Nausea and vomiting: No Pain level: 1 Mental status: Baseline
--- NOTE | 2024-12-16 12:39 | PC.NURSE ---
Pt to floor. vs bp-112/48, p 70, sat -95%, t-97.7 oral, resp- 16 No complaints of pain, daughter at bedside.
--- NOTE | 2024-12-16 13:56 | PC.SOCIAL ---
IMM Update pg 2 of IMM updated and reviewed w/ patient. Copy provided and copy dated, initialed and placed in chart.
--- NOTE | 2024-12-16 14:56 | PC.OT ---
Pt on hold 12.16.24 due to procedure being completed; will attempt again for OT tx another time.
--- NOTE | 2024-12-16 16:24 | XRR_ITS ---
PROCEDURE INFORMATION: Exam: XR Left Ankle Exam date and time: 12/16/2024 6:24 PM Age: 74 years old Clinical indication: Screening exam; Post op; Prior surgery; Surgery date: Post-operative (0-2 days); Surgery type: Displaced FX of lt ankle TECHNIQUE: Imaging protocol: Radiologic exam of the left ankle. Views: 3 or more views. COMPARISON: CR XR ankle LT min 3V* [id number] 12/13/2024 1:27 PM FINDINGS: Bones/joints: Interval intramedullary fixation marcelle and screws distal tibia, hindfoot to mortise. Hardware intact with ankle alignment. Redemonstration of distal tibial medial malleolar fracture that is minimally displaced as well as minimally displaced distal fibular fracture. Moderate enthesophyte inferior calcaneus. Soft tissues: Normal. Other findings: Cast material obscures detail. XR/XR ankle LT min 3V* [id number] IMPRESSION: 1. Interval intramedullary fixation marcelle and screws distal tibia, hindfoot to mortise. Hardware intact with ankle alignment. 2. Redemonstration of distal tibial medial malleolar fracture that is minimally displaced as well as minimally displaced distal fibular fracture. 3. Cast material obscures detail.
--- NOTE | 2024-12-16 18:22 | P.PN_ITS ---
Subjective 2 Subjective: 74-year-old female states she had a small bowel movement but feels the urge. She is supposed open reduction internal fixation today of her left ankle fracture by Dr. Tate. She states she feels less pain. Plan is for her to go to [facility] tomorrow. Patient accompanied by her daughter Vitals/I&O/Wt Last Vital Signs Temp 97.7 F 12/16/24 15:05 Pulse 71 12/16/24 15:25 Resp 18 12/16/24 15:18 BP 116/58 12/16/24 15:05 Pulse Ox 96 12/16/24 15:18 O2 Del Method Nasal Cannula 12/16/24 15:18 O2 Flow Rate 1 12/16/24 15:18 FiO2 2 12/13/24 15:03 12/16/24 12/16/24 12/16/24 06:59 14:59 22:59 Intake Total 50 / 50 240 / 290 Output Total Balance 240 / 265 Weight last 48 hrs Weight 103.873 kg Weight 104.326 kg Physical Exam 2 Narrative: General Well-developed obese female in no acute cardiopulmonary stress Neck no bruits CV regular rate and rhythm Lungs clear to auscultation bilaterally Abdomen positive bowel tones soft obese nontender Calves right no edema, left side in cast Left foot she has adequate flexion extension of the big toe and gross sensation is intact. Right heel is not in a heel protector Skin warm and dry Mentation alert and oriented pleasant cooperative Data 12/13/24 05:41 12/15/24 04:48 A&P Assessment and plan 1. Trimalleolar fracture of left ankle: Open reduction internal fixation completed start apixaban 2.5 mg twice daily for 30 days 2. Diabetes: As above plus sliding scale insulin low scale. Continue with Lantus 15 units subcu twice daily 3. CKD (chronic kidney disease) stage 3, GFR 30-59 ml/min: Do not prescribe NSAIDs. Metformin should be stopped forever due to GFR of only 33 and below 50 Stop amlodipine for now. Decrease furosemide to once a day continue off potassium for now 4. Primary hypertension: As above 5. Right foot pain: Plain films showed right foot no fracture. Will start heel protector right foot PDMP PDMP Reviewed: Not Reviewed Attestations 2 Medical Necessity Statement*: Patient caroline in the hospital for recovery overnight and anticipate discharge to [facility] tomorrow Coding Level of Care Code 21681 Diagnoses Trimalleolar fracture of left ankle S82.852A Diabetes E11.9 CKD (chronic kidney disease) stage 3, GFR 30-59 ml/min N18.30 Primary hypertension I10 Hypertension type: primary hypertension Right foot pain M79.671 Time Spent (min) 25
[2024-12-16] MEDS: heparin 5,000 unit/mL INJ 1 mL 5000 UNIT SUBCUT (20:50)
[2024-12-16] MEDS: ondansetron 2 mg/ML SDV 2 mL 4 MG IVP (23:22)
[2024-12-17] VITALS (11 sets, daily range): BP systolic 106–145; BP diastolic 51–73; PULSE 63–74; RESP 16–19; TEMP 36.5–36.9; O2SAT 91–96
[2024-12-17 04:38] LABS: Hematocrit 24.6 % (36-47); Hemoglobin 7.80 g/dL (11.27-16.99); Mean Corpuscular HGB Conc 31.7 g/dL (30-55); Mean Corpuscular Hemoglobin 29.2 pg (27-33); Mean Corpuscular Volume 92.1 fl (85-98); Nucleated Red Blood Cells % 0 %; Platelet Count 182 10^3/cmm (157-399); Red Blood Count 2.67 10^6/uL (3.85-5.65); White Blood Count 8.38 10^3/uL (3.29-11.43)
[2024-12-17 04:58] LABS: Anion Gap 14.0 (5-19); Blood Urea Nitrogen 51 mg/dL (8-23); Calcium 8.4 mg/dL (8.5-10.5); Carbon Dioxide 30 mmol/L (22-29); Chloride 92 mmol/L (98-107); Glucose 240 mg/dL (65-115); Osmolality Calculated 294 mOsm/kg (285-295); Potassium 5.0 mmol/L (3.5-5.1); Sodium 131 mmol/L (136-145)
[2024-12-17 05:03] LABS: Creatinine Clr Calc Pharmacy 37.0060
[2024-12-17] MEDS: polyethylene glycol 3350 Pkt 17 gm PO (05:18)
[2024-12-17] MEDS: insulin glargine 100 units/1 mL 15 UNIT SUBCUT ×2 (05:18→17:40)
--- NOTE | 2024-12-17 08:18 | P.PN_ITS ---
Subjective 2 Subjective: Patient seen bedside this a.m., denies any pain to the left ankle, resting comfortably and eating breakfast tolerating regular diet. Is anticipating transfer to rehab facility potentially today. Vitals/I&O/Wt Last Vital Signs Temp 97.7 F 12/17/24 07:39 Pulse 71 12/17/24 07:39 Resp 18 12/17/24 07:39 BP 122/66 12/17/24 07:39 Pulse Ox 93 12/17/24 07:39 O2 Del Method Nasal Cannula 12/17/24 07:39 O2 Flow Rate 1 12/16/24 20:50 FiO2 2 12/13/24 15:03 12/16/24 12/17/24 12/17/24 22:59 06:59 14:59 Intake Total 240 / 290 Output Total 400 / 425 Balance -160 / -135 Weight last 48 hrs Weight 236 lb 12.423 oz Weight 229 lb Physical Exam 2 Narrative: GENERAL: Patient is alert and oriented ?3 and in no acute distress. The following is a focused left lower extremity exam. VASCULAR: Capillary refill time less than 3 seconds to the distal hallux bilaterally. Calf is supple and nontender proximally and distally. NEUROLOGICAL: Protective sensation diminished due to underlying neuropathy and popliteal block. DERMATOLOGICAL: Left short leg cast is clean, dry and intact without strikethrough bleeding. MUSCULOSKELETAL: Deferred due to postoperative state. Data 12/17/24 02:31 12/17/24 02:31 A&P Assessment and plan 1. Closed displaced pilon fracture of left tibia, initial encounter: 2. Other closed fracture of distal end of left fibula, initial encounter: 3. Diabetic peripheral neuropathy associated with type 2 diabetes mellitus: Plan: 74-year-old female with left pilon fracture 1 day status post intramedullary nailing performed 12/16/2024 Discharge planning at this time, anticipating transfer to long term for rehab. Appreciate recommendations for anticoagulation per hospitalist Podiatry sent 7-day supply pain medication hydrocodone 5/325 to be taken judiciously as needed for pain Nonweightbearing left foot Short leg cast will remain intact and kept clean and dry for the next 3 weeks will follow-up in podiatry clinic 01/05/2025 at 1:00 PM for cast change and suture removal. Anticipating 6 weeks of nonweightbearing PDMP PDMP Reviewed: Not Reviewed Attestations 2 Medical Necessity Statement*: Deferred to primary Coding Level of Care Code Acute Code for Chg Fwd Diagnoses Closed displaced pilon fracture of left tibia, initial encounter S82.872A Encounter type: initial encounter Fracture alignment: displaced Fracture type: closed Other closed fracture of distal end of left fibula, initial encounter S82.832A Encounter type: initial encounter Fracture morphology: other fracture Diabetic peripheral neuropathy associated with type 2 diabetes mellitus E11.42
[2024-12-17] MEDS: heparin 5,000 unit/mL INJ 1 mL 5000 UNIT SUBCUT ×2 (08:59→20:54)
--- NOTE | 2024-12-17 10:51 | XRR_ITS ---
PROCEDURE INFORMATION: Exam: XR Chest Exam date and time: 12/17/2024 2:05 PM Age: 74 years old Clinical indication: Screening exam; Other screening; Additional info: Reflux and hiatal hernia, please give 100 cc gastrografin prior to chest x-ray; Reflux/hiatal hernia; Instructed to orally administer 100cc gastrograffin and take cxr 30 min later to eval for reflux per Dr. Haro. TECHNIQUE: Imaging protocol: Radiologic exam of the chest. Views: 1 view. COMPARISON: CR XR chest 1V portable [id number] 12/12/2024 4:34 PM FINDINGS: Lungs: Minimal linear atelectasis or scar at the left base. Pleural spaces: Unremarkable. No pleural effusion. No pneumothorax. Heart/Mediastinum: No contrast is seen in the upper abdomen or esophagus. Bones/joints: Unremarkable. XR/XR chest 1V portable [id number] IMPRESSION: Minimal linear scar or atelectasis at the left base. No contrast is seen at this time.
--- NOTE | 2024-12-17 10:57 | P.PN_ITS ---
Subjective 2 Subjective: 74-year-old female states she feels full in the esophagus like food is getting stuck and not going down. She still feels full from breakfast. Patient reports history of hiatal hernia. Looks like she takes proton pump inhibitor at home which has been continued here. Patient has been supine more due to left ankle fracture and external fixation undergoing internal fixation yesterday. She does not yet have authorization from her insurance to be transferred to [facility] today. Additionally patient has only had 1 bowel movement and feels constipated. Vitals/I&O/Wt Last Vital Signs Temp 97.7 F 12/17/24 07:39 Pulse 69 12/17/24 08:40 Resp 18 12/17/24 08:40 BP 122/66 12/17/24 07:39 Pulse Ox 93 12/17/24 08:40 O2 Del Method Nasal Cannula 12/17/24 08:40 O2 Flow Rate 1 12/17/24 08:40 FiO2 2 12/13/24 15:03 12/16/24 12/17/24 12/17/24 22:59 06:59 14:59 Intake Total 240 / 290 480 / 480 Output Total 400 / 425 Balance -160 / -135 480 / 480 Weight last 48 hrs Weight 107.4 kg Weight 103.873 kg Physical Exam 2 Narrative: General Well-developed obese female in no acute cardiopulmonary stress Neck no bruits CV regular rate and rhythm Lungs clear to auscultation bilaterally Abdomen positive bowel tones soft obese nontender, abdomen is tympanitic to percussion no rebound no epigastric pain but she does feel full with exam and pressure Calves right no edema, left side in cast Left foot she has adequate flexion extension of the big toe and gross sensation is intact. Right heel is not in a heel protector Skin warm and dry Mentation alert and oriented pleasant cooperative Data 12/17/24 02:31 12/17/24 02:31 A&P Assessment and plan 1. Trimalleolar fracture of left ankle: Open reduction internal fixation completed start apixaban 2.5 mg twice daily for 30 days 2. Diabetes: As above plus sliding scale insulin low scale. Continue with Lantus 15 units subcu twice daily 3. CKD (chronic kidney disease) stage 3, GFR 30-59 ml/min: Do not prescribe NSAIDs. Metformin should be stopped forever due to GFR of only 33 and below 50 Stop amlodipine for now. Decrease furosemide to once a day. Sodium 130 potassium 5 despite being off potassium. Potassium will be discontinued indefinitely 4. Primary hypertension: As above 5. Right foot pain: Plain films showed right foot no fracture. Will start heel protector right foot 6. Hiatal hernia with gastroesophageal reflux: Now the patient has had external fixation removed and has had a cast to left lower leg patient should have meals upright and remain upright to current 45 degrees with leg elevation. Will give 100 cc Gastrografin to did plain film of the chest. We are looking for possible delayed esophageal transit or incomplete emptying PDMP PDMP Reviewed: Not Reviewed Attestations 2 Medical Necessity Statement*: Patient caroline in the hospital awaiting above radiographic exam and authorization from insurance to transfer to [facility] for rehab anticipated tomorrow Coding Level of Care Code 38952 Diagnoses Trimalleolar fracture of left ankle S82.852A Diabetes E11.9 CKD (chronic kidney disease) stage 3, GFR 30-59 ml/min N18.30 Primary hypertension I10 Hypertension type: primary hypertension Right foot pain M79.671 Hiatal hernia with gastroesophageal reflux K44.9; K21.9 Time Spent (min) 35
[2024-12-17] MEDS: oxyCODONE 5 mg IR Tab/Cap PO (23:45)
[2024-12-18] VITALS (10 sets, daily range): BP systolic 110–126; BP diastolic 55–62; PULSE 59–86; RESP 17–18; TEMP 36.4–36.9; O2SAT 93–98
[2024-12-18] MEDS: insulin glargine 100 units/1 mL 15 UNIT SUBCUT ×2 (05:24→16:15)
[2024-12-18] MEDS: polyethylene glycol 3350 Pkt 17 gm PO (05:26)
[2024-12-18 05:41] LABS: Hematocrit 23.0 % (36-47); Hemoglobin 7.40 g/dL (11.27-16.99); Mean Corpuscular HGB Conc 32.2 g/dL (30-55); Mean Corpuscular Hemoglobin 30.0 pg (27-33); Mean Corpuscular Volume 93.1 fl (85-98); Nucleated Red Blood Cells % 0 %; Platelet Count 193 10^3/cmm (157-399); Red Blood Count 2.47 10^6/uL (3.85-5.65); White Blood Count 8.54 10^3/uL (3.29-11.43)
[2024-12-18 05:50] LABS: Anion Gap 12.6 (5-19); Blood Urea Nitrogen 51 mg/dL (8-23); Calcium 8.7 mg/dL (8.5-10.5); Carbon Dioxide 31 mmol/L (22-29); Chloride 96 mmol/L (98-107); Glucose 107 mg/dL (65-115); Osmolality Calculated 294 mOsm/kg (285-295); Potassium 4.6 mmol/L (3.5-5.1); Sodium 135 mmol/L (136-145)
[2024-12-18 05:51] LABS: Creatinine Clr Calc Pharmacy 34.8292
[2024-12-18] MEDS: heparin 5,000 unit/mL INJ 1 mL 5000 UNIT SUBCUT (08:53)
--- NOTE | 2024-12-18 11:13 | P.PN_ITS ---
Subjective 2 Subjective: Patient seen bedside this a.m., denies any pain to the left ankle, resting comfortably and eating breakfast tolerating regular diet. Is anticipating transfer to rehab facility potentially today. Vitals/I&O/Wt Last Vital Signs Temp 97.5 F L 12/18/24 07:33 Pulse 61 12/18/24 07:58 Resp 18 12/18/24 07:58 BP 121/61 12/18/24 07:33 Pulse Ox 98 12/18/24 07:58 O2 Del Method Nasal Cannula 12/18/24 07:58 O2 Flow Rate 1 12/18/24 08:48 FiO2 2 12/13/24 15:03 12/17/24 12/18/24 12/18/24 22:59 06:59 14:59 Intake Total 480 / 1320 480 / 480 Balance 480 / 1320 480 / 480 Weight last 48 hrs Weight 237 lb Weight 236 lb 12.423 oz Physical Exam 2 Const: COMMON NORMALS: no acute distress, patient oriented x3 and alert HENMT: COMMON NORMALS: normocephalic HEAD & SCALP: normocephalic Eye: COMMON NORMALS: Equal, round and reactive pupils present, EOMs intact bilaterally and conjunctivae normal CONJUNCTIVA: Yes conjunctivae normal P UPIL: Yes Equal, round and reactive pupils present Chest: CHEST: Yes Symmetrical chest wall rise Resp: COMMON NORMALS: normal respiratory effort, No use of accessory muscles and clear to auscultation bilaterally EFFORT & INSPECTION: Yes able to speak in complete sentences and Yes symmetric chest movement AUSCULTATION: clear to auscultation bilaterally Cardio: COMMON NORMALS: regular rate, regular rhythm, No murmurs present (Cardio) and Peripheral pulses 2+ throughout RATE: regular rate RHYTHM: r egular rhythm PERIPHERAL PULSES: Peripheral pulses 2+ throughout Extremity: COMMON NORMALS: capillary refill normal, no calf tenderness and no pedal edema (Focal edema right ankle medial and lateral malleolus) GENERAL: Y es edema LEFT LOWER EXTREMITY: Yes ankle joint (Pain at medial and lateral malleolus.) Left ankle: Yes inspection (No abrasion or laceration), Yes palpation (Pain to palpation medial and lateral malleolus.), Yes ROM (Guarded secondary to pain), Yes neurovascular exam (Dorsalis pedis and posterior tibial arteries palpable) and Yes other Neuro: COMMON NORMALS: patient oriented x3 SENSORIUM/ORIENTATION: Yes alert Psych: COMMON NORMALS: mental status grossly normal and cooperative Skin: COMMON NORMALS: no wounds GENERAL SKIN EXAM: no erythema TRAUMA: a brasion HAIR: general thinning Data 12/18/24 05:20 12/18/24 05:20 A&P Assessment and plan 1. Closed displaced pilon fracture of left tibia, initial encounter: 2. Other closed fracture of distal end of left fibula, initial encounter: 3. Diabetic peripheral neuropathy associated with type 2 diabetes mellitus: Plan: 74-year-old female with left pilon fracture 2 days status post intramedullary nailing performed 12/16/2024 Discharge planning at this time, anticipating transfer to [facility] for rehab. Appreciate recommendations for anticoagulation per hospitalist Podiatry sent 7-day supply pain medication hydrocodone 5/325 to be taken judiciously as needed for pain Nonweightbearing left foot Short leg cast will remain intact and kept clean and dry for the next 3 weeks will follow-up in podiatry clinic 01/05/2025 at 1:00 PM for cast change and suture removal. Anticipating 6 weeks of nonweightbearing PDMP PDMP Reviewed: Last Reviewed 12/17/24 09:35 EDT by Hima Tate DPM Attestations 2 Medical Necessity Statement*: Deferred to primary Coding Level of Care Code Acute Code for Chg Fwd Diagnoses Closed displaced pilon fracture of left tibia, initial encounter S82.872A Encounter type: initial encounter Fracture alignment: displaced Fracture type: closed Other closed fracture of distal end of left fibula, initial encounter S82.832A Encounter type: initial encounter Fracture morphology: other fracture Diabetic peripheral neuropathy associated with type 2 diabetes mellitus E11.42
--- NOTE | 2024-12-18 14:55 | P.PN_ITS ---
Subjective 2 Subjective: 74-year-old female reports goo d bowel movement yesterday and today. She has her heel protector and is awaiting placement. The authorization from insurance could not be sought until 12/15/2024 after physical therapy could see her because of her nonweightbearing status prior to that. The patient does not have authorization to go to [facility] yet Vitals/I&O/Wt Last Vital Signs Temp 98.2 F 12/18/24 12:04 Pulse 62 12/18/24 12:04 Resp 18 12/18/24 12:04 BP 110/62 12/18/24 12:04 Pulse Ox 93 12/18/24 12:04 O2 Del Method Nasal Cannula 12/18/24 12:04 O2 Flow Rate 1 12/18/24 08:48 FiO2 2 12/13/24 15:03 12/17/24 12/18/24 12/18/24 22:59 06:59 14:59 Intake Total 480 / 1320 960 / 960 Balance 480 / 1320 960 / 960 Weight last 48 hrs Weight 107.501 kg Weight 107.4 kg Physical Exam 2 Narrative: General Well-developed obese female in no acute cardiopulmonary stress CV regular rate and rhythm with 3/6 systolic ejection murmur best heard at left upper sternal border Lungs clear to auscultation bilaterally Abdomen positive bowel tones soft obese nontender, Calves right no edema, left side in cast some ecchymosis and swelling in the left thigh as well as upper calf Left foot she has adequate flexion extension of the big toe and gross sensation is intact. Right heel is in a heel protector Skin warm and dry Mentation alert and oriented pleasant cooperative Data 12/18/24 05:20 12/18/24 05:20 A&P Assessment and plan 1. Trimalleolar fracture of left ankle: Open reduction internal fixation completed. Patient has been on subcu heparin here because of chronic kidney disease. Because of the hematocrit drop I have held that starting today repeat CBC in the morning I was anticipating apixaban 2.5 mg twice daily for 30 days for DVT prophylaxis. Will need to be adjusted for chronic kidney disease 2. Diabetes: As above plus sliding scale insulin low scale. Continue with Lantus 15 units subcu twice daily Patient's kidney function does not allow metformin and metformin should not be given 3. CKD (chronic kidney disease) stage 3, GFR 30-59 ml/min: Do not prescribe NSAIDs. Metformin should be stopped forever due to GFR of only 33 and below 50 Stop amlodipine for now. Decrease furosemide to once a day. Sodium 130 potassium 5 despite being off potassium. Potassium will be discontinued indefinitely 4. Primary hypertension: As above 5. Right foot pain: Plain films showed right foot no fracture. Will start heel protector right foot 6. Hiatal hernia with gastroesophageal reflux: Patient has been started on high-dose PPI and I think her symptoms were worsening because she was supine with external fixation for 3 days. X-ray yesterday following Gastrografin showed no contrast in the upper chest. Looks like things passed fine no further intervention at this time. PDMP PDMP Reviewed: Not Reviewed Attestations 2 Medical Necessity Statement*: Patient awaiting placement at [facility] potentially tomorrow if insurance approve will come through. Coding Level of Care Code 97835 Diagnoses Trimalleolar fracture of left ankle S82.852A Diabetes E11.9 CKD (chronic kidney disease) stage 3, GFR 30-59 ml/min N18.30 Primary hypertension I10 Hypertension type: primary hypertension Right foot pain M79.671 Hiatal hernia with gastroesophageal reflux K44.9; K21.9 Time Spent (min) 25
[2024-12-18] MEDS: oxyCODONE 5 mg IR Tab/Cap PO (14:59)
[2024-12-19] VITALS (7 sets, daily range): BP systolic 114–149; BP diastolic 62–73; PULSE 63–64; RESP 16–19; TEMP 36.5–36.8; O2SAT 91–96
[2024-12-19 04:06] LABS: Hematocrit 25.2 % (36-47); Hemoglobin 7.90 g/dL (11.27-16.99); Mean Corpuscular HGB Conc 31.3 g/dL (30-55); Mean Corpuscular Hemoglobin 29.3 pg (27-33); Mean Corpuscular Volume 93.3 fl (85-98); Nucleated Red Blood Cells % 0 %; Platelet Count 219 10^3/cmm (157-399); Red Blood Count 2.70 10^6/uL (3.85-5.65); White Blood Count 8.21 10^3/uL (3.29-11.43)
[2024-12-19] MEDS: insulin glargine 100 units/1 mL 15 UNIT SUBCUT (04:52)
[2024-12-19] MEDS: oxyCODONE 5 mg IR Tab/Cap PO ×2 (04:58→11:23)
--- NOTE | 2024-12-19 12:10 | P.PN_ITS ---
Subjective 2 Subjective: Patient evaluated this a.m., resting in the recliner comfortably, is present. Denies any complaints. Vitals/I&O/Wt Last Vital Signs Temp 98.2 F 12/19/24 11:06 Pulse 63 12/19/24 11:06 Resp 16 12/19/24 11:23 BP 114/69 12/19/24 11:06 Pulse Ox 91 12/19/24 11:06 O2 Del Method Room Air 12/19/24 11:06 O2 Flow Rate 1 12/18/24 19:43 FiO2 2 12/13/24 15:03 12/18/24 12/19/24 12/19/24 22:59 06:59 14:59 Intake Total 240 / 1200 1480 / 1480 Output Total 1300 / 1300 Balance -1060 / -100 1480 / 1480 Weight last 48 hrs Weight 238 lb 5.115 oz Weight 237 lb Physical Exam 2 Narrative: GENERAL: Patient is alert and oriented ?3 and in no acute distress. The following is a focused left lower extremity exam. VASCULAR: Capillary refill time less than 3 seconds to the distal hallux bilaterally. Calf is supple and nontender proximally and distally. NEUROLOGICAL: Protective sensation diminished due to underlying neuropathy and popliteal block. DERMATOLOGICAL: Left short leg cast is clean, dry and intact without strikethrough bleeding. MUSCULOSKELETAL: Deferred due to postoperative state. Data 12/19/24 02:35 12/18/24 05:20 A&P Assessment and plan 1. Closed displaced pilon fracture of left tibia, initial encounter: 2. Other closed fracture of distal end of left fibula, initial encounter: 3. Diabetic peripheral neuropathy associated with type 2 diabetes mellitus: Plan: 74-year-old female with left pilon fracture 3 days status post intramedullary nailing performed 12/16/2024 Discharge planning at this time[facility]. Appreciate recommendations for anticoagulation per hospitalist Podiatry sent 7-day supply pain medication hydrocodone 5/325 to be taken judiciously as needed for pain Nonweightbearing left foot Short leg cast will remain intact and kept clean and dry for the next 3 weeks will follow-up in podiatry clinic 01/05/2025 at 1:00 PM for cast change and suture removal. Anticipating 6 weeks of nonweightbearing PDMP PDMP Reviewed: Last Reviewed 12/19/24 15:55 EDT by Hima Tate DPM Attestations 2 Medical Necessity Statement*: Deferred to primary Coding Level of Care Code Acute Code for Chg Fwd Diagnoses Closed displaced pilon fracture of left tibia, initial encounter S82.872A Encounter type: initial encounter Fracture alignment: displaced Fracture type: closed Other closed fracture of distal end of left fibula, initial encounter S82.832A Encounter type: initial encounter Fracture morphology: other fracture Diabetic peripheral neuropathy associated with type 2 diabetes mellitus E11.42
--- NOTE | 2024-12-19 14:08 | PC.NURSE ---
This nurse called report to [facility] at 1355 and spoke with Nurse Meneses and went over patients history and current status and discharge needs. No questions at this time from Nurse Meneses. As of 140, this nurse is awaiting confirmation of transport from [facility]. Nurse Meneses said she would call back to let this know when she knows.
--- NOTE | 2024-12-19 14:45 | PC.NURSE ---
Discharge delay due to insurance complication per Rosita Ruiz RN.
--- NOTE | 2024-12-19 15:00 | PM.DCS ---
Discharge Providers Date of Admission: 12/12/24 16:33 Date of Discharge: December 19, 2024 Attending Provider at Admission: Uli Haro MD Attending Provider at Discharge: Sarah Clancy MD Primary Care Provider: BERNARDINO Corbett Diagnoses at Discharge Discharge Diagnosis 1. Closed displaced pilon fracture of left tibia, initial encounter: 2. Other closed fracture of distal end of left fibula, initial encounter: 3. Diabetic peripheral neuropathy associated with type 2 diabetes mellitus: Reason for Visit Reason for Visit: fall - left ankle deformity Hospital Course Hospital Course 74 year old female with diabetes, chronic kidney disease, DM Who fell through the laundry room floor and suffered a displaced comminuted fracture of the left ankle involving tibia and fibula. She was taken to the operating room on December 13, 2024 and initially underwent closed reduction of the left ankle with external fixator application and drainage of a fracture blister. Subsequently underwent removal of the external fixator and internalization of hardware with talar calcaneus arthrodesis and intramedullary nail placement on December 16, 2024. Patient tolerated both procedures well. Pain is currently controlled. Hospital course was notable for a brief episode of desaturation with O2 sats noted at 82% on December 16, 2024. This improved quickly with supplemental O2. Chest x-ray did not show any consolidation. She was on 2 L/min supplemental O2 initially, weaned down to 0.5 today. No known history of COPD or CHF. Patient is overall clinically stable and optimized to discharge to SNF today for continued rehab. Physical Exam Narrative: General: No acute distress, AO x3 HEENT: PERRLA, pupils bilaterally equal and reactive, pallors not present Chest: Normal vesicular breath sounds, no added sounds, equal good air entry bilaterally CVS: S1-S2 regular, no murmurs, no tachycardia, no gallops, no rubs Abdomen: Soft, nontender, no organomegaly, bowel sounds present Neuro: No focal deficits, no facial deformity, AO x3, power 5/5 in all limbs Discharge Data Studies Completed and Pending Completed Studies During Hospitalization Category Date Time Status CT ankle LT wo con* [id number] Stat Cat Scan 12/12/24 15:32 Completed XR ankle LT min 3V* [id number] Routine Exams 12/12/24 17:52 Completed XR ankle LT min 3V* [id number] Routine Exams 12/13/24 13:19 Completed XR ankle LT min 3V* [id number] Routine Exams 12/13/24 16:47 Completed XR ankle LT min 3V* [id number] Routine Exams 12/16/24 16:24 Completed XR ankle LT min 3V* [id number] Stat Exams 12/12/24 14:49 Completed XR chest 1V portable [id number] Routine Exams 12/17/24 10:51 Completed XR chest 1V portable [id number] Stat Exams 12/12/24 16:13 Completed XR foot LT min 3V* [id number] Routine Exams 12/13/24 13:19 Completed XR foot RT 2V [id number] Routine Exams 12/13/24 18:07 Completed Radiology Impressions Ankle CT 12/12/24 15:32 IMPRESSION: Severely comminuted, mildly displaced fractures of the distal tibia and fibula as detailed above Foot X-Ray 12/13/24 18:07 IMPRESSION: 1. No acute fracture or subluxation. 2. Diffuse osteopenia. Ankle X-Ray 12/16/24 16:24 IMPRESSION: 1. Interval intramedullary fixation marcelle and screws distal tibia, hindfoot to mortise. Hardware intact with ankle alignment. 2. Redemonstration of distal tibial medial malleolar fracture that is minimally displaced as well as minimally displaced distal fibular fracture. 3. Cast material obscures detail. Chest X-Ray 12/17/24 10:51 IMPRESSION: Minimal linear scar or atelectasis at the left base. No contrast is seen at this time. Laboratory Results WBC 8.21 10^3/uL (3.29-11.43) 12/19/24 02:35 RBC 2.70 10^6/uL (3.85-5.65) L 12/19/24 02:35 Hgb 7.90 g/dL (11.27-16.99) L 12/19/24 02:35 Hct 25.2 % (36-47) L 12/19/24 02:35 MCV 93.3 fl (85-98) 12/19/24 02:35 MCH 29.3 pg (27-33) 12/19/24 02:35 MCHC 31.3 g/dL (30-55) 12/19/24 02:35 RDW 12.4 % (12.1-15.1) 12/19/24 02:35 Plt Count 219 10^3/cmm (157-399) 12/19/24 02:35 MPV 10.9 fL (7.4-10.4) H 12/19/24 02:35 Neut % (Auto) 59.1 % 12/19/24 02:35 Lymph % (Auto) 27.4 % 12/19/24 02:35 Tompkins % (Auto) 10.2 % 12/19/24 02:35 Eos % (Auto) 2.2 % 12/19/24 02:35 Baso % (Auto) 0.5 % 12/19/24 02:35 Neut # (Auto) 4.85 10^3/uL (1.8-7.7) 12/19/24 02:35 Lymph # (Auto) 2.3 10^3/uL (0.8-4.8) 12/19/24 02:35 Tompkins # (Auto) 0.8 10^3/uL (0.2-0.9) 12/19/24 02:35 Eos # (Auto) 0.2 10^3/uL (0.0-0.8) 12/19/24 02:35 Baso # (Auto) 0.0 10^3/uL (0.0-0.1) 12/19/24 02:35 Nucleated RBC % (auto) 0 % 12/19/24 02:35 Nucleated RBCs # 0.0 /100WBC 12/19/24 02:35 PT 12.40 SECONDS (12.1-14.9) 12/12/24 16:20 INR 0.87 (0.8-1.2) 12/12/24 16:20 APTT 25.1 SECONDS (23.9-36.7) 12/12/24 16:20 Sodium 135 mmol/L (136-145) L 12/18/24 05:20 Potassium 4.6 mmol/L (3.5-5.1) 12/18/24 05:20 Chloride 96 mmol/L (98-107) L 12/18/24 05:20 Carbon Dioxide 31 mmol/L (22-29) H 12/18/24 05:20 Anion Gap 12.6 (5-19) 12/18/24 05:20 BUN 51 mg/dL (8-23) H 12/18/24 05:20 Creatinine 1.7 mg/dL (0.5-0.9) H 12/18/24 05:20 GFR Calculation Not Reportable 12/18/24 05:20 Glucose 107 mg/dL (65-115) 12/18/24 05:20 POC Glucose 182 mg/dL (70-110) H 12/19/24 10:35 Calculated Osmolality 294 mOsm/kg (285-295) 12/18/24 05:20 Calcium 8.7 mg/dL (8.5-10.5) 12/18/24 05:20 Total Bilirubin 0.4 mg/dL (0.15-1.2) 12/12/24 16:20 AST 13 U/L (0-32) 12/12/24 16:20 ALT 8 U/L (0-33) 12/12/24 16:20 Alkaline Phosphatase 74 U/L (35-105) 12/12/24 16:20 Total Protein 7.3 g/dL (6.6-8.7) 12/12/24 16:20 Albumin 4.2 g/dL (3.5-5.2) 12/12/24 16:20 Globulin 3.1 g/dL (1.3-4.6) 12/12/24 16:20 TSH 1.23 uIU/mL (0.27-4.20) 12/13/24 05:41 Vitals Last Vital Signs Temp 98.2 F 12/19/24 11:06 Pulse 63 12/19/24 11:06 Resp 16 12/19/24 11:23 BP 114/69 12/19/24 11:06 Pulse Ox 91 12/19/24 11:06 O2 Del Method Room Air 12/19/24 11:06 O2 Flow Rate 1 12/18/24 19:43 FiO2 2 12/13/24 15:03 Discharge Plan Discharge Patient Disposition: Xfer SNF Condition: Stable Prescriptions: New polyethylene glycol 3350 17 gram Powder In Packet 17 g PO DAILY Qty: 30 0RF hydrocodone-acetaminophen 5-325 mg tablet 1 tab PO Q6H PRN (Reason: pain) 7 Days Qty: 28 0RF Continued gabapentin 300 mg capsule 300 mg PO TID ferrous sulfate 325 mg (65 mg iron) tablet 325 mg PO DAILY PRN (Reason: iron) Deion Soljuan miguelar U-100 Insulin 100 unit/mL (3 mL) insulin pen 15 unit SUBCUT BID Rx Instructions: 30 units valsartan 160 mg tablet 160 mg PO BID ezetimibe 10 mg tablet 10 mg PO DAILY carvedilol 12.5 mg tablet 12.5 mg PO BID Qty: 180 3RF Rx Instructions: must administer with a meal/food isosorbide dinitrate 30 mg tablet See Rx Instructions .ROUTE .COMPLEX Qty: 180 3RF Dose Instruction: TAKE ONE TABLET BY MOUTH TWICE DAILY, ALLOW NITRATE-FREE INTERVAL 12-14 HOURS PER 24 HOUR PERIOD Rx Instructions: TAKE ONE TABLET BY MOUTH TWICE DAILY, ALLOW NITRATE-FREE INTERVAL 12-14 HOURS PER 24 HOUR PERIOD furosemide 40 mg tablet 40 mg PO DAILY albuterol sulfate 90 mcg/actuation HFA aerosol inhaler See Rx Instructions .ROUTE .COMPLEX Rx Instructions: INHALE 1 PUFF INTO LUNGS EVERY 6 HOURS NEEDED FOR SHORTNESS OF BREATH OR WHEEZING pantoprazole 40 mg tablet,delayed release (DR/EC) 40 mg PO DAILY ascorbic acid (vitamin C) [Vitamin C] 500 mg Tablet 500 mg PO DAILY Discontinued metformin 500 mg tablet 500 mg PO BID amlodipine 5 mg tablet 5 mg PO DAILY Colace 50 mg Capsule 50 mg PO DAILY PRN (Reason: Constipation) Discharge Order = DC NOW: Discharge Order (Routine); Ordered 12/19/24 Ordered By: Sarah Clancy Referrals: [facility] [Outside] Scooter Gaitan DPM [Physician, Podiatry] - 12/21/24 8:45 am Burgos,BERNARDINO Lewis [Primary Care Provider, Nurse Practitioner] Patient Instructions: Acute Wound Care (DC), Opioid Safety (DC), ORIF of an Ankle Fracture (DC), ORIF of an Ankle Fracture (GEN), OB Discharge Report, OB Food/Drug Interaction Guide, Opioid Safety, Post Anesthesia Care, Patient Portal & Fernando Instructions Activity Restrictions/Additional Instructions: Instructions from Dr. Tate DMichealP.Barry/podiatry - Follow-up in podiatry clinic with Dr. Tate scheduled 01/05/2025 at 1:00 PM for cast change and suture removal - Nonweightbearing 6 weeks postoperatively left foot. - Prescription for hydrocodone 5/325 mg to be taken every 6 hours as needed for pain, please contact Dr. Tate with any additional pain medicine requests. - Take anticoagulants as prescribed for potential reduction of blood clot risk. - Elevate left foot while resting. Contact Dr. Tate at podiatry clinic with any questions or concerns [phone] Discharge Attestations Time Spent in Discharge Care*: greater than 30 min Quality Metrics Clinical Quality Measures [ No reported AMI, CVA or VTE this stay] Coding Level of Care Code Acute Code for Chg Fwd Diagnoses Closed displaced pilon fracture of left tibia, initial encounter S82.873O Encounter type: initial encounter Fracture type: closed Fracture alignment: displaced Other closed fracture of distal end of left fibula, initial encounter S82.832A Encounter type: initial encounter Fracture morphology: other fracture Diabetic peripheral neuropathy associated with type 2 diabetes mellitus E11.42
== END 2024-12-19 15:55 | disposition skilled nursing facility (03) | DRG 494 ==
LOC: ER 15:37 → ER IP 16:33 → OBGYN 20:27 → MEDSURG 12-13 15:00
PROVIDERS: Podiatrist Foot & Ankle Surgery; Admitting Provider Internal Medicine; Emergency Provider Emergency Medicine; PCP Nurse Practitioner Family; Visit Provider Student in an Organized Health Care Education/Training Program
PROC: 0QSK35Z Reposition Left Fibula with External Fixation Device, Percutaneous Approach (ICD-10-PCS; principal; 2024-12-13 12:00)
PROC: 0QSH06Z Reposition Left Tibia with Intramedullary Internal Fixation Device, Open Approach (ICD-10-PCS; CPT 28725; principal; 2024-12-16 09:20)
PROC: 0QSH06Z Reposition Left Tibia with Intramedullary Internal Fixation Device, Open Approach (ICD-10-PCS; 2024-12-16 09:20)
DX: S82.872A Displaced pilon fracture of left tibia, initial encounter for closed fracture (principal); S82.832A Other fracture of upper and lower end of left fibula, initial encounter for closed fracture; W13.3XXA Fall through floor, initial encounter; Y92.008 Other place in unspecified non-institutional (private) residence as the place of occurrence of the external cause; E11.40 Type 2 diabetes mellitus with diabetic neuropathy, unspecified; E11.22 Type 2 diabetes mellitus with diabetic chronic kidney disease; I12.9 Hypertensive chronic kidney disease with stage 1 through stage 4 chronic kidney disease, or unspecified chronic kidney disease; N18.9 Chronic kidney disease, unspecified; Z79.4 Long term (current) use of insulin; Z79.84 Long term (current) use of oral hypoglycemic drugs; E78.5 Hyperlipidemia, unspecified; E66.9 Obesity, unspecified; Z68.39 Body mass index [BMI] 39.0-39.9, adult; Z75.1 Person awaiting admission to adequate facility elsewhere; K44.9 Diaphragmatic hernia without obstruction or gangrene; K21.9 Gastro-esophageal reflux disease without esophagitis; M24.572 Contracture, left ankle
CPT/HCPCS: 36415; 36416; 71045; 73610; 73620; 73630; 73700; 76000; 80048; 80053; 82962; 84443; 85025; 85610; 85730; 93005; 94640; 96372; 96374; 96375; 97162; 97167; 97530; 97535; 99285; C1713; J0690; J1100; J1171; J1644; J1815; J2270; J2371; J2405; J2704; J2795; J3010; J3490; J7030; J7613; J9999; Q9963

== ENCOUNTER → 2025-01-05 12:52 | Outpatient (BNVA) | payer MEDICARE, SELFPAY | PROVIDERS: PCP Nurse Practitioner Family; Visit Provider Podiatrist Foot & Ankle Surgery | DX: Z98.890 Other specified postprocedural states (principal); S82.872A Displaced pilon fracture of left tibia, initial encounter for closed fracture; S82.832A Other fracture of upper and lower end of left fibula, initial encounter for closed fracture; Z98.1 Arthrodesis status; X58.XXXA Exposure to other specified factors, initial encounter | CPT/HCPCS: 29405; 73610; 99024 ==

== ENCOUNTER → 2025-01-19 13:50 | Outpatient (BNVA) | payer SELFPAY | PROVIDERS: PCP Nurse Practitioner Family; Visit Provider Podiatrist Foot & Ankle Surgery | DX: Z98.890 Other specified postprocedural states (principal); Z98.1 Arthrodesis status; S82.872A Displaced pilon fracture of left tibia, initial encounter for closed fracture; S82.832A Other fracture of upper and lower end of left fibula, initial encounter for closed fracture; X58.XXXA Exposure to other specified factors, initial encounter | CPT/HCPCS: 73610 ==

== ENCOUNTER 2025-01-19 16:13 | Outpatient (CLI) | payer MEDICARE, SELFPAY | END 2025-01-19 16:14 | disposition home or self-care (01) | LOC: SPT 16:14 | PROVIDERS: PCP Nurse Practitioner Family; Visit Provider Podiatrist Foot & Ankle Surgery | DX: Z47.89 Encounter for other orthopedic aftercare (principal); Z98.1 Arthrodesis status; S82.832D Other fracture of upper and lower end of left fibula, subsequent encounter for closed fracture with routine healing; S82.872D Displaced pilon fracture of left tibia, subsequent encounter for closed fracture with routine healing; X58.XXXD Exposure to other specified factors, subsequent encounter | CPT/HCPCS: L4361 ==

== ENCOUNTER → 2025-02-13 13:15 | Outpatient (BNVA) | payer MEDICARE, OTHER, SELFPAY | PROVIDERS: PCP Nurse Practitioner Family; Visit Provider Podiatrist Foot & Ankle Surgery | DX: Z98.1 Arthrodesis status (principal); S82.872A Displaced pilon fracture of left tibia, initial encounter for closed fracture; S82.832A Other fracture of upper and lower end of left fibula, initial encounter for closed fracture; X58.XXXA Exposure to other specified factors, initial encounter | CPT/HCPCS: 73610; 99214 ==